=== PATIENT | male | born 1950 | race Asian ===

== ENCOUNTER 2020-11-04 10:29 | Emergency (ER) | payer MEDICARE, SELFPAY ==
[2020-11-04 10:50] VITALS: BP 120/70; BP 152/71; PULSE 68; PULSE 70; RESP 15; TEMP 35.7; O2SAT 97; BMI 32.0
--- NOTE | 2020-11-04 10:56 | PC.NURSE ---
pt's daughter sonty osmani [phone].
--- NOTE | 2020-11-04 12:11 | US_ITS ---
EXAMINATION: US VENOUS ULTRASOUND WITH DOPPLER LOWER EXTREMITY, RIGHT CLINICAL INFORMATION: Pain COMPARISON: None TECHNIQUE: Ultrasound of the deep veins is performed from the hip to the calf with compression sonography and color and pulse Doppler assessment. Spectral analysis with color-flow imaging is performed. FINDINGS: There is normal venous compression and respiratory variation and augmented flow. The visualized common femoral vein, superficial femoral vein, profunda femoral vein, popliteal vein, and the trifurcation region shows no evidence of deep venous thrombosis. There is no significant popliteal fossa cyst. . If the patient's symptoms persist, followup ultrasound in 5 days 7 days might be of value to exclude proximal propagation from a non-visualized calf vein. US/US venous duplex LE RT IMPRESSION: No DVT demonstrated in the right lower extremity.
--- NOTE | 2020-11-04 12:11 | XR_ITS ---
EXAMINATION: CR CHEST CLINICAL INFORMATION: Syncope. COMPARISON: None TECHNIQUE: AP upright portable view of the chest was obtained. FINDINGS: The cardiomediastinal silhouette is within normal limits in size. Lungs bilaterally are symmetrically expanded. Mild reticular prominence is seen in the lung bases bilaterally, right greater than left, likely due to crowding of bronchovascular lung markings and mild atelectasis. No focal consolidation, effusion or pneumothorax is seen. Minimal convex left thoracolumbar scoliosis is seen and mild degenerative changes are noted at the AC joints. XR/XR chest 1V IMPRESSION: Slight reticular prominence in the lung bases, likely due to crowding of bronchovascular markings and mild atelectasis.
--- NOTE | 2020-11-04 12:23 | ED_ITS ---
HPI - Syncope General Chief Complaint: Syncope Stated Complaint: syncope Time Seen by Provider: 11/04/20 12:04 Source: patient Mode of arrival: EMS Limitations: no limitations History of Present Illness HPI narrative: Patient is a 70-year-old male with a past medical history stating of hypertension, on meds, he had 1 syncopal episode and 1 near sycopal episode in the last 12 hours, home. Patient also states he was drinking a lot of beer last night, was unable to quantify and amount. Denied hard liquor or IV drug use or any illegal street drugs. Patient states he did not hit his head when he fell, is not on a blood thinner. Patient denies chest pain, neck pain, back pain, abdominal pain, left arm pain, shortness of breath or any other symptoms. States he feels he is sober right now. Patient states he has been eating and drinking non alcoholic beverages as well as drinking alcoholic beverages as norm al. Related Data Allergies Allergy/AdvReac Type Severity Reaction Status Date / Time No Known Allergies Allergy Unknown Unverified 07/27/20 15:11 Review of Systems Review of Systems: Yes all other systems are reviewed and are negative [facility] Social History Social History Smoking Status: Never smoker Use of substances other than those prescribed or required for medical reasons: No Advance Directives: No Advance Directives Information Provided: No Physical Exam Vital Signs: Vital Signs: Last Vital Signs Temp 98.1 F 11/04/20 14:40 Pulse 78 11/04/20 14:40 Resp 20 11/04/20 14:40 BP 149/83 H 11/04/20 14:40 Pulse Ox 98 11/04/20 14:40 Body Mass Index 32.0 Const: General: cooperative, healthy appearing, comfortable, no acute distress and well developed Nutritional Appearance: average body habitus Or ientation/consciousness: patient oriented x3 HENMT: Head: Yes normal to inspection and Yes No palpable skull fracture present Ears: external ears normal General nose exam: Normal external nose present Face and sinus: Yes normal facial exam Mouth: Normal oral and palatal mucosa present Eyes: General: appearance normal, both eyes and all related structures EOM: EOMs intact bilaterally Neck: Neck: Yes normal visual inspection, Yes full ROM and Yes supple Chest: Chest palpation & inspection: normal inspection of the chest Resp: Effort & Inspection: normal respiratory effort and able to speak in complete sentences Auscultation: clear to auscultation bilaterally Cardio: Rate: regular rate Rhythm: regular rhythm Heart sounds: normal S1 and S2 GI: Inspection: Yes normal to inspection Palpation (GI): Soft to palpation and nontender Auscultation: normal bowel sounds Skin: General skin exam: no rashes or lesions noted Neuro: General: patient oriented x3 Cranial nerves: Yes CN's II-XII intact bilaterally Cognition (Neuro): normal cognition Extrem: General: Yes normal to inspection Psych: Appearance: grossly normal Course Course Course Narrative: 70-year-old male with no significant past medical history states he had 1 near syncopal episode last night and then a syncopal episode. He admits to drinking several beers last night and states he was drunk. Cardiac workup is negative, electrolytes are grossly normal. Only injury is to his lower lip. Patient has negative tox screen, negative ethyl alcohol. Will discharge home with follow-up to PCP for possible Holter monitor if symptoms continue but this is likely due to his drinking. MDM - Syncope Differential Diagnosis Differential diagnosis: Likely syncope due to orthostatic hypotension, vasovagal syncope, complete atrioventricular block and dehydration Lab Data Attestation: I reviewed the patient's lab results. Result diagrams: 11/04/20 13:37 11/04/20 13:37 Labs: Lab Results 11/04/20 11/04/20 11/04/20 Range/Units 13:37 13:37 13:37 WBC 9.2 (4.8-10.8) X10*3/uL RBC 4.84 (4.60-5.80) X10*6/uL Hgb 15.2 (14.0-18.0) g/dl Hct 46.1 (42-52) % MCV 95.2 (80-98) fL MCH 31.4 (27.0-33.0) pg MCHC 33.0 (31.0-36.0) g/dl RDW 11.9 (11.0-16.0) % Plt Count 246 (160-400) X10*3/uL MPV 9.8 (9.4-12.4) fL Immature Gran % (Auto) 0.2 (0.0-0.4) % Neut % (Auto) 91.5 H (45-73) % Lymph % (Auto) 5.0 L (20-40) % Glades % (Auto) 3.0 (2-11) % Eos % (Auto) 0.1 (0-4) % Baso % (Auto) 0.2 (0-2) % Lymph # (Auto) 0.5 L (1.2-4.9) X10*3/uL Glades # (Auto) 0.3 (0.1-1.2) X10*3/uL Eos # (Auto) 0.0 (0.0-0.4) X10*3/uL Baso # (Auto) 0.0 (0.0-0.2) X10*3/uL Abs Immat Gran (auto) 0.02 (0.00-0.03) X10*3/uL Absolute Neuts (auto) 8.4 H (2.0-8.3) X10*3/uL Absolute Nucleated RBC 0.000 (0.0-0.012) X10*3/uL Nucleated RBC % (auto) 0.0 (0.0-0.2) /100WBC Smear Tech's Comments VERIFIED Hold Blue Top SEE NOTE Sodium 143 (135-145) mmol/L Potassium 4.6 (3.3-5.1) mmol/l Chloride 103 (96-108) mmol/L Carbon Dioxide 30 H (22-29) mmol/L Anion Gap 15 (12-20) BUN 19 H (9-16) mg/dL Creatinine 1.02 (0.5-1.4) mg/dL Estim Creat Clear Calc 61.4 Estimated GFR > 60 Random Glucose 107 (60-115) mg/dL Calcium 9.8 (8.4-10.2) mg/dL Phosphorus 4.5 (2.7-4.5) mg/dL Magnesium (1.6-2.6) mg/dL Troponin I High Sens (<3.5-35.0) ng/L B-Natriuretic Peptide (<100) pg/mL Ethyl Alcohol mg/dL 11/04/20 11/04/20 11/04/20 Range/Units 13:37 13:37 13:37 WBC (4.8-10.8) X10*3/uL RBC (4.60-5.80) X10*6/uL Hgb (14.0-18.0) g/dl Hct (42-52) % MCV (80-98) fL MCH (27.0-33.0) pg MCHC (31.0-36.0) g/dl RDW (11.0-16.0) % Plt Count (160-400) X10*3/uL MPV (9.4-12.4) fL Immature Gran % (Auto) (0.0-0.4) % Neut % (Auto) (45-73) % Lymph % (Auto) (20-40) % Glades % (Auto) (2-11) % Eos % (Auto) (0-4) % Baso % (Auto) (0-2) % Lymph # (Auto) (1.2-4.9) X10*3/uL Glades # (Auto) (0.1-1.2) X10*3/uL Eos # (Auto) (0.0-0.4) X10*3/uL Baso # (Auto) (0.0-0.2) X10*3/uL Abs Immat Gran (auto) (0.00-0.03) X10*3/uL Absolute Neuts (auto) (2.0-8.3) X10*3/uL Absolute Nucleated RBC (0.0-0.012) X10*3/uL Nucleated RBC % (auto) (0.0-0.2) /100WBC Smear Tech's Comments Hold Blue Top Sodium (135-145) mmol/L Potassium (3.3-5.1) mmol/l Chloride (96-108) mmol/L Carbon Dioxide (22-29) mmol/L Anion Gap (12-20) BUN (9-16) mg/dL Creatinine (0.5-1.4) mg/dL Estim Creat Clear Calc Estimated GFR Random Glucose (60-115) mg/dL Calcium (8.4-10.2) mg/dL Phosphorus (2.7-4.5) mg/dL Magnesium 2.1 (1.6-2.6) mg/dL Troponin I High Sens < 3.5 (<3.5-35.0) ng/L B-Natriuretic Peptide 34 (<100) pg/mL Ethyl Alcohol < 10 mg/dL Imaging Data US Right LE: Attestation: I personally reviewed and interpreted this imaging study as follows: Radiologist's impression: [id number] [place] [id number] Ultrasound Report Signed Patient: Zi Bingham#: [id number] : 1950Acct:[id number] Age/Sex: 70 / MADM Date: 11/04/20 Loc: HO.ED Attending Dr: Ordering Physician: SHANI ANDRE Date of Service: 11/04/20 Procedure(s): US venous duplex LE RT Accession Number(s): [id number] cc: SHANI ANDRE~ EXAMINATION: US VENOUS ULTRASOUND WITH DOPPLER LOWER EXTREMITY, RIGHT CLINICAL INFORMATION: Pain COMPARISON: None TECHNIQUE: Ultrasound of the deep veins is performed from the hip to the calf with compression sonography and color and pulse Doppler assessment. Spectral analysis with color-flow imaging is performed. FINDINGS: There is normal venous compression and respiratory variation and augmented flow. The visualized common femoral vein, superficial femoral vein, profunda femoral vein, popliteal vein, and the trifurcation region shows no evidence of deep venous thrombosis. There is no significant popliteal fossa cyst. . If the patient's symptoms persist, followup ultrasound in 5 days 7 days might be of value to exclude proximal propagation from a non-visualized calf vein. US/US venous duplex LE RT IMPRESSION: No DVT demonstrated in the right lower extremity. Dictated By:KEN DOCKERY MD Signed By:<Electronically signed by KEN DOCKERY MD in OV>11/04/20 1427 ECG Data Attestation: I personally reviewed and interpreted this ECG as follows: ECG interpretation date: 11/04/20 ECG interpretation time: 13:03 Prior ECG tracings: available for review Interpretation: Normal sinus rhythm nonspecific T-wave or abnormality which was present in V1 in January 2007. T-wave inversions in V2 and V3 which were not on his January 2007 EKG. Discharge Plan Discharge Clinical Impression: Alcohol intoxication, Vasovagal syncope, Acute pain of right lower extremity Patient Disposition: Home, Self-Care Additional Instructions: Your ultrasound of your right lower leg could not exclude proximal propagation from a nonvisualized calf vein. If your symptoms persist, we recommend a follow-up ultrasound in 5-7 days. You can do this through your primary care provider, please let them know you had an ultrasound at the [facility] Emergency Department on 11/04/2020 and this was the recommendation for persistent pain.
[2020-11-04 13:20] VITALS: BP 158/86; PULSE 73; RESP 18; O2SAT 97; O2SAT 99
[2020-11-04] MEDS: Aspirin 81 MG TAB.CHEW 324 MG PO (13:26)
[2020-11-04 13:44] LABS: Basophils Percent Auto 0.2 % (0-2); Eosinophils Percent Auto 0.1 % (0-4); Hematocrit 46.1 % (42-52); Hemoglobin 15.2 g/dl (14.0-18.0); Imm Gran Abs Auto 0.02 X10*3/uL (0.00-0.03); Imm Gran Pct Auto 0.2 % (0.0-0.4); Lymphocytes Absolute Auto 0.5 X10*3/uL (1.2-4.9); MANUAL DIFF FLAG SCAN; Mean Corpuscular Hemoglobin 31.4 pg (27.0-33.0); Mean Corpuscular Volume 95.2 fL (80-98); Mean Platelet Volume 9.8 fL (9.4-12.4); Monocytes Absolute Auto 0.3 X10*3/uL (0.1-1.2); Neutrophils Absolute Auto 8.4 X10*3/uL (2.0-8.3); Neutrophils Percent Auto 91.5 % (45-73); Platelet Count 246 X10*3/uL (160-400); Red Blood Count 4.84 X10*6/uL (4.60-5.80); Red Cell Distribution Width 11.9 % (11.0-16.0); SCAN SMEAR FLAG 1; White Blood Count 9.2 X10*3/uL (4.8-10.8)
[2020-11-04 14:04] LABS: SLIDE REVIEW VERIFIED
[2020-11-04 14:14] LABS: Ethanol < 10 mg/dL
[2020-11-04 14:15] LABS: Anion Gap 15 (12-20); Blood Urea Nitrogen 19 mg/dL (9-16); Calcium 9.8 mg/dL (8.4-10.2); Carbon Dioxide 30 mmol/L (22-29); Chloride 103 mmol/L (96-108); Creatinine Clr Calc Pharmacy 61.4; Estimated Glomerular Filt Rate > 60; Glucose Random 107 mg/dL (60-115); Phosphorus 4.5 mg/dL (2.7-4.5); Potassium 4.6 mmol/l (3.3-5.1); Sodium 143 mmol/L (135-145)
[2020-11-04 14:16] LABS: Magnesium 2.1 mg/dL (1.6-2.6)
[2020-11-04 14:24] LABS: B Type Natriuretic Peptide 34 pg/mL (<100); Troponin-I High Sensitivity < 3.5 ng/L (<3.5-35.0)
[2020-11-04 14:26] VITALS: PULSE 81; RESP 14; O2SAT 97
[2020-11-04 14:40] VITALS: BP 149/83; PULSE 78; RESP 20; TEMP 36.7; O2SAT 98
--- NOTE | 2020-11-07 | ECG_ITS ---
Test Reason : LEG PAIN Blood Pressure : / mmHG Vent. Rate : 067 BPM Atrial Rate : 067 BPM P-R Int : 166 ms QRS Dur : 082 ms QT Int : 424 ms P-R-T Axes : 061 041 071 degrees QTc Int : 448 ms Normal sinus rhythm Nonspecific T wave abnormality ; possibly ischemia Abnormal ECG When compared with ECG of 25-JAN-2007 16:31, Nonspecific T wave abnormality now evident in Anterolateral leads Referred By: Karlo Mobley Electronically Signed By:JONATHAN MASTERSON
== END 2020-11-04 15:15 | disposition home or self-care (01) ==
PROVIDERS: Physician Assistant; Emergency Provider Emergency Medicine Emergency Medical Services
DX: F10.920 Alcohol use, unspecified with intoxication, uncomplicated (principal); Y90.0 Blood alcohol level of less than 20 mg/100 ml; R55 Syncope and collapse; M79.661 Pain in right lower leg
CPT/HCPCS: 36415; 71045; 80048; 80320; 83735; 83880; 84100; 84484; 85025; 93005; 93971; 99285

== ENCOUNTER 2020-12-14 08:53 | Outpatient (REF) | payer MEDICARE, SELFPAY ==
[2020-12-14 10:13] LABS: Anion Gap 13 (12-20); Blood Urea Nitrogen 18 mg/dL (9-16); Calcium 9.3 mg/dL (8.4-10.2); Carbon Dioxide 27 mmol/L (22-29); Chloride 104 mmol/L (96-108); Creatinine Urine 14.85 mg/dL; Estimated Glomerular Filt Rate > 60; Sodium 140 mmol/L (135-145); Total Protein Urine Random < 7 mg/dL (<12)
== END 2020-12-14 08:54 | disposition home or self-care (01) ==
LOC: HO.LAB 08:53
PROVIDERS: Visit Provider Internal Medicine Hypertension Specialist
DX: I12.9 Hypertensive chronic kidney disease with stage 1 through stage 4 chronic kidney disease, or unspecified chronic kidney disease (principal); N18.2 Chronic kidney disease, stage 2 (mild)
CPT/HCPCS: 36415; 80051; 82310; 82565; 84156; 84520

== ENCOUNTER 2021-07-20 06:49 | Outpatient (REF) | payer MEDICARE, SELFPAY ==
[2021-07-20 07:36] LABS: MANUAL DIFF FLAG NO
[2021-07-20 07:38] LABS: Basophils Percent Auto 0.7 % (0-2); Eosinophils Absolute Auto 0.3 X10*3/uL (0.0-0.4); Eosinophils Percent Auto 5.1 % (0-4); Hematocrit 40.9 % (42-52); Hemoglobin 13.4 g/dl (14.0-18.0); Imm Gran Abs Auto 0.02 X10*3/uL (0.00-0.03); Imm Gran Pct Auto 0.3 % (0.0-0.4); Lymphocytes Absolute Auto 1.5 X10*3/uL (1.2-4.9); Lymphocytes Percent Auto 24.5 % (20-40); Mean Corpuscular HGB Conc 32.8 g/dl (31.0-36.0); Mean Corpuscular Hemoglobin 31.1 pg (27.0-33.0); Mean Corpuscular Volume 94.9 fL (80-98); Mean Platelet Volume 10.9 fL (9.4-12.4); Monocytes Absolute Auto 0.6 X10*3/uL (0.1-1.2); Monocytes Percent Auto 9.9 % (2-11); Neutrophils Absolute Auto 3.6 X10*3/uL (2.0-8.3); Neutrophils Percent Auto 59.5 % (45-73); Platelet Count 195 X10*3/uL (160-400); Red Blood Count 4.31 X10*6/uL (4.60-5.80); Red Cell Distribution Width 12.6 % (11.0-16.0); White Blood Count 6.1 X10*3/uL (4.8-10.8)
[2021-07-20 07:59] LABS: Alanine Aminotransferase 20 U/L (0-40); Albumin Level 3.9 g/dL (3.5-5.0); Alkaline Phosphatase 91 U/L (39-117); Anion Gap 8 (12-20); Aspartate Amino Transferase 21 U/L (5-37); Blood Urea Nitrogen 12 mg/dL (9-16); Calcium 9.8 mg/dL (8.4-10.2); Carbon Dioxide 30 mmol/L (22-29); Chloride 109 mmol/L (96-108); Cholesterol 174 mg/dL; Estimated Glomerular Filt Rate > 60; Glucose Random 83 mg/dL (60-115); HDL Cholesterol 62 mg/dL; LDL Cholesterol Calculated 93 mg/dl; Potassium 3.9 mmol/L (3.3-5.1); Sodium 143 mmol/L (135-145); Total Protein 7.2 g/dL (6.5-8.0); Triglycerides 96 mg/dL
[2021-07-20 09:34] LABS: Creatinine Urine 140.76 mg/dL; Protein/Creatinine Ratio, Ur 0.11 (<0.2); Total Protein Urine Random 15 mg/dL (<12)
== END 2021-07-20 06:50 | disposition home or self-care (01) ==
LOC: HO.LAB 06:49
PROVIDERS: PCP Internal Medicine; Visit Provider Internal Medicine Hypertension Specialist
DX: N18.2 Chronic kidney disease, stage 2 (mild) (principal)
CPT/HCPCS: 36415; 80053; 80061; 84156; 85025

== ENCOUNTER 2021-08-23 06:17 | Outpatient (REF) | payer MEDICARE, SELFPAY ==
[2021-08-23 11:29] LABS: MANUAL DIFF FLAG NO
[2021-08-23 11:35] LABS: Basophils Percent Auto 0.6 % (0-2); Eosinophils Absolute Auto 0.4 X10*3/uL (0.0-0.4); Eosinophils Percent Auto 7.1 % (0-4); Hematocrit 40.9 % (42-52); Hemoglobin 13.1 g/dl (14.0-18.0); Imm Gran Abs Auto 0.02 X10*3/uL (0.00-0.03); Imm Gran Pct Auto 0.4 % (0.0-0.4); Lymphocytes Absolute Auto 1.7 X10*3/uL (1.2-4.9); Mean Corpuscular Hemoglobin 30.8 pg (27.0-33.0); Mean Corpuscular Volume 96.2 fL (80-98); Mean Platelet Volume 11.5 fL (9.4-12.4); Monocytes Absolute Auto 0.5 X10*3/uL (0.1-1.2); Monocytes Percent Auto 9.4 % (2-11); Neutrophils Absolute Auto 2.3 X10*3/uL (2.0-8.3); Neutrophils Percent Auto 47.5 % (45-73); Platelet Count 261 X10*3/uL (160-400); Red Blood Count 4.25 X10*6/uL (4.60-5.80); Red Cell Distribution Width 12.4 % (11.0-16.0); White Blood Count 4.9 X10*3/uL (4.8-10.8)
[2021-08-23 11:54] LABS: Alanine Aminotransferase 19 U/L (0-40); Albumin Level 3.9 g/dL (3.5-5.0); Alkaline Phosphatase 113 U/L (39-117); Anion Gap 9 (12-20); Aspartate Amino Transferase 28 U/L (5-37); Bilirubin Total 0.2 mg/dL (0.0-1.0); Blood Urea Nitrogen 19 mg/dL (9-16); Calcium 9.1 mg/dL (8.4-10.2); Carbon Dioxide 29 mmol/L (22-29); Chloride 108 mmol/L (96-108); Cholesterol 167 mg/dL; Estimated Average Glucose 85 mg/dL; Estimated Glomerular Filt Rate > 60; Glucose Random 81 mg/dL (60-115); HDL Cholesterol 59 mg/dL; Hemoglobin A1c % 4.6 %; LDL Cholesterol Calculated 95 mg/dl; Potassium 4.4 mmol/L (3.3-5.1); Sodium 142 mmol/L (135-145); Total Protein 7.2 g/dL (6.5-8.0); Triglycerides 67 mg/dL
[2021-08-23 12:11] LABS: Free T4 (Free Thyroxine) 0.95 ng/dL (0.71-1.85); Prostate Specific Antigen Scr 0.56 ng/mL (<0.05-4.0)
[2021-08-23 12:26] LABS: Folate 6.5 ng/mL (> or = 4.0); Vitamin B12 947 pg/mL (200-900)
== END 2021-08-23 06:18 | disposition home or self-care (01) ==
LOC: HO.HMGCLDS 06:17
PROVIDERS: PCP Internal Medicine; Visit Provider Internal Medicine
DX: Z12.5 Encounter for screening for malignant neoplasm of prostate (principal); E78.00 Pure hypercholesterolemia, unspecified; I10 Essential (primary) hypertension
CPT/HCPCS: 36415; 80053; 80061; 82607; 82746; 83036; 84153; 84439; 84443; 85025

== ENCOUNTER 2022-01-23 06:26 | Day surgery (SDC) | payer MEDICARE, SELFPAY ==
[2022-01-17 11:59] VITALS: BMI 23.1
--- NOTE | 2022-01-21 14:30 | HO.ANESPROP2 ---
Documented by User: Kathy Lora NP 01/21/22 14:32 HPI - Anesthesia Eval Consult details Narrative: 71yo M for Colonoscopy PMFSH Active Problems Active Problems: All Active Problems (Updated 01/17/22 @ 11:59 by Kamala Funez RN) Colon cancer screening (Acute) Constipation (Acute) Peripheral neuropathy (Acute) Encounter for Medicare annual wellness exam (Acute ~08/31/21) Mild depression (Acute) Nephrotic syndrome (Acute) Hypercholesterolemia (Acute) Hypertension (Acute) Past Medical History Medical History Alcohol intoxication Chronic renal insufficiency COVID-19 vaccine series completed Hypercholesterolemia Hypertension Surgical History Surgical History Hx of hand surgery Social History Social History (Updated 08/31/21 @ 14:17 by ANDRESSA Marie) Housing: House Are you a primary personal care attendant to a significant other at home: No Do you presently have visiting nurse or other home services: No Alcohol intake: current Alcohol intake frequency: a few times a month Patient Tobacco Use Status: Never used Tobacco Use of substances other than those prescribed or required for medical reasons: No Have you been hit, kicked, punched, or otherwise hurt by someone within the past year? If so, by whom?: No Are you DNR?: No Advance Directives: Yes (HCP dated 01/26/07) Advance Directives Information Provided: Yes Advance Directives on File: Yes Advance Directives Date on File: 08/19/14 Recently lost weight without trying: No Eating poorly because of decreased appetite: No Nutrition Risks: No Nutritional Risk Poor oral hygiene: No service: No Current occupational status: retired [employer] Allergies Allergy/AdvReac Type Severity Reaction Status Date / Time No Known Allergies Allergy Unknown Verified 01/23/22 05:59 Home Medications Medication Instructions Recorded Confirmed Last Taken Type cholecalciferol (vitamin D3) 125 125 mcg PO DAILY 03/22/21 01/17/22 Unknown History mcg (5,000 unit) capsule losartan 100 mg tablet 100 mg PO DAILY 03/22/21 01/17/22 Unknown History simvastatin 20 mg tablet 20 mg PO DAILY 03/22/21 01/17/22 Unknown History Exam Exam Date and Time: January 21, 2022 1430 Height,Weight and Vital Signs: Height 5 ft 4 in Weight 61.235 kg Pertinent Lab Results Pertinent Lab Results: Laboratory Tests 08/23/21 08/23/21 06:25 06:25 WBC 4.9 Hgb 13.1 L Hct 40.9 L Plt Count 261 D Sodium 142 Potassium 4.4 Chloride 108 Carbon Dioxide 29 BUN 19 H D Creatinine 0.90 Assessment and Plan Assessment Anesthesia Assessment: Chart Reviewed Documented by User: Tato Little MD 01/23/22 14:48 HPI - Anesthesia Eval Consult details Narrative: 71yo M for Colonoscopy. [facility] Past Medical History Medical History Alcohol intoxication Chronic renal insufficiency COVID-19 vaccine series completed Hypercholesterolemia Hypertension Family History Family history of problems with anesthesia: No Surgical History Surgical History Hx of hand surgery History of Problems with Anesthesia: No Social History Social History (Updated 08/31/21 @ 14:17 by ANDRESSA Marie) Housing: House Are you a primary personal care attendant to a significant other at home: No Do you presently have visiting nurse or other home services: No Alcohol intake: current Alcohol intake frequency: a few times a month Patient Tobacco Use Status: Never used Tobacco Use of substances other than those prescribed or required for medical reasons: No Have you been hit, kicked, punched, or otherwise hurt by someone within the past year? If so, by whom?: No Are you DNR?: No Advance Directives: Yes (HCP dated 01/26/07) Advance Directives Information Provided: Yes Advance Directives on File: Yes Advance Directives Date on File: 08/19/14 Recently lost weight without trying: No Eating poorly because of decreased appetite: No Nutrition Risks: No Nutritional Risk Poor oral hygiene: No service: No Current occupational status: retired Meds Allergies Allergy/AdvReac Type Severity Reaction Status Date / Time No Known Allergies Allergy Unknown Verified 01/23/22 05:59 Home Medications Medication Instructions Recorded Confirmed Last Taken Type cholecalciferol (vitamin D3) 125 125 mcg PO DAILY 03/22/21 01/17/22 Unknown History mcg (5,000 unit) capsule losartan 100 mg tablet 100 mg PO DAILY 03/22/21 01/17/22 Unknown History simvastatin 20 mg tablet 20 mg PO DAILY 03/22/21 01/17/22 Unknown History Exam Airway Mallampati Class: II TM Dist: >3cm Neck ROM: Full Loose/Missing/Broken Teeth: Yes Heart: rrr Lungs: bl breath sounds Assessment and Plan Final Anesthetic Review Family History of Problems with Anesthesia: No History of Problems with Anesthesia: No NPO: Yes ASA Class: III Final Preanesthetic Review: Meds/Allgs Chart Reviewed, Consent Obtained/Reviewed and Anes Risks/Benef Reviewed Patient Risk: Intermediate Procedure Risk: Intermediate Anesthetic Plan Anesthetic Plan: MAC: Disposition: Standard PACU
[2022-01-23 06:56] VITALS: BP 188/90; PULSE 84; RESP 16; TEMP 36.6; O2SAT 99
[2022-01-23] MEDS: Lactated Ringers 1,000 ML 100 ML IVCONT (07:01)
[2022-01-23 08:27] VITALS: BP 116/63; PULSE 65; RESP 17; TEMP 36.8; O2SAT 97
--- NOTE | 2022-01-23 08:27 | P.BOP_ITS ---
Brief Operative Note Date of Service: 01/23/22 Pre-op diagnosis: Screening Post-op diagnosis: other (Polyps, Hemorrhoids) Procedure: Colonoscopy to the cecum and TI with bx/removal of polyps Surgeon: Paul Alba Anesthesia: MAC Was an [employer] Firearms used for this Procedure?: No Estimated blood loss (mL): 2.0 Pathology: other (A. Ascending colon polyps B. Polyp at 20cm) Condition: stable Disposition: PACU
[2022-01-23 08:42] VITALS: BP 152/78; PULSE 64; RESP 16; TEMP 36.5; O2SAT 96
--- NOTE | 2022-01-23 10:05 | OP_ITS ---
SURGEON: Paul Alba MD INDICATIONS: The patient presents for evaluation of colorectal cancer screening. Full consent was obtained from him for this, including risks of bleeding and perforation. PREOPERATIVE DIAGNOSIS: Colorectal cancer screening. POSTOPERATIVE DIAGNOSIS: PROCEDURE PERFORMED: Colonoscopy to the cecum and terminal ileum with biopsy and removal of polyps. ESTIMATED BLOOD LOSS: COMPLICATIONS: ANESTHESIA: Monitored anesthesia care. ASSISTANTS: SPECIMENS: POSTOPERATIVE DIAGNOSES: Colorectal cancer screening, small colon polyps, diverticulosis, internal and external hemorrhoids. DESCRIPTION OF PROCEDURE: The patient was placed in the left lateral decubitus position. The digital rectal exam revealed a large, nontender, soft external hemorrhoid. The Olympus video pediatric colonoscope was entered into the rectum and advanced easily to the cecum. Once in the cecum, I did identify normal-appearing cecal pouch with appendiceal orifice and a normal-appearing ileocecal valve. The terminal ileum was cannulated and appeared normal. The scope was withdrawn back in the colon. The entire cecum and ileocecal valve appeared normal. The scope was slowly withdrawn assessing all mucosal surfaces carefully. Preparation was excellent. In the ascending colon were 2 flat, approximately 4 mm polyps, which were each biopsied and completely removed with cold biopsy forceps. At 30 cm, was a flat 3 or 4 mm polyp, which was biopsied and completely removed with cold biopsy forceps. I did not visualize any other polyps, colitis, or angiodysplasia. There was a mild amount of sigmoid diverticulosis. In the rectum, scope was retroflexed visualizing internal hemorrhoids, but no other pathology. The rectal mucosa appeared normal. Scope was straightened and withdrawn from the patient. He tolerated the procedure well and was returned to recovery area in stable condition. IMPRESSION: 1. Colon polyps, status post biopsy and removal. 2. Diverticulosis. 3. Internal and external hemorrhoids. PLAN: The results of the biopsies will be checked. If these are tubular adenoma, I would recommend a followup colonoscopy in 5 years. If they are only hyperplastic then I do not think he would need a further screening colonoscopies. He was advised not to use any aspirin or NSAIDs for 1 week. In regard to the large external hemorrhoid, I did give him the name of Dr. Ochoa in the event it becomes bothersome from a symptomatic standpoint. MD JOANNE Perez/TAMERA / [id number] ABEL
== END 2022-01-23 09:13 | disposition home or self-care (01) ==
PROVIDERS: PCP Internal Medicine; Visit Provider Internal Medicine
PROC: 0DJD8ZZ Inspection of Lower Intestinal Tract, Via Natural or Artificial Opening Endoscopic (ICD-10-PCS; CPT 45378; principal; 2022-01-23 07:30)
DX: Z12.11 Encounter for screening for malignant neoplasm of colon (principal); D12.2 Benign neoplasm of ascending colon; D12.5 Benign neoplasm of sigmoid colon; K57.30 Diverticulosis of large intestine without perforation or abscess without bleeding; K64.8 Other hemorrhoids; K64.4 Residual hemorrhoidal skin tags; E78.00 Pure hypercholesterolemia, unspecified; I12.9 Hypertensive chronic kidney disease with stage 1 through stage 4 chronic kidney disease, or unspecified chronic kidney disease; N18.2 Chronic kidney disease, stage 2 (mild); Z79.899 Other long term (current) drug therapy
CPT/HCPCS: 45380; 88305

== ENCOUNTER 2022-01-25 07:47 | Outpatient (REF) | payer MEDICARE, SELFPAY ==
[2022-01-25 11:45] LABS: Creatinine Urine 91.43 mg/dL
[2022-01-25 11:48] LABS: Anion Gap 10 (12-20); Blood Urea Nitrogen 10 mg/dL (9-16); Calcium 9.1 mg/dL (8.4-10.2); Carbon Dioxide 27 mmol/L (22-29); Chloride 108 mmol/L (96-108); Estimated Glomerular Filt Rate > 60; Potassium 3.8 mmol/L (3.3-5.1); Sodium 141 mmol/L (135-145)
[2022-01-25 11:58] LABS: Protein/Creatinine Ratio, Ur 2.31 (<0.2); Total Protein Urine Random 211 mg/dL (<12)
== END 2022-01-25 07:48 | disposition home or self-care (01) ==
LOC: HO.HMGCLDS 07:47
PROVIDERS: PCP Internal Medicine; Visit Provider Internal Medicine Hypertension Specialist
DX: N04.1 Nephrotic syndrome with focal and segmental glomerular lesions (principal)
CPT/HCPCS: 36415; 80051; 82310; 82565; 84156; 84520

== ENCOUNTER 2022-02-26 08:08 | Outpatient (REF) | payer MEDICARE, SELFPAY ==
[2022-02-26 11:52] LABS: Hematocrit 44.3 % (42.0-52.0); Hemoglobin 14.1 g/dl (14.0-18.0); Mean Corpuscular HGB Conc 31.8 g/dl (31.0-36.0); Mean Corpuscular Hemoglobin 30.8 pg (27.0-33.0); Mean Corpuscular Volume 96.7 fL (80.0-98.0); Mean Platelet Volume 10.8 fL (9.4-12.4); Platelet Count 232 X10*3/uL (160-400); Red Blood Count 4.58 X10*6/uL (4.60-5.80); Red Cell Distribution Width 14.4 % (11.0-16.0); White Blood Count 5.8 X10*3/uL (4.8-10.8)
[2022-02-26 12:08] LABS: Anion Gap 13 (12-20); Blood Urea Nitrogen 18 mg/dL (9-16); Calcium 9.6 mg/dL (8.4-10.2); Carbon Dioxide 25 mmol/L (22-29); Chloride 105 mmol/L (96-108); Estimated Glomerular Filt Rate > 60; Sodium 139 mmol/L (135-145)
[2022-02-26 12:30] LABS: Creatinine Urine 107.97 mg/dL; Total Protein Urine Random < 7 mg/dL (<12)
== END 2022-02-26 08:09 | disposition home or self-care (01) ==
LOC: HO.HMGCLDS 08:08
PROVIDERS: PCP Internal Medicine; Visit Provider Internal Medicine Hypertension Specialist
DX: N04.1 Nephrotic syndrome with focal and segmental glomerular lesions (principal)
CPT/HCPCS: 36415; 80051; 82310; 82565; 84156; 84520; 85027

== ENCOUNTER 2022-04-16 06:43 | Outpatient (REF) | payer MEDICARE, SELFPAY ==
[2022-04-16 11:35] LABS: MANUAL DIFF FLAG NO
[2022-04-16 11:40] LABS: Basophils Percent Auto 0.3 % (0-2); Eosinophils Percent Auto 0.3 % (0-4); Hematocrit 45.3 % (42.0-52.0); Hemoglobin 14.2 g/dl (14.0-18.0); Imm Gran Abs Auto 0.02 X10*3/uL (0.00-0.03); Imm Gran Pct Auto 0.3 % (0.0-0.4); Lymphocytes Absolute Auto 1.3 X10*3/uL (1.2-4.9); Lymphocytes Percent Auto 21.4 % (20-40); Mean Corpuscular HGB Conc 31.3 g/dl (31.0-36.0); Mean Corpuscular Hemoglobin 31.1 pg (27.0-33.0); Mean Corpuscular Volume 99.1 fL (80.0-98.0); Mean Platelet Volume 10.7 fL (9.4-12.4); Monocytes Absolute Auto 0.3 X10*3/uL (0.1-1.2); Monocytes Percent Auto 5.6 % (2-11); Neutrophils Absolute Auto 4.3 x10*3/uL (2.0-8.3); Neutrophils Percent Auto 72.1 % (45-73); Platelet Count 230 X10*3/uL (160-400); Red Blood Count 4.57 X10*6/uL (4.60-5.80); Red Cell Distribution Width 13.2 % (11.0-16.0); White Blood Count 5.9 X10*3/uL (4.8-10.8)
[2022-04-16 11:53] LABS: Alanine Aminotransferase 25 U/L (0-40); Albumin Level 4.1 g/dL (3.5-5.0); Alkaline Phosphatase 71 U/L (39-117); Anion Gap 12 (12-20); Aspartate Amino Transferase 22 U/L (5-37); Bilirubin Total 0.6 mg/dL (0.0-1.0); Blood Urea Nitrogen 19 mg/dL (9-16); Calcium 9.4 mg/dL (8.4-10.2); Carbon Dioxide 26 mmol/L (22-29); Chloride 107 mmol/L (96-108); Estimated Glomerular Filt Rate > 60; Glucose Random 116 mg/dL (60-115); Magnesium 2.4 mg/dL (1.6-2.6); Phosphorus 3.4 mg/dL (2.7-4.5); Sodium 141 mmol/L (135-145); Total Protein 7.1 g/dL (6.5-8.0)
[2022-04-16 12:14] LABS: Creatinine Urine 95.61 mg/dL; Total Protein Urine Random < 7 mg/dL (<12)
== END 2022-04-16 06:44 | disposition home or self-care (01) ==
LOC: HO.HMGCLDS 06:43
PROVIDERS: Absent Provider Internal Medicine Hypertension Specialist; PCP Internal Medicine; Visit Provider Internal Medicine
DX: N04.1 Nephrotic syndrome with focal and segmental glomerular lesions (principal); R25.2 Cramp and spasm
CPT/HCPCS: 36415; 80053; 83735; 84100; 84156; 85025

== ENCOUNTER 2022-05-03 18:23 | Emergency (ER) | payer MEDICARE, SELFPAY ==
[2022-05-03 19:05] VITALS: BP 124/82; PULSE 81; RESP 24; TEMP 36.9; O2SAT 98; BMI 23.1
[2022-05-03 19:21] LABS: MANUAL DIFF FLAG NO
[2022-05-03 19:23] LABS: Basophils Percent Auto 0.1 % (0-2); Eosinophils Percent Auto 0.1 % (0-4); Hematocrit 41.7 % (42.0-52.0); Hemoglobin 13.8 g/dl (14.0-18.0); Imm Gran Abs Auto 0.02 X10*3/uL (0.00-0.03); Imm Gran Pct Auto 0.3 % (0.0-0.4); Lymphocytes Absolute Auto 0.9 X10*3/uL (1.2-4.9); Lymphocytes Percent Auto 13.7 % (20-40); Mean Corpuscular HGB Conc 33.1 g/dl (31.0-36.0); Mean Corpuscular Hemoglobin 31.8 pg (27.0-33.0); Mean Corpuscular Volume 96.1 fL (80.0-98.0); Mean Platelet Volume 9.9 fL (9.4-12.4); Monocytes Absolute Auto 0.7 X10*3/uL (0.1-1.2); Monocytes Percent Auto 10.6 % (2-11); Neutrophils Absolute Auto 5.1 x10*3/uL (2.0-8.3); Neutrophils Percent Auto 75.2 % (45-73); Platelet Count 176 X10*3/uL (160-400); Red Blood Count 4.34 X10*6/uL (4.60-5.80); White Blood Count 6.8 X10*3/uL (4.8-10.8)
[2022-05-03 19:35] LABS: COVID-19 Test Positive (Negative)
[2022-05-03 19:38] LABS: Alanine Aminotransferase 50 U/L (0-40); Albumin Level 3.8 g/dL (3.5-5.0); Alkaline Phosphatase 70 U/L (39-117); Anion Gap 14 (12-20); Aspartate Amino Transferase 43 U/L (5-37); Bilirubin Total 0.7 mg/dL (0.0-1.0); Blood Urea Nitrogen 23 mg/dL (9-16); Calcium 8.8 mg/dL (8.4-10.2); Carbon Dioxide 24 mmol/L (22-29); Chloride 99 mmol/L (96-108); Creatinine Clr Calc Pharmacy 47.5; Estimated Glomerular Filt Rate 57; Glucose Random 103 mg/dL (60-115); Potassium 3.7 mmol/L (3.3-5.1); Sodium 133 mmol/L (135-145); Total Protein 6.6 g/dL (6.5-8.0)
--- NOTE | 2022-05-03 22:48 | ED_ITS ---
HPI - General Adult General Chief complaint: General Medical Stated complaint: COVID+/hemorrhoids complications Time Seen by Provider: 05/03/22 18:26 History of Present Illness HPI narrative: Patient is 71 years old with a history of coughing congestion upper respiratory symptoms that been ongoing for about 5 days. Coughing nonproductive. Patient had a home COVID test was positive. The [facility] received 2 shots of vaccine +1 dose of booster. Positive history of colon adenoma removal. History of hemorrhoids. History of hypercholesterolemia hypertension. Patient also complaining of his hemorrhoids hurting for the last few months not getting any better wants help. Patient from home. Related Data Home Medications Medication Instructions Recorded Confirmed cholecalciferol (vitamin D3) 125 125 mcg PO DAILY 03/22/21 03/01/22 mcg (5,000 unit) capsule losartan 100 mg tablet 100 mg PO DAILY 03/22/21 03/01/22 simvastatin 20 mg tablet 20 mg PO DAILY 03/22/21 03/01/22 mycophenolate mofetil 500 mg tablet 500 mg PO BID 03/01/22 03/01/22 prednisone 10 mg tablet 15 mg PO DAILY 03/01/22 03/01/22 Previous Rx's Medication Instructions Recorded diclofenac sodium 1 % topical gel 4 g topical QID #100 grams 03/01/22 (Voltaren Arthritis Pain) hydrocortisone 2.5 % topical cream 1 appl TN BID-QID PRN itching #30 03/01/22 with perineal applicator grams (Proctosol HC) polyethylene glycol 3350 17 gram 17 g PO DAILY 30 days #30 ea 03/01/22 oral powder packet (Miralax) tizanidine 4 mg capsule 4 mg PO BEDTIME PRN muscle 03/01/22 spasticity 30 days #30 caps hydrocortisone 1 % topical cream 1 appl topical TID PRN hemorrhoids 05/03/22 (Preparation H Hydrocortisone) #28.4 grams Allergies Allergy/AdvReac Type Severity Reaction Status Date / Time No Known Allergies Allergy Unknown Verified 03/01/22 14:49 Review of Systems Review of Systems: Positive coughing upper respiratory symptoms Yes all other systems are reviewed and are negative PMFSH Past Medical History Attestation statement: The following information was validated with the patient. Medical History Alcohol intoxication Chronic renal insufficiency Colon cancer screening COVID-19 vaccine series completed Surgical History Hx of hand surgery Social History Social History Housing: House Are you a primary child care center administrator to a significant other at home: No Do you presently have visiting nurse or other home services: No Alcohol intake: current Alcohol intake frequency: a few times a month Patient Tobacco Use Status: Former Tobacco user Tobacco use type: Cigarette e-Cigarette/Vaping Use: Never Used Advance Directives: Yes Advance Directives on File: Yes Advance Directives Date on File: 01/24/22 service: No Current occupational status: retired Cognitive needs: No Hearing needs: No Vision needs: Yes Physical Exam ED Vital Signs: Vital Signs - 24 hr 05/03/22 19:05 Temperature 98.4 F Pulse Rate 81 Respiratory Rate 24 H Blood Pressure 124/82 Pulse Oximetry 98 Oxygen Delivery Method Room Air BMI result Body Mass Index 23.1 Appearance: Alert. Oriented X3. No acute distress. Eyes: Pupils equal, round and reactive to light. ENT: Pharynx normal. Neck: Normal inspection. Neck supple. No lymph nodes noted. No crepitus CVS: Normal heart rate and rhythm. Pulses normal. Normal S1 and S2 Respiratory: No respiratory distress. Breath sounds normal. No Wheezing. No rales Abdomen: Soft and nontender. No rigidity. No distention. good BS x4 Rectal exam done with nurse Skye present there is a large external hemorrhoid noted. No active bleeding. Skin: Skin warm and dry. Normal skin color. Normal skin turgor. Extremities: No lower extremity edema. Neurovascular intact to all extremities. No Lacerations. No Rash Neuro: Oriented X 3. No motor deficit. No sensory deficit. Moving all extermities. No slurred speech Medical Decision Making MDM Narrative Medical decision making narrative: Large external hemorrhoid. Will need follow-up with surgery on an outpatient basis. Positive COVID lungs are clear O2 sat 90% symptoms 5 days not a candidate for paxlovid. Will discharge patient home symptomatic control. Lab Data Result diagrams: 05/03/22 19:13 05/03/22 19:13 Labs: Lab Results 06/24/22 06/24/22 06/24/22 Range/Units 19:13 19:13 19:13 WBC 6.8 (4.8-10.8) X10*3/uL RBC 4.34 L (4.60-5.80) X10*6/uL Hgb 13.8 L (14.0-18.0) g/dl Hct 41.7 L (42.0-52.0) % MCV 96.1 (80.0-98.0) fL MCH 31.8 (27.0-33.0) pg MCHC 33.1 (31.0-36.0) g/dl RDW 13.0 (11.0-16.0) % Plt Count 176 (160-400) X10*3/uL MPV 9.9 (9.4-12.4) fL Immature Gran % (Auto) 0.3 (0.0-0.4) % Neut % (Auto) 75.2 H (45-73) % Lymph % (Auto) 13.7 L (20-40) % [place] % (Auto) 10.6 (2-11) % Eos % (Auto) 0.1 (0-4) % Baso % (Auto) 0.1 (0-2) % Lymph # (Auto) 0.9 L (1.2-4.9) X10*3/uL [place] # (Auto) 0.7 (0.1-1.2) X10*3/uL Eos # (Auto) 0.0 (0.0-0.4) X10*3/uL Baso # (Auto) 0.0 (0.0-0.2) X10*3/uL Abs Immat Gran (auto) 0.02 (0.00-0.03) X10*3/uL Absolute Neuts (auto) 5.1 (2.0-8.3) x10*3/uL Absolute Nucleated RBC 0.000 (0.0-0.012) X10*3/uL Nucleated RBC % (auto) 0.0 (0.0-0.2) /100WBC Sodium 133 L (135-145) mmol/L Potassium 3.7 (3.3-5.1) mmol/L Chloride 99 (96-108) mmol/L Carbon Dioxide 24 (22-29) mmol/L Anion Gap 14 (12-20) BUN 23 H (9-16) mg/dL Creatinine 1.24 (0.5-1.4) mg/dL Estim Creat Clear Calc 47.5 Estimated GFR 57 Random Glucose 103 (60-115) mg/dL Calcium 8.8 D (8.4-10.2) mg/dL Total Bilirubin 0.7 (0.0-1.0) mg/dL AST 43 H D (5-37) U/L ALT 50 H (0-40) U/L Alkaline Phosphatase 70 (39-117) U/L Total Protein 6.6 (6.5-8.0) g/dL Albumin 3.8 (3.5-5.0) g/dL COVID-19 (DOMINGO) Positive A (Negative) COVID-19 Clin Com See Note Discharge Plan Discharge Clinical Impression: COVID-19, External hemorrhoid Patient Disposition: Home, Self-Care Prescriptions: New hydrocortisone [Preparation H Hydrocortisone] 1 % cream 1 appl topical TID PRN (Reason: hemorrhoids) Qty: 28.4 0RF No Action simvastatin 20 mg tablet 20 mg PO DAILY losartan 100 mg tablet 100 mg PO DAILY cholecalciferol (vitamin D3) 125 mcg (5,000 unit) capsule 125 mcg PO DAILY prednisone 10 mg tablet 15 mg PO DAILY mycophenolate mofetil 500 mg tablet 500 mg PO BID tizanidine 4 mg capsule 4 mg PO BEDTIME PRN (Reason: muscle spasticity) 30 Days Qty: 30 3RF polyethylene glycol 3350 [Miralax] 17 gram powder in packet 17 g PO DAILY 30 Days Qty: 30 5RF hydrocortisone [Proctosol HC] 2.5 % cream with perineal applicator 1 appl TN BID-QID PRN (Reason: itching) Qty: 30 5RF diclofenac sodium [Voltaren Arthritis Pain] 1 % gel 4 g topical QID Qty: 100 1RF Rx Instructions: apply to single knee, ankle, foot; for foot includes sole/toes/top of foot Referrals: Po,Edilberto Perea MD [Primary Care Provider] - Jose Manuel Ochoa MD [Physician] -
== END 2022-05-03 23:06 | disposition home or self-care (01) ==
PROVIDERS: Emergency Medicine; Emergency Provider Emergency Medicine Emergency Medical Services; PCP Internal Medicine
DX: U07.1 COVID-19 (principal); K64.4 Residual hemorrhoidal skin tags; Z79.899 Other long term (current) drug therapy; Z87.891 Personal history of nicotine dependence
CPT/HCPCS: 80053; 85025; 87635; 99282; 99283

== ENCOUNTER → 2022-05-16 08:47 | Outpatient (BNVA) | payer MEDICARE, SELFPAY | PROVIDERS: PCP Internal Medicine; Visit Provider Surgery | DX: K64.8 Other hemorrhoids (principal); K64.4 Residual hemorrhoidal skin tags | CPT/HCPCS: 46600; 99202 ==

== ENCOUNTER 2022-05-31 08:09 | Day surgery (SDC) | payer MEDICARE, SELFPAY ==
[2022-05-27 12:10] VITALS: BMI 23.0
--- NOTE | 2022-05-30 09:46 | P.CONAN_ITS ---
Documented by User: Kathy Lora NP 05/30/22 09:48 HPI - Anesthesia Eval Consult details Narrative: 71yo M for Exam Under Anesthesia, Hemorrhoidectomy s/p colo 01/2022 with [facility] Active Problems Active Problems: All Active Problems (Updated 05/27/22 @ 12:02 by Kamala Funez RN) Constipation (Acute) Peripheral neuropathy (Acute) Encounter for Medicare annual wellness exam (Acute ~08/31/21) Mild depression (Acute) Nephrotic syndrome (Acute) Hemorrhoid (Acute) Tubular adenoma of colon (Acute) Leg cramps (Acute) Constipation (Acute) Knee pain, left (Acute) COVID-19 (Acute) Prolapsed hemorrhoids (Acute) Hypercholesterolemia (Acute) Hypertension (Acute) Past Medical History Medical History Alcohol intoxication Chronic renal insufficiency Colon cancer screening COVID-19 vaccine series completed History of COVID-19 Hypercholesterolemia Hypertension Prolapsed hemorrhoids Family History Family history of problems with anesthesia: No Surgical History Surgical History H/O colonoscopy Hx of hand surgery History of Problems with Anesthesia: No Social History Social History Housing: House Are you a primary child care centre director to a significant other at home: No Do you presently have visiting nurse or other home services: No Alcohol intake: current Alcohol intake frequency: a few times a month Patient Tobacco Use Status: Former Tobacco user Tobacco use type: Cigarette e-Cigarette/Vaping Use: Never Used Use of substances other than those prescribed or required for medical reasons: No Are you DNR?: No Advance Directives: No Advance Directives Information Provided: Yes Advance Directives Date on File: 01/24/22 service: No Current occupational status: retired Cognitive needs: No Hearing needs: No Vision needs: Yes Meds Allergies Allergy/AdvReac Type Severity Reaction Status Date / Time No Known Allergies Allergy Unknown Verified 05/31/22 08:30 Home Medications Medication Instructions Recorded Confirmed Last Taken Type cholecalciferol (vitamin D3) 125 125 mcg PO DAILY 03/22/21 05/27/22 Unknown History mcg (5,000 unit) capsule losartan 100 mg tablet 100 mg PO DAILY 03/22/21 05/27/22 Unknown History simvastatin 20 mg tablet 20 mg PO DAILY 03/22/21 05/27/22 Unknown History mycophenolate mofetil 500 mg tablet 500 mg PO BID 03/01/22 05/27/22 Unknown History prednisone 10 mg tablet 15 mg PO DAILY 03/01/22 05/27/22 Unknown History Exam Exam Date and Time: May 30, 2022 0946 Height,Weight and Vital Signs: Height 5 ft 4 in Weight 60.781 kg Pertinent Lab Results Pertinent Lab Results: Laboratory Tests 05/03/22 05/03/22 19:13 19:13 WBC 6.8 Hgb 13.8 L Hct 41.7 L Plt Count 176 Sodium 133 L Potassium 3.7 Chloride 99 Carbon Dioxide 24 BUN 23 H Creatinine 1.24 Assessment and Plan Assessment Anesthesia Assessment: Chart Reviewed Final Anesthetic Review Family History of Problems with Anesthesia: No History of Problems with Anesthesia: No Documented by User: Annemarie Magaña MD 05/31/22 09:25 [facility] Past Medical History Medical History Alcohol intoxication Chronic renal insufficiency Colon cancer screening COVID-19 vaccine series completed History of COVID-19 Hypercholesterolemia Hypertension Prolapsed hemorrhoids Functional capacity: independent ambulation Surgical History Surgical History H/O colonoscopy Hx of hand surgery Social History Social History Housing: House Are you a primary child care centre director to a significant other at home: No Do you presently have visiting nurse or other home services: No Alcohol intake: current Alcohol intake frequency: a few times a month Patient Tobacco Use Status: Former Tobacco user Tobacco use type: Cigarette e-Cigarette/Vaping Use: Never Used Use of substances other than those prescribed or required for medical reasons: No Are you DNR?: No Advance Directives: No Advance Directives Information Provided: Yes Advance Directives Date on File: 01/24/22 service: No Current occupational status: retired Cognitive needs: No Hearing needs: No Vision needs: Yes Meds Allergies Allergy/AdvReac Type Severity Reaction Status Date / Time No Known Allergies Allergy Unknown Verified 05/31/22 08:30 Home Medications Medication Instructions Recorded Confirmed Last Taken Type cholecalciferol (vitamin D3) 125 125 mcg PO DAILY 03/22/21 05/27/22 Unknown History mcg (5,000 unit) capsule losartan 100 mg tablet 100 mg PO DAILY 03/22/21 05/27/22 Unknown History simvastatin 20 mg tablet 20 mg PO DAILY 03/22/21 05/27/22 Unknown History mycophenolate mofetil 500 mg tablet 500 mg PO BID 03/01/22 05/27/22 Unknown History prednisone 10 mg tablet 15 mg PO DAILY 03/01/22 05/27/22 Unknown History Exam Airway Mallampati Class: II TM Dist: >3cm Neck ROM: Full Heart: RRR Lungs: CTA Assessment and Plan Final Anesthetic Review NPO: Yes ASA Class: II Final Preanesthetic Review: No Changes in Pt Med Stat, Meds/Allgs Chart Reviewed, Consent Obtained/Reviewed and Anes Risks/Benef Reviewed Patient Risk: Intermediate Procedure Risk: Low Anesthetic Plan Anesthetic Plan: GA Disposition: Standard PACU
[2022-05-31] VITALS (10 sets, daily range): BP systolic 134–148; BP diastolic 65–77; PULSE 70–79; RESP 15–16; TEMP 36.2–36.4; O2SAT 96–100
[2022-05-31] MEDS: Lactated Ringers 1,000 ML 100 ML IVCONT (08:58)
--- NOTE | 2022-05-31 09:20 | MHC.SHP ---
Pre-Procedural Eval Section A Date of Service: 05/31/22 The patient is an INPATIENT: No Changes since office visit: No Cold of Flu in the past 2 weeks, No New Medical Problems, No Changes in Medication and No Patient answered all questions The History & Physical has been completed within 30 days and I have reviewed it.: Yes Section B Chief Complaint: hemorrhoids Allergies: Allergies Allergy/AdvReac Type Severity Reaction Status Date / Time No Known Allergies Allergy Unknown Verified 05/31/22 08:30 Plan I have reviewed the history and physical and performed a pertinent physical examination on my patient. No changes have occurred unless specified.
--- NOTE | 2022-05-31 10:47 | W.PM.OPN ---
Operative Note Operative Note Date of Service: 05/31/22 Narrative: Preop diagnosis: Internal and external hemorrhoids with prolapse Postop diagnosis: The same Procedure: Exam under anesthesia, hemorrhoidectomy x2 columns Surgeon: Jose Manuel Ochoa MD The patient is a 71-year-old male with a long history of hemorrhoids with prolapse requiring manual reduction. He wanted to proceed with hemorrhoidectomy in view of discomfort. He was aware of the risks, benefits, and alternatives Was brought to the operating room. He was placed in prone linda-knife position. The perianal area was prepped and draped in the usual sterile fashion. I infiltrated the perianal area with lidocaine 1%. Examination of the orifice revealed external hemorrhoids on both the left and right side. I inserted a Adolfo Barillas retractor. I examined the anal canal circumferentially. These hemorrhoidal columns were mix of both internal external on both sides. I applied a Sampson grasper at the hemorrhoidal column on the right anterior. I made a figure of 8 stitch at the pedicle chromic 3-0. I made incision around this hemorrhoidal column to the perianal skin using blade 15. I excised this hemorrhoidal column above the plane of sphincters along this incision using scissors. I closed the incision with a running chromic 3-0 stitch. Additional hemostatic [id number] sutures were placed I repeated the same procedure on the hemorrhoidal column on the left. I retracted this with a Sampson grasper. I made a [id number] stitch at its pedicle. I made an incision around this hemorrhoidal column to the perianal skin with a blade 15 and excised this column above the plane of sphincters along this incision. I closed the incision with a running chromic 3-0 stitch as well. Additional hemostatic sutures were placed Once hemostasis was ensured, I infiltrated the perianal area with Marcaine 0.5% for postop analgesia. The procedure was then completed. The patient tolerated procedure well. There were no complications noted. Initial and final counts sponges instruments were correct. Estimated blood loss about 25 cc The patient was extubated without difficulty and transferred to the recovery room with stable vital signs.
[2022-05-31] MEDS: oxyCODONE HCl Immed Release 5 MG TABLET PO (11:46)
== END 2022-05-31 13:12 | disposition home or self-care (01) ==
PROVIDERS: PCP Internal Medicine; Visit Provider Surgery
PROC: (CPT 46260; principal; 2022-05-31 10:20)
PROC: (CPT 46260; 2022-05-31 10:20)
DX: K64.8 Other hemorrhoids (principal); K64.4 Residual hemorrhoidal skin tags; N18.2 Chronic kidney disease, stage 2 (mild); I12.9 Hypertensive chronic kidney disease with stage 1 through stage 4 chronic kidney disease, or unspecified chronic kidney disease; E78.00 Pure hypercholesterolemia, unspecified; Z79.52 Long term (current) use of systemic steroids; Z79.899 Other long term (current) drug therapy; Z87.891 Personal history of nicotine dependence; Z86.16 Personal history of COVID-19
CPT/HCPCS: 46260; 88305; J0131; J1100; J2250; J2405; J2795; J3010

== ENCOUNTER 2022-08-13 08:08 | Outpatient (REF) | payer MEDICARE, SELFPAY ==
[2022-08-13 11:55] LABS: Creatinine Urine 78.22 mg/dL; Total Protein Urine Random < 7 mg/dL (<12)
[2022-08-13 12:02] LABS: Anion Gap 15 (12-20); Blood Urea Nitrogen 18 mg/dL (9-16); Calcium 9.3 mg/dL (8.4-10.2); Carbon Dioxide 23 mmol/L (22-29); Chloride 109 mmol/L (96-108); Estimated Glomerular Filt Rate > 60; Potassium 3.8 mmol/L (3.3-5.1); Sodium 143 mmol/L (135-145)
== END 2022-08-13 08:09 | disposition home or self-care (01) ==
LOC: HO.HMGCLDS 08:08
PROVIDERS: PCP Internal Medicine; Visit Provider Internal Medicine Hypertension Specialist
DX: N04.1 Nephrotic syndrome with focal and segmental glomerular lesions (principal)
CPT/HCPCS: 36415; 80051; 82310; 82565; 84156; 84520

== ENCOUNTER 2022-11-20 06:28 | Outpatient (REF) | payer MEDICARE, SELFPAY ==
--- NOTE | ~2022-11-20 | XR_ITS ---
EXAMINATION: XR CHEST CLINICAL INFORMATION: Chest pain COMPARISON: 11/04/2020 TECHNIQUE: 2 views of the chest were obtained. FINDINGS: The lungs are hyperinflated suggesting underlying COPD. The heart and pulmonary vessels appear normal. No infiltrates, effusions or lung masses are seen. XR/XR chest 2V IMPRESSION: Question of COPD. No acute intrathoracic disease.
[2022-11-20 11:29] LABS: MANUAL DIFF FLAG NO
[2022-11-20 11:55] LABS: Basophils Percent Auto 0.7 % (0-2); Eosinophils Absolute Auto 0.3 X10*3/uL (0.0-0.4); Eosinophils Percent Auto 5.1 % (0-4); Hematocrit 45.6 % (42.0-52.0); Hemoglobin 14.4 g/dl (14.0-18.0); Imm Gran Abs Auto 0.01 X10*3/uL (0.00-0.03); Imm Gran Pct Auto 0.2 % (0.0-0.4); Immature Retic Fraction 12.6 % (2.3-13.4); Lymphocytes Absolute Auto 1.7 X10*3/uL (1.2-4.9); Mean Corpuscular HGB Conc 31.6 g/dl (31.0-36.0); Mean Corpuscular Volume 98.3 fL (80.0-98.0); Monocytes Absolute Auto 0.6 X10*3/uL (0.1-1.2); Monocytes Percent Auto 9.7 % (2-11); Neutrophils Absolute Auto 3.1 x10*3/uL (2.0-8.3); Neutrophils Percent Auto 54.3 % (45-73); Platelet Count 224 X10*3/uL (160-400); Red Blood Count 4.64 X10*6/uL (4.60-5.80); Red Cell Distribution Width 12.8 % (11.0-16.0); Retic HGB Equivalent 35.6 pg (30.0-35.0); Reticulocyte Percent 1.7 % (0.5-1.8); White Blood Count 5.7 X10*3/uL (4.8-10.8)
[2022-11-20 12:23] LABS: Alanine Aminotransferase 13 U/L (0-40); Albumin Level 4.1 g/dL (3.5-5.0); Alkaline Phosphatase 87 U/L (39-117); Anion Gap 12 (12-20); Aspartate Amino Transferase 21 U/L (5-37); Blood Urea Nitrogen 19 mg/dL (9-16); Calcium 9.4 mg/dL (8.4-10.2); Carbon Dioxide 27 mmol/L (22-29); Chloride 108 mmol/L (96-108); Cholesterol 203 mg/dL; Estimated Glomerular Filt Rate > 60; Glucose Random 86 mg/dL (60-115); HDL Cholesterol 69 mg/dL; Iron 135 mcg/dL (45-160); LDL Cholesterol Calculated 116 mg/dl; Percent Iron Saturation 54 % (15-50); Potassium 4.1 mmol/L (3.3-5.1); Sodium 143 mmol/L (135-145); Total Iron Binding Capacity 251 mcg/dL (228-428); Total Protein 7.1 g/dL (6.5-8.0); Triglycerides 92 mg/dL; Unsaturated Iron Binding 116 ug/dL
[2022-11-20 12:35] LABS: Ferritin 159 ng/mL (20-250); Free T4 (Free Thyroxine) 1.07 ng/dL (0.71-1.85); Thyroid Stimulating Hormone 1.57 uIU/mL (0.32-4.0)
[2022-11-20 12:53] LABS: Folate 10.3 ng/mL (> or = 4.0); Vitamin B12 682 pg/mL (200-900)
== END 2022-11-20 06:29 | disposition home or self-care (01) ==
LOC: HO.HMGCLDS 06:28
PROVIDERS: PCP Internal Medicine; Visit Provider Internal Medicine
DX: E78.00 Pure hypercholesterolemia, unspecified (principal); R07.9 Chest pain, unspecified; D64.9 Anemia, unspecified
CPT/HCPCS: 36415; 71046; 80053; 80061; 82607; 82728; 82746; 83540; 84439; 84443; 85025; 85045

== ENCOUNTER 2022-12-18 07:44 | Outpatient (REF) | payer MEDICARE, SELFPAY ==
[2022-12-18 11:52] LABS: Anion Gap 14 (12-20); Blood Urea Nitrogen 20 mg/dL (9-16); Calcium 9.7 mg/dL (8.4-10.2); Carbon Dioxide 24 mmol/L (22-29); Chloride 108 mmol/L (96-108); Estimated Glomerular Filt Rate > 60; Potassium 3.9 mmol/L (3.3-5.1); Sodium 142 mmol/L (135-145)
[2022-12-18 13:30] LABS: Creatinine Urine 41.88 mg/dL; Total Protein Urine Random < 7 mg/dL (<12)
== END 2022-12-18 07:45 | disposition home or self-care (01) ==
LOC: HO.HMGCLDS 07:44
PROVIDERS: PCP Internal Medicine; Visit Provider Internal Medicine Hypertension Specialist
DX: N04.1 Nephrotic syndrome with focal and segmental glomerular lesions (principal)
CPT/HCPCS: 36415; 80051; 82310; 82565; 84156; 84520

== ENCOUNTER 2023-05-01 16:09 | Outpatient (REF) | payer MEDICARE, SELFPAY ==
[2023-05-01 16:51] LABS: Hematocrit 40.8 % (42.0-52.0); Hemoglobin 13.6 g/dl (14.0-18.0); Mean Corpuscular HGB Conc 33.3 g/dl (31.0-36.0); Mean Corpuscular Hemoglobin 31.3 pg (27.0-33.0); Mean Platelet Volume 10.4 fL (9.4-12.4); Platelet Count 193 X10*3/uL (160-400); Red Blood Count 4.34 X10*6/uL (4.60-5.80); Red Cell Distribution Width 12.1 % (11.0-16.0)
[2023-05-01 16:59] LABS: Appearance Urine Clear; Color Urine Yellow; Glucose Urine UA Negative (Negative); Leukocyte Esterase Urine Negative (Negative); Nitrite Urine Negative (Negative); PH 7.5 (5.0-9.0); Specific Gravity - Urine 1.015 (1.005-1.025); Urine Blood Negative (Negative); Urine Ketones Negative (Negative); Urine Protein Negative (Neg-Trace)
[2023-05-01 17:02] LABS: Bacteria Urine None Seen (None Seen); Hyaline Casts Urine 0-2 /LPF (0-2); RBC Urine 0-2 /HPF (0-2); Squamous Epithelial Cell Urine 0-2 /HPF (0-2); WBC Urine 0-5 /HPF (0-5)
[2023-05-01 17:29] LABS: Anion Gap 9 (12-20); Blood Urea Nitrogen 18 mg/dL (9-16); Carbon Dioxide 26 mmol/L (22-29); Chloride 110 mmol/L (96-108); Estimated Glomerular Filt Rate > 60; Glucose Random 87 mg/dL (60-115); Potassium 4.1 mmol/L (3.3-5.1); Sodium 141 mmol/L (135-145)
[2023-05-01 17:42] LABS: Creatinine Urine 87.71 mg/dL; Total Protein Urine Random < 7 mg/dL (<12)
== END 2023-05-01 16:10 | disposition home or self-care (01) ==
LOC: HO.LAB 16:09
PROVIDERS: PCP Internal Medicine; Visit Provider Internal Medicine Hypertension Specialist
DX: N04.1 Nephrotic syndrome with focal and segmental glomerular lesions (principal); N18.2 Chronic kidney disease, stage 2 (mild)
CPT/HCPCS: 36415; 80048; 81001; 84156; 85027

== ENCOUNTER 2023-08-07 15:12 | Outpatient (REF) | payer MEDICARE, SELFPAY ==
[2023-08-07 18:40] LABS: Creatinine Urine 26.55 mg/dL; Total Protein Urine Random < 7 mg/dL (<12)
== END 2023-08-07 15:13 | disposition home or self-care (01) ==
LOC: HO.LAB 15:12
PROVIDERS: Visit Provider Internal Medicine Hypertension Specialist
DX: N04.1 Nephrotic syndrome with focal and segmental glomerular lesions (principal)
CPT/HCPCS: 82570; 84156

== ENCOUNTER 2023-08-27 08:48 | Outpatient (REF) | payer MEDICARE, SELFPAY | END 2023-08-27 08:49 | disposition home or self-care (01) | LOC: HO.SH 08:48 | PROVIDERS: Visit Provider Internal Medicine | DX: Z01.118 Encounter for examination of ears and hearing with other abnormal findings (principal); H91.90 Unspecified hearing loss, unspecified ear | CPT/HCPCS: 92557; 92567 ==

== ENCOUNTER 2023-08-28 12:52 | Outpatient (AMB) | payer MEDICARE, SELFPAY ==
[2023-08-28 12:54] VITALS: BP 154/82; PULSE 61; O2SAT 98; BMI 22.5
--- NOTE | 2023-08-28 12:54 | A.OFFPC_ITS ---
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 Required: No Accompanied by: Self / Same As Patient Allergies No Known Allergies Allergy (Unknown, Verified 08/28/23 12:58) Tobacco use date assessed: 11/26/22 Fall risk assessment: No Falls in past year Last assessed Fall Risk: 08/28/23 Dental Screening Dental Screen Date: 08/28/23 Did you have a dental visit in the last 12 months?: No Did you have a dental problem in the last 6 months where you did not have access to dental care?: No Was dental information given to patient?: Patient has dentist HPI 6 month f/u HPI Details 73-year-old male with a history of nephr otic syndrome hypertension hypercholesterolemia coming in for follow-up. Last seen in February 2023 for physical exam. Patient is up-to-date with colonoscopy January 2022. Review of the notes 2022 seen by Nephrology renal function is stable on mycophenolate for 6 months and prednisone continuing with losartan, no n no v no fevrs , no cp, no b/b sx PFSH Medical History (Updated 08/28/23 @ 13:22 by Edilberto Scherer MD) Chest pain History of COVID-19 Prolapsed hemorrhoids Hemorrhoid COVID-19 vaccine series completed Chronic renal insufficiency Encounter for Medicare annual wellness exam (~08/31/21) Colon cancer screening Hypercholesterolemia Alcohol intoxication Hypertension Surgical History History of hemorrhoidectomy H/O colonoscopy Hx of hand surgery Social History Housing: House Are you a primary care transport nurse to a significant other at home: No Do you presently have visiting nurse or other home services: No Alcohol intake: current Alcohol intake frequency: a few times a month Patient Tobacco Use Status: Former Tobacco user Tobacco use type: Cigarette Years Smoked: quit 1986 e-Cigarette/Vaping Use: Never Used Advance Directives Date on File: 01/24/22 service: No Current occupational status: retired Cognitive needs: No Hearing needs: No Vision needs: Yes Questionnaire Thrive Questionnaire Date Thrive assessed: 11/26/22 KHADRA-7 AMB Questionnaire KHADRA-7 Date KHADRA - 7 assessed: 11/26/22 Source: Developed by Drs. Paul Moreno, Leonor Vo, Lawrence Degroot and colleagues, with an educational cyn from [employer]. Physical exam (Primary Care) Vital Signs: Last Vital Signs Pulse 61 08/28/23 12:54 BP 154/82 H 08/28/23 12:54 Pulse Ox 98 08/28/23 12:54 Oxygen Delivery Method Room Air 08/28/23 12:54 BMI result Body Mass Index 22.5 Tobacco/Smoking Status: Tobacco use Status Tobacco use date assessed 11/26/22 08/28/23 13:02 Patient Tobacco Use Status Former Tobacco user 08/28/23 13:02 Tobacco use type Cigarette 08/28/23 13:02 e-Cigarette/Vaping Use Never Used 08/28/23 13:02 Thrive Assessment: Date of Thrive Assessment Date Thrive assessed 11/26/22 08/28/23 13:02 Const General: alert; No acute distress Eyes Conjunctivae: conjunctivae normal Resp Auscultation: clear to auscultation bilaterally Cardio Rate: regular rate Rhythm: regular rhythm GI Inspection: Yes normal to inspection Extrem General: Yes normal to inspection and No edema Office Procedures Flu Questionnaire Does the patient have a severe egg allergy?: No Does the patient have severe life threatening allergies?: No Does the patient have a fever or illness today?: No Has the patient ever had Guillain-Clayton Syndrome?: No Has the patient ever had any past reaction to a flu shot?: No Immunizations flu vacc [id number] 6mos up(PF) 60 mcg(15 mcgx4)/0.5 mL IM syringe Performing Provider: Edilberto Scherer MD [facility] [place] [facility] Administered by: ANDRESSA Matos on 08/28/23 13:28 Dose Route Admin Location Dispensed Lot Number Expiration Date NDC Food Taster 0.5 mL IM Left Deltoid 0.5 mL [id number] 05/09/24 [id number] [employer] VIS Given Date VIS Provided VIS Publication Date 08/28/23 Single Vaccine 21 Eligibility Eligibility Date Funding Source Not [facility] [place] Eligible 08/28/23 Private Assessment and Plan Assessment & Plan (1) 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 not on any steroid (2) Hypertension: Code(s): I10 - Essential (primary) hypertension Qualifiers: Hypertension type: primary hypertension Qualified Code(s): I10 - Essential (primary) hypertension Plan: Continue with blood pressure medication. Decrease salt intake and exercise patient is presently on losartan 100 mg once a day. noted elevated BP - advsied to monitor at home and record (3) Hypercholesterolemia: Code(s): E78.00 - Pure hypercholesterolemia, unspecified Plan: Avoid fried foods, chicken skin, eggs, butter margarine, pastries and meat. Be it pork or beef they have a lot of cholesterol LDL goal of less than 130 and triglyceride of less than 150. Patient on simvastatin 20 mg once a day last bl ood work was done in November 2022. (4) Asymmetrical hearing loss: Code(s): H91.8X3 - Other specified hearing loss, bilateral (5) Peripheral vascular disease: Code(s): I73.9 - Peripheral vascular disease, unspecified Orders: Orders Comprehensive Met. Panel 3 Months E78.00 - Pure hypercholesterolemia, unspecified Free T4 (Free Thyroxine) 3 Months E78.00 - Pure hypercholesterolemia, unspecified Ferritin 3 Months E78.00 - Pure hypercholesterolemia, unspecified IRON PROFILE 3 Months E78.00 - Pure hypercholesterolemia, unspecified Thyroid Stimulating Hormone 3 Months E78.00 - Pure hypercholesterolemia, unspecified UA w Microscopic 3 Months E78.00 - Pure hypercholesterolemia, unspecified Complete Blood Count Auto Diff 3 Months E78.00 - Pure hypercholesterolemia, unspecified Vitamin B12 and Folate 3 Months E78.00 - Pure hypercholesterolemia, unspecified Reticulocyte Count 3 Months E78.00 - Pure hypercholesterolemia, unspecified Lipid Panel 3 Months E78.00 - Pure hypercholesterolemia, unspecified Influenza [id number] Immunization Today Z23 - Encounter for immunization Referrals Ear/Nose/Throat Referral H91.8X3 - Other specified hearing loss, bilateral Coding Level of Care Code Est Pt Level 4 (04606) Diagnoses Nephrotic syndrome N04.9 Primary hypertension I10 Hypertension type: primary hypertension Hypercholesterolemia E78.00 Asymmetrical hearing loss H91.8X3 Peripheral vascular disease I73.9
== END 2023-08-28 13:27 | disposition home or self-care (01) ==
PROVIDERS: Visit Provider Internal Medicine
DX: N04.9 Nephrotic syndrome with unspecified morphologic changes (principal); I73.9 Peripheral vascular disease, unspecified; I10 Essential (primary) hypertension; E78.00 Pure hypercholesterolemia, unspecified; H91.8X3 Other specified hearing loss, bilateral; Z23 Encounter for immunization
CPT/HCPCS: 90471; 90686; 99214

== ENCOUNTER 2023-12-01 07:16 | Outpatient (REF) | payer MEDICARE, SELFPAY ==
[2023-12-01 11:27] LABS: Appearance Urine Clear; Color Urine Yellow; Glucose Urine UA Negative (Negative); Leukocyte Esterase Urine Trace (Negative); Nitrite Urine Negative (Negative); PH 5.5 (5.0-9.0); Specific Gravity - Urine 1.015 (1.005-1.025); UMIC TRIGGER UA YES; Urine Blood Negative (Negative); Urine Ketones Negative (Negative); Urine Protein Negative (Neg-Trace)
[2023-12-01 11:30] LABS: Bacteria Urine None Seen (None Seen); Hyaline Casts Urine 0-2 /LPF (0-2); RBC Urine 0-2 /HPF (0-2); Squamous Epithelial Cell Urine 0-2 /HPF (0-2); WBC Urine 0-5 /HPF (0-5)
[2023-12-01 11:41] LABS: MANUAL DIFF FLAG NO
[2023-12-01 12:00] LABS: Basophils Percent Auto 0.9 % (0-2); Eosinophils Absolute Auto 0.3 X10*3/uL (0.0-0.4); Eosinophils Percent Auto 5.6 % (0-4); Hematocrit 45.9 % (42.0-52.0); Hemoglobin 15.1 g/dl (14.0-18.0); Imm Gran Abs Auto 0.01 X10*3/uL (0.00-0.03); Imm Gran Pct Auto 0.2 % (0.0-0.4); Immature Retic Fraction 12.3 % (2.3-13.4); Lymphocytes Absolute Auto 1.4 X10*3/uL (1.2-4.9); Lymphocytes Percent Auto 30.6 % (20-40); Mean Corpuscular HGB Conc 32.9 g/dl (31.0-36.0); Mean Corpuscular Hemoglobin 32.3 pg (27.0-33.0); Mean Corpuscular Volume 98.1 fL (80.0-98.0); Mean Platelet Volume 11.2 fL (9.4-12.4); Monocytes Absolute Auto 0.3 X10*3/uL (0.1-1.2); Monocytes Percent Auto 7.3 % (2-11); Neutrophils Absolute Auto 2.6 x10*3/uL (2.0-8.3); Neutrophils Percent Auto 55.4 % (45-73); Platelet Count 192 X10*3/uL (160-400); Red Blood Count 4.68 X10*6/uL (4.60-5.80); Red Cell Distribution Width 12.4 % (11.0-16.0); Retic HGB Equivalent 36.8 pg (30.0-35.0); Reticulocyte Percent 1.6 % (0.5-1.8); Reticulocytes Absolute 0.074 X10*6/uL (0.026-0.095); White Blood Count 4.6 X10*3/uL (4.8-10.8)
[2023-12-01 12:30] LABS: Alanine Aminotransferase 16 U/L (0-40); Albumin Level 4.1 g/dL (3.5-5.0); Alkaline Phosphatase 79 U/L (39-117); Anion Gap 12 (12-20); Aspartate Amino Transferase 23 U/L (5-37); Bilirubin Total 0.7 mg/dL (0.0-1.0); Blood Urea Nitrogen 18 mg/dL (9-16); Carbon Dioxide 28 mmol/L (22-29); Chloride 107 mmol/L (96-108); Cholesterol 194 mg/dL (<200); Estimated Glomerular Filt Rate > 60; Ferritin 265 ng/mL (20-250); Free T4 (Free Thyroxine) 0.96 ng/dL (0.71-1.85); Glucose Random 82 mg/dL (60-115); HDL Cholesterol 70 mg/dL (>40); Iron 136 mcg/dL (45-160); LDL Cholesterol Calculated 112 mg/dL (<100); Percent Iron Saturation 53 % (15-50); Potassium 3.9 mmol/L (3.3-5.1); Sodium 143 mmol/L (135-145); Thyroid Stimulating Hormone 2.31 uIU/mL (0.32-4.0); Total Iron Binding Capacity 255 mcg/dL (228-428); Total Protein 8.1 g/dL (6.5-8.0); Triglycerides 62 mg/dL (<150); Unsaturated Iron Binding 119 ug/dL
[2023-12-01 12:49] LABS: Folate 9.7 ng/mL (> or = 4.0); Vitamin B12 954 pg/mL (200-900)
== END 2023-12-01 07:17 | disposition home or self-care (01) ==
LOC: HO.HMGCLDS 07:16
PROVIDERS: PCP Internal Medicine; Visit Provider Internal Medicine
DX: E78.00 Pure hypercholesterolemia, unspecified (principal)
CPT/HCPCS: 36415; 80053; 80061; 81001; 82607; 82728; 82746; 83540; 84439; 84443; 85025; 85045

== ENCOUNTER 2023-12-11 13:52 | Outpatient (AMB) | payer MEDICARE, SELFPAY ==
[2023-12-11 14:03] VITALS: BP 148/82; PULSE 76; O2SAT 97; BMI 22.3
--- NOTE | 2023-12-11 14:03 | A.OFFPC_ITS ---
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 Last seen in August 2023. Patient is up-to-date with colonoscopy January 2022 on with tubular adenoma [facility] Medical History (Updated 08/28/23 @ 13:22 by Edilberto Scherer MD) Chest pain History of COVID-19 Prolapsed hemorrhoids Hemorrhoid COVID-19 vaccine series completed Chronic renal insufficiency Encounter for Medicare annual wellness exam (~08/31/21) Colon cancer screening Hypercholesterolemia Alcohol intoxication Hypertension Surgical History History of hemorrhoidectomy H/O colonoscopy Hx of hand surgery Social History Housing: House Are you a primary healthcare analyst to a significant other at home: No Do you presently have visiting nurse or other home services: No Alcohol intake: current Alcohol intake frequency: a few times a month Patient Tobacco Use Status: Former Tobacco user Tobacco use type: Cigarette Years Smoked: quit 1986 e-Cigarette/Vaping Use: Never Used Advance Directives Date on File: 01/24/22 service: No Current occupational status: retired Cognitive needs: No Hearing needs: No Vision needs: Yes Questionnaire Thrive Questionnaire Date Thrive assessed: 11/26/22 AUDIT C Alcohol Use Questionnaire (AUDIT-C) 1. How often do you have a drink containing alcohol?: 2-4 times a month 2. How many drinks containing alcohol do you have on a typical day when you are drinking?: 3 or 4 Total Score: 3 Score Reviewed/Action Taken: Yes KHADRA-7 AMB Questionnaire KHADRA-7 Date KHADRA - 7 assessed: 12/11/23 Source: Developed by Drs. Paul Moreno, Leonor Vo, Lawrence Degroot and colleagues, with an educational cyn from [employer]. Physical exam (Primary Care) Vital Signs: Last Vital Signs Pulse 76 12/11/23 14:03 BP 148/82 H 12/11/23 14:03 Pulse Ox 97 12/11/23 14:03 Oxygen Delivery Method Room Air 12/11/23 14:03 BMI result Body Mass Index 22.3 Tobacco/Smoking Status: Tobacco use Status Tobacco use date assessed 12/11/23 12/11/23 14:03 Patient Tobacco Use Status Former Tobacco user 12/11/23 14:03 Tobacco use type Cigarette 12/11/23 14:03 e-Cigarette/Vaping Use Never Used 12/11/23 14:03 Thrive Assessment: Date of Thrive Assessment Date Thrive assessed 11/26/22 12/11/23 14:03 Const General: alert; No acute distress Eyes Conjunctivae: conjunctivae normal Resp Auscultation: clear to auscultation bilaterally Cardio Rate: regular rate Rhythm: regular rhythm GI Inspection: Yes normal to inspection Extrem General: Yes normal to inspection and No edema Immunizations tetanus-diphtheria toxoids-Td 2 Lf unit-2 Lf unit/0.5 mL IM suspension Performing Provider: Edilberto Scherer MD Performing Location: [facility] Administered by: ANDRESSA Lozada on 12/11/23 15:11 Dose Route Admin Location Dispensed Lot Number Expiration Date NDC Administrative Library Assistant 0.5 mL IM Left Deltoid 0.5 mL [id number] 03/15/24 [address]-7 [employer] VIS Given Date VIS Provided VIS Publication Date 12/11/23 Single Vaccine 21 Eligibility Eligibility Date Funding Source Not VFC Eligible 12/11/23 State funds Assessment and Plan Assessment & Plan (1) Hypertension: Code(s): I10 - Essential (primary) hypertension Qualifiers: Hypertension type: primary hypertension Qualified Code(s): I10 - E ssential (primary) hypertension Plan: Continue with blood pressure medication. Decrease salt intake and exercise presently on losartan 100 mg once a day (2) Hypercholesterolemia: Code(s): E78.00 - Pure hypercholesterolemia, unspecified Plan: Avoid fried foods, chicken skin, eggs, butter margarine, pastries and meat. Be it pork or beef they have a lot of cholesterol LDL goal of less than 130 and triglyceride of less than 150. 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 Blood work normal (4) Peripheral vascular disease: Code(s): I73.9 - Peripheral vascular disease, unspecified Plan: When sitting down elevate the legs, exercise, and support stockings Medications: New amlodipine 2.5 mg PO DAILY 30 days 30 tabs 2RF I10 - Essential (primary) hypertension Coding Level of Care Code Est Pt Level 4 (69422) Diagnoses Primary hypertension I10 Hypertension type: primary hypertension Hypercholesterolemia E78.00 Nephrotic syndrome N04.9 Peripheral vascular disease I73.9
== END 2023-12-11 14:55 | disposition home or self-care (01) ==
PROVIDERS: PCP Internal Medicine; Visit Provider Internal Medicine
DX: I10 Essential (primary) hypertension (principal); E78.00 Pure hypercholesterolemia, unspecified; N04.9 Nephrotic syndrome with unspecified morphologic changes; I73.9 Peripheral vascular disease, unspecified; Z23 Encounter for immunization
CPT/HCPCS: 90471; 90714; 99214

== ENCOUNTER 2024-01-15 11:27 | Outpatient (AMB) | payer MEDICARE, SELFPAY ==
[2024-01-15 11:34] VITALS: BP 136/64; PULSE 61; O2SAT 96; BMI 22.5
--- NOTE | 2024-01-15 11:34 | HO.NEPHOV ---
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/o 3 episodes of relapse h/o HTN and dyslipidemia No new issues today [facility] Medical History (Updated 01/15/24 @ 11:46 by Jaylan Quintero MD) Chest pain History of COVID-19 Prolapsed hemorrhoids Hemorrhoid COVID-19 vaccine series completed Chronic renal insufficiency Encounter for Medicare annual wellness exam (~08/31/21) Colon cancer screening Hypercholesterolemia Alcohol intoxication Hypertension Surgical History History of hemorrhoidectomy H/O colonoscopy Hx of hand surgery Social History Housing: House Are you a primary early breastfeeding care specialist to a significant other at home: No Do you presently have visiting nurse or other home services: No Alcohol intake: current Alcohol intake frequency: a few times a month Patient Tobacco Use Status: Former Tobacco user Tobacco use type: Cigarette Years Smoked: quit 1986 e-Cigarette/Vaping Use: Never Used Advance Directives Date on File: 01/24/22 service: No Current occupational status: retired Cognitive needs: No Hearing needs: No Vision needs: Yes Vital Signs 01/15/24 11:34 Height 5 ft 4 in Weight 131 lb BMI 22.5 BP 136/64 Blood Pressure Location Lt brachial Position Sitting Pulse 61 Pulse Source Pulse Oximeter Pulse Oximetry (%) 96 Oxygen Delivery Method Room Air Physical Exam Vital Signs: Last Vital Signs Pulse 61 01/15/24 11:34 BP 136/64 01/15/24 11:34 Pulse Ox 96 01/15/24 11:34 Oxygen Delivery Method Room Air 01/15/24 11:34 BMI result Body Mass Index 22.5 Const General: comfortable Nutritional Appearance: well nourished Orientation/consciousness: patient oriented x3 HEENT Head: No normal to inspection Mouth: moist mucous membranes Neck Neck: Yes supple and Yes no JVD Resp Auscultation: clear to auscultation bilaterally, no rales and rub present Cardio Jugular venous distension: no JVD Palpation: no palpable S3 and no palpable S4 Heart sounds: no rubs GI Palpation (GI): Soft to palpation and nontender Percussion: No Fluid wave present General: Yes no CVA tenderness Back/Spine/Pelvis Back: no CVA tenderness Skin General skin exam: no rashes or lesions noted Neuro General: patient oriented x3 Extrem General: Yes no pedal edema and No clubbing Assessment & Plan Assessment & Plan (1) CKD (chronic kidney disease): Code(s): N18.9 - Chronic kidney disease, unspecified (2) FSGS (focal segmental glomerulosclerosis): Code(s): N05.1 - Unspecified nephritic syndrome with focal and segmental glomerular lesions (3) Hypertension: Code(s): I10 - Essential (primary) hypertension Qualifiers: Hypertension type: primary hypertension Qualified Code(s): I10 - Essential (primary) hypertension Plan 73 yr old man with FSGS in remission NO significant proteinuria Creatinine is stable Continue Mycophenalate Volume status is normal BP well controlled Continue with ARB for protection Avoid nephrotoxins including NSAIDS Orders: Orders Creatinine Urine 6 Months N05.9 - Unspecified nephritic syndrome with unspecified morphologic changes, N18.9 - Chronic kidney disease, unspecified Total Protein Urine Random 6 Months N18.9 - Chronic kidney disease, unspecified UA and rflx microscopic 6 Months N18.9 - Chronic kidney disease, unspecified Comprehensive Met. Panel 6 Months N18.9 - Chronic kidney disease, unspecified Coding Level of Care Code Est Pt Level 4 (26610) Diagnoses CKD (chronic kidney disease) N18.9 FSGS (focal segmental glomerulosclerosis) N05.1 Primary hypertension I10 Hypertension type: primary hypertension Results Reviewed Nephrology Results: Hgb 15.1 g/dl (14.0-18.0) 12/01/23 WBC 4.6 X10*3/uL (4.8-10.8) L 12/01/23 Plt Count 192 X10*3/uL (160-400) 12/01/23 Sodium 143 mmol/L (135-145) 12/01/23 Potassium 3.9 mmol/L (3.3-5.1) 12/01/23 Chloride 107 mmol/L (96-108) 12/01/23 Carbon Dioxide 28 mmol/L (22-29) 12/01/23 BUN 18 mg/dL (9-16) H 12/01/23 Creatinine 0.85 mg/dL (0.5-1.4) 12/01/23 Calcium 10.0 mg/dL (8.4-10.2) 12/01/23 Urine Protein Negative mg/dL (Neg-Trace) 12/01/23 Urine Creatinine 26.55 mg/dL 08/07/23 Protein/Creatinin Ratio TNP 08/07/23
== END 2024-01-15 11:51 | disposition home or self-care (01) ==
PROVIDERS: PCP Internal Medicine; Visit Provider Internal Medicine Hypertension Specialist
DX: I10 Essential (primary) hypertension (principal); N04.1 Nephrotic syndrome with focal and segmental glomerular lesions; Z79.60 Long term (current) use of unspecified immunomodulators and immunosuppressants
CPT/HCPCS: 99214

== ENCOUNTER → 2024-01-15 11:27 | Outpatient (BNVA) | payer MEDICARE, SELFPAY | PROVIDERS: PCP Internal Medicine; Visit Provider Internal Medicine Hypertension Specialist | DX: I12.9 Hypertensive chronic kidney disease with stage 1 through stage 4 chronic kidney disease, or unspecified chronic kidney disease (principal); N18.9 Chronic kidney disease, unspecified; N05.1 Unspecified nephritic syndrome with focal and segmental glomerular lesions; Z79.60 Long term (current) use of unspecified immunomodulators and immunosuppressants | CPT/HCPCS: 99212 ==

== ENCOUNTER 2024-03-01 16:54 | Outpatient (AMB) | payer MEDICARE, SELFPAY ==
[2024-03-01 16:58] VITALS: BP 130/62; PULSE 68; O2SAT 98; BMI 23.9
--- NOTE | 2024-03-01 16:58 | A.OFFPC_ITS ---
Vital Signs 03/01/24 16:58 Height 5 ft 2.5 in Weight 133 lb BMI 23.9 BP 130/62 Blood Pressure Location Lt brachial Position Sitting Pulse 68 Pulse Source Pulse Oximeter Pulse Oximetry (%) 98 Oxygen Delivery Method Room Air Intake Visit Reasons: Hypertension Dietary Manager: Not Required per policy Accompanied by: Self / Same As Patient Allergies No Known Allergies Allergy (Unknown, Verified 03/01/24 16:58) Tobacco use date assessed: 03/01/24 Fall risk assessment: No Falls in past year Last assessed Fall Risk: 03/01/24 Dental Screening Dental Screen Date: 03/01/24 Did you have a dental visit in the last 12 months?: Yes Did you have a dental problem in the last 6 months where you did not have access to dental care?: No Was dental information given to patient?: Patient has dentist HPI Hypertension HPI Details 73-year-old male with a history of hyper tension hypercholesterolemia nephrotic syndrome and peripheral vascular disease last seen in December 2023. Patient is up-to-date with colonoscopy. Review of the notes does see Nephrology FSGS chronic kidney disease in remission continue mycophenolate. increase oral fluids, exercise and keep moving [facility] Medical History (Updated 01/15/24 @ 11:46 by Jaylan Quintero MD) Chest pain History of COVID-19 Prolapsed hemorrhoids Hemorrhoid COVID-19 vaccine series completed Chronic renal insufficiency Encounter for Medicare annual wellness exam (~08/31/21) Colon cancer screening Hypercholesterolemia Alcohol intoxication Hypertension Surgical History History of hemorrhoidectomy H/O colonoscopy Hx of hand surgery Social History Housing: House Are you a primary childcare provider to a significant other at home: No Do you presently have visiting nurse or other home services: No Alcohol intake: current Alcohol intake frequency: a few times a month Patient Tobacco Use Status: Former Tobacco user Tobacco use type: Cigarette Years Smoked: quit 1986 e-Cigarette/Vaping Use: Never Used Advance Directives Date on File: 01/24/22 service: No Current occupational status: retired Cognitive needs: No Hearing needs: No Vision needs: Yes Questionnaire PHQ-9 Over the last 2 weeks, how often have you been bothered by any of the following problems? 1. Little interest or pleasure in doing things: not at all 2. Feeling down, depressed, or hopeless: not at all 3. Trouble falling or staying asleep, or sleeping too much: not at all 4. Feeling tired or having little energy: not at all 5. Poor appetite or overeating: not at all 6. Feeling bad about yourself - or that you are a failure or have let yourself or your family down: not at all 7. Trouble concentrating on things, such as reading the newspaper or watching television: not at all 8. Moving or speaking so slowly that other people could have noticed. Or the opposite - being so fidgety or restless that you have been moving around a lot more than usual: not at all 9. Thoughts that you would be better off or of hurting yourself in some way : not at all Total score: 0 Depression Screening Interpretation: Negative Depression Screening Done: Yes Source: Developed by Drs. Paul Moreno, Leonor Vo, Lawrence Degroot and colleagues, with an educational cyn from [employer]. Thrive Questionnaire Date Thrive assessed: 03/01/24 I am a: Patient What is your living situation today?: I have a steady place to live Within the past 12 months, did the food you bought not last and you didn't have the money to get more?: Never true Within the past 12 months, did you worry whether your food would run out before you got money to buy more?: Never true Do you have trouble paying for medicines?: No Do you have trouble getting transportation to medical appointments?: No Do you have trouble paying your heating and electricity bill?: No Do you have trouble taking care of your child, family member or friend?: No Do you have trouble with day-to-day activities such as bathing, preparing meals, shopping, managing finances, etc.?: No Are you currently unemployed and looking for a job?: No Are you interested in more education?: No Please select the resources that you would like help with: None THRIVE Score: 0 AUDIT C Alcohol Use Questionnaire (AUDIT-C) 1. How often do you have a drink containing alcohol?: 2-4 times a month 2. How many drinks containing alcohol do you have on a typical day when you are drinking?: 3 or 4 Total Score: 3 Score Reviewed/Action Taken: Yes KHADRA-7 AMB Questionnaire KHADRA-7 Date KHADRA - 7 assessed: 03/01/24 Feeling nervous, anxious, or on edge: 0 = Not at all Not being able to stop or control worryin = Not at all Worrying too much about different things: 0 = Not at all Trouble relaxin = Not at all Being so restless that it is hard to sit still: 0 = Not at all Becoming easily annoyed or irritable: 0 = Not at all Feeling afraid as if something awful might happen: 0 = Not at all Total KHADRA-7 score (0-4 normal; 5-9 mild; 10-14 moderate; 15-21 severe): 0 Source: Developed by Drs. Paul Moreno, Leonor Vo, Lawrence Degroot and colleagues, with an educational cyn from [employer]. Physical exam (Primary Care) Vital Signs: Last Vital Signs Pulse 68 03/01/24 16:58 BP 130/62 03/01/24 16:58 Pulse Ox 98 03/01/24 16:58 Oxygen Delivery Method Room Air 03/01/24 16:58 BMI result Body Mass Index 23.9 Tobacco/Smoking Status: Tobacco use Status Tobacco use date assessed 03/01/24 03/01/24 17:07 Patient Tobacco Use Status Former Tobacco user 03/01/24 16:59 Tobacco use type Cigarette 03/01/24 16:59 e-Cigarette/Vaping Use Never Used 03/01/24 16:59 PHQ-9: PHQ-9 Score PHQ-9: Total score 0 03/01/24 17:25 Depression Screening Interpretation: Negative Thrive Assessment: Date of Thrive Assessment Date Thrive assessed 03/01/24 03/01/24 16:59 Const General: alert; No acute distress Eyes Conjunctivae: conjunctivae normal Resp Auscultation: clear to auscultation bilaterally Cardio Rate: regular rate Rhythm: regular rhythm GI Inspection: Yes normal to inspection Extrem General: Yes normal to inspection and No edema Assessment and Plan Assessment & Plan (1) CKD (chronic kidney disease): Code(s): N18.9 - Chronic kidney disease, unspecified Plan: Patient being followed up by Nephrology on mycophenolate for FSGS which is in remission. (2) Hypertension: Code(s): I10 - Essential (primary) hypertension Qualifiers: Hypertension type: primary hypertension Qualified Code(s): I10 - Essential (primary) hypertension Plan: Continue with blood pressure medication. Decrease salt intake and exercise presently on amlodipine 2.5 mg once a day and losartan 100 mg once a day (3) Hypercholesterolemia: Code(s): E78.00 - Pure hypercholesterolemia, unspecified Plan: Avoid fried foods, chicken skin, eggs, butter margarine, pastries and meat. Be it pork or beef they have a lot of cholesterol on simvastatin 20 mg once a day Coding Level of Care Code Est Pt Level 4 (54222) Diagnoses CKD (chronic kidney disease) N18.9 Primary hypertension I10 Hypertension type: primary hypertension Hypercholesterolemia E78.00 Additional Codes PHQ-9 - 23664 - PHQ-9 Billing: ([id number])
== END 2024-03-01 17:38 | disposition home or self-care (01) ==
PROVIDERS: PCP Internal Medicine; Visit Provider Internal Medicine
DX: I12.9 Hypertensive chronic kidney disease with stage 1 through stage 4 chronic kidney disease, or unspecified chronic kidney disease (principal); N18.9 Chronic kidney disease, unspecified; E78.00 Pure hypercholesterolemia, unspecified
CPT/HCPCS: 99214

== ENCOUNTER 2024-07-19 06:46 | Outpatient (REF) | payer MEDICARE, SELFPAY ==
[2024-07-19 10:06] LABS: Appearance Urine Clear; Color Urine Yellow; Glucose Urine UA Negative (Negative); Leukocyte Esterase Urine Negative (Negative); Nitrite Urine Negative (Negative); Specific Gravity - Urine 1.015 (1.005-1.025); Urine Blood Negative (Negative); Urine Ketones Negative (Negative); Urine Protein Negative (Neg-Trace)
[2024-07-19 10:42] LABS: Alanine Aminotransferase 18 U/L (0-40); Albumin Level 4.1 g/dL (3.5-5.0); Alkaline Phosphatase 88 U/L (39-117); Anion Gap 11 (12-20); Aspartate Amino Transferase 22 U/L (5-37); Bilirubin Total 0.5 mg/dL (0.0-1.0); Blood Urea Nitrogen 20 mg/dL (9-16); Calcium 9.8 mg/dL (8.4-10.2); Carbon Dioxide 27 mmol/L (22-29); Chloride 108 mmol/L (96-108); Estimated Glomerular Filt Rate > 60; Glucose Random 87 mg/dL (60-115); Potassium 4.4 mmol/L (3.3-5.1); Sodium 142 mmol/L (135-145); Total Protein 7.6 g/dL (6.5-8.0)
[2024-07-19 11:02] LABS: Creatinine Urine 50.94 mg/dL; Total Protein Urine Random < 7 mg/dL (<12)
== END 2024-07-19 06:47 | disposition home or self-care (01) ==
LOC: HO.HMGCLDS 06:46
PROVIDERS: PCP Internal Medicine; Visit Provider Internal Medicine Hypertension Specialist
DX: N05.9 Unspecified nephritic syndrome with unspecified morphologic changes (principal); N18.9 Chronic kidney disease, unspecified
CPT/HCPCS: 36415; 80053; 81003; 82570; 84156

== ENCOUNTER → 2024-07-26 13:45 | Outpatient (BNVA) | payer MEDICARE, SELFPAY | PROVIDERS: PCP Internal Medicine; Visit Provider Internal Medicine Hypertension Specialist | DX: I12.9 Hypertensive chronic kidney disease with stage 1 through stage 4 chronic kidney disease, or unspecified chronic kidney disease (principal); N18.9 Chronic kidney disease, unspecified | CPT/HCPCS: 99212 ==

== ENCOUNTER 2024-07-29 15:04 | Outpatient (AMB) | payer MEDICARE, SELFPAY ==
[2024-07-29 15:07] VITALS: BP 138/76; PULSE 67; O2SAT 97; BMI 23.2
--- NOTE | 2024-07-29 15:07 | MHC.PC.OV ---
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: No Accompanied by: Self / Same As Patient Allergies No Known Allergies Allergy (Unknown, Verified 07/29/24 15:08) Medication List - Last Reconciled 07/29/24 by Edilberto Scherer MD amlodipine 2.5 mg PO DAILY 30 days ascorbate calcium (vitamin C) 500 mg PO DAILY losartan 100 mg PO DAILY mycophenolate mofetil 500 mg PO BID simvastatin 20 mg PO DAILY Tobacco use date assessed: 07/29/24 Fall risk assessment: 1 Fall in past year Last assessed Fall Risk: 07/29/24 Dental Screening Dental Screen Date: 07/29/24 Did you have a dental visit in the last 12 months?: No Did you have a dental problem in the last 6 months where you did not have access to dental care?: No Was dental information given to patient?: No HPI PE HPI Details 73-year-old male with hypertension hypercholesterolemia nephrotic syndrome coming in for physical exam last seen in 02/28/2024. Patient is up-to-date with colonoscopy January 2022. Patient follows up with Nephrology diagnosis of chronic kidney disease with focal segmental glomerular sclerosis and hypertension no significant proteinuria on mycophenolate chest pain on deep inspirations, had cough and chills 3 days ago but has resolved. no on exertion PFSH Medical History (Updated 07/29/24 @ 15:52 by Edilberto Scherer MD) Chest pain History of COVID-19 Prolapsed hemorrhoids Hemorrhoid COVID-19 vaccine series completed Chronic renal insufficiency Encounter for Medicare annual wellness exam (~08/31/21) Colon cancer screening Hypercholesterolemia Alcohol intoxication Hypertension Surgical History History of hemorrhoidectomy H/O colonoscopy Hx of hand surgery Social History (Updated 07/29/24 @ 15:39 by Edilberto Scherer MD) Housing: House Are you a primary medicare sales representative to a significant other at home: No Do you presently have visiting nurse or other home services: No Alcohol intake: current Alcohol intake frequency: a few times a month Comment: once a month 1 drinks Patient Tobacco Use Status: Former Tobacco user Tobacco use type: Cigarette Years Smoked: quit 1986 e-Cigarette/Vaping Use: Never Used Advance Directives Date on File: 01/24/22 service: No Current occupational status: retired Cognitive needs: No Hearing needs: No Vision needs: Yes Questionnaire PHQ-9 Over the last 2 weeks, how often have you been bothered by any of the following problems? 1. Little interest or pleasure in doing things: nearly every day 2. Feeling down, depressed, or hopeless: nearly every day 3. Trouble falling or staying asleep, or sleeping too much: not at all 4. Feeling tired or having little energy: not at all 5. Poor appetite or overeating: not at all 6. Feeling bad about yourself - or that you are a failure or have let yourself or your family down: not at all 7. Trouble concentrating on things, such as reading the newspaper or watching television: not at all Source: Developed by Drs. Paul Moreno, Leonor Vo, Lawrence Degroot and colleagues, with an educational cyn from [employer]. Thrive Questionnaire Date Thrive assessed: 03/01/24 I am a: Patient What is your living situation today?: I have a steady place to live Within the past 12 months, did the food you bought not last and you didn't have the money to get more?: Often true Within the past 12 months, did you worry whether your food would run out before you got money to buy more?: I choose not to answer this question Do you have trouble paying for medicines?: No Do you have trouble getting transportation to medical appointments?: No Do you have trouble paying your heating and electricity bill?: No Do you have trouble taking care of your child, family member or friend?: No Do you have trouble with day-to-day activities such as bathing, preparing meals, shopping, managing finances, etc.?: No Are you currently unemployed and looking for a job?: No Are you interested in more education?: No Please select the resources that you would like help with: None Currently or been in a relationship where the following occur: I choose not to answer THRIVE Score: 1 AUDIT C Alcohol Use Questionnaire (AUDIT-C) 1. How often do you have a drink containing alcohol?: Monthly or less 2. How many drinks containing alcohol do you have on a typical day when you are drinking?: 1 or 2 3. How often do you have six or more drinks on one occasion?: Never Total Score: 1 KHADRA-7 AMB Questionnaire KHADRA-7 Date KHADRA - 7 assessed: 07/29/24 Feeling nervous, anxious, or on edge: 0 = Not at all Not being able to stop or control worryin = Not at all Worrying too much about different things: 0 = Not at all Trouble relaxin = Not at all Being so restless that it is hard to sit still: 0 = Not at all Becoming easily annoyed or irritable: 0 = Not at all Feeling afraid as if something awful might happen: 0 = Not at all Total KHADRA-7 score (0-4 normal; 5-9 mild; 10-14 moderate; 15-21 severe): 0 Source: Developed by Drs. Paul Moreno, Leonor Vo, Lawrence Degroot and colleagues, with an educational cyn from [employer]. Review of Systems Const Denies poor appetite and Denies weakness Eyes Denies no additional complaints ENT Reports Normal hearing present, Denies dizziness, Denies nasal congestion, Denies tinnitus and Denies sore throat Card Denies chest pain, Denies syncope, Denies rapid heart rate and Denies dyspnea Resp Denies cough and Denies dyspnea GI Denies change in stool character, Reports constipation, Denies diarrhea, Denies nausea and Denies vomiting Denies dysuria and Denies urinary frequency Neuro Reports Normal hearing present, Denies confusion, Denies dizziness, Denies syncope and Denies weakness Psych Denies confusion Physical exam (Primary Care) Vital Signs: Last Vital Signs Pulse 67 07/29/24 15:07 BP 138/76 07/29/24 15:07 Pulse Ox 97 07/29/24 15:07 Oxygen Delivery Method Room Air 07/29/24 15:07 BMI result Body Mass Index 23.2 Tobacco/Smoking Status: Tobacco use Status Tobacco use date assessed 07/29/24 07/29/24 15:14 Patient Tobacco Use Status Former Tobacco user 07/29/24 15:14 Tobacco use type Cigarette 07/29/24 15:14 e-Cigarette/Vaping Use Never Used 07/29/24 15:14 Thrive Assessment: Date of Thrive Assessment Date Thrive assessed 03/01/24 07/29/24 15:14 Currently or been in a relationship where the following occur: I choose not to answer Const General: No confusion Orientation/consciousness: No confusion HENMT Head: Yes normocephalic Ears: external ears normal and TM's normal bilaterally Face and sinus: Yes normal facial exam Mouth: moist mucous membranes Throat: Yes tonsils normal Eyes Conjunctivae: conjunctivae normal Pupils: Equal, round and reactive pupils present and Pupil accommodation reflex normal Direct Ophthalmoscopy: normal light reflex Neck Neck: No lymphadenopathy Thyroid: Thyroid normal Chest Chest palpation & inspection: normal inspection of the chest Resp Effort & Inspection: normal respiratory effort and no audible wheezes Auscultation: clear to auscultation bilaterally, no crackles, no wheezes and lung sounds not diminished Cardio Rate: regular rate Rhythm: regular rhythm Peripheral pulses: radial pulses present and dorsalis pedis present GI Other: guaiac neg Palpation (GI): no masses Auscultation: normal bowel sounds and normoactive bowel sounds Other: R inguinal hernia notedn Skin General skin exam: no rashes or lesions noted Rashes: no rashes Neuro General: No confusion Cranial nerves: Yes Equal, round and reactive pupils present and Yes Normal hearing present Cognition (Neuro): normal cognition Gait exam (Neuro): Normal gait present Motor exam (neuro): 5/5 motor strength present throughout Deep tendon reflexes (DTR's): Right brachioradialis reflex intensity grade: 2+, Left brachioradialis reflex intensity grade: 2+, Right patellar reflex intensity grade: 2+ and Left patellar reflex intensity grade: 2+ Extrem General: No edema Assessment and Plan Assessment & Plan (1) Annual physical exam: Code(s): Z00.00 - Encounter for general adult medical examination without abnormal findings Plan: Patient is advised to eat healthy, keep well hydrated, keep active and have adequate sleep. (2) CKD (chronic kidney disease): Code(s): N18.9 - Chronic kidney disease, unspecified Qualifiers: Chronic kidney disease stage: unspecified stage Qualified Code(s): N18.9 - Chronic kidney disease, unspecified Plan: Patient follows up with Nephrology continuing with mycophenolate. Keep well hydrated avoid NSAIDs (3) Hypertension: Code(s): I10 - Essential (primary) hypertension Qualifiers: Hypertension type: primary hypertension Qualified Code(s): I10 - Essential (primary) hypertension Plan: Continue with blood pressure medication. Decrease salt intake and exercise on losartan 100 mg once a day (4) Hypercholesterolemia: Code(s): E78.00 - Pure hypercholesterolemia, unspecified Plan: Avoid fried foods, chicken skin, eggs, butter margarine, pastries and meat. Be it pork or beef they have a lot of cholesterol LDL goal of less than 130 and triglyceride of less than 150. (5) Chest pain: Code(s): R07.9 - Chest pain, unspecified (6) Right inguinal hernia: Code(s): K40.90 - Unilateral inguinal hernia, without obstruction or gangrene, not specified as recurrent Plan: will refer to surgeon,avoid heavy lifting Orders: Orders Comprehensive Met. Panel 3 Months E78.00 - Pure hypercholesterolemia, unspecified Thyroid Stimulating Hormone 3 Months E78.00 - Pure hypercholesterolemia, unspecified Vitamin D 25-OH Total 3 Months E78.00 - Pure hypercholesterolemia, unspecified Complete Blood Count Auto Diff 3 Months E78.00 - Pure hypercholesterolemia, unspecified Free T4 (Free Thyroxine) 3 Months E78.00 - Pure hypercholesterolemia, unspecified Lipid Panel 3 Months E78.00 - Pure hypercholesterolemia, unspecified Vitamin B12 and Folate 3 Months E78.00 - Pure hypercholesterolemia, unspecified XR chest 2V Today R07.9 - Chest pain, unspecified Referrals General Surgery Referral K40.90 - Unilateral inguinal hernia, without obstruction or gangrene, not specified as recurrent Coding Level of Care Code Est Pt Prev Care >65y(10982) Diagnoses Annual physical exam Z00.00 Chronic kidney disease, unspecified CKD stage N18.9 Chronic kidney disease stage: unspecified stage Primary hypertension I10 Hypertension type: primary hypertension Hypercholesterolemia E78.00 Chest pain R07.9 Right inguinal hernia K40.90
== END 2024-07-29 15:58 | disposition home or self-care (01) ==
PROVIDERS: PCP Internal Medicine; Visit Provider Internal Medicine
DX: Z00.00 Encounter for general adult medical examination without abnormal findings (principal); I12.9 Hypertensive chronic kidney disease with stage 1 through stage 4 chronic kidney disease, or unspecified chronic kidney disease; N18.9 Chronic kidney disease, unspecified; E78.00 Pure hypercholesterolemia, unspecified; R07.9 Chest pain, unspecified; K40.90 Unilateral inguinal hernia, without obstruction or gangrene, not specified as recurrent

== ENCOUNTER → 2024-07-29 15:04 | Outpatient (BNVA) | payer MEDICARE, SELFPAY | PROVIDERS: PCP Internal Medicine; Visit Provider Internal Medicine ==

== ENCOUNTER 2024-07-30 08:59 | Outpatient (REF) | payer MEDICARE, SELFPAY ==
--- NOTE | ~2024-07-30 | XR_ITS ---
EXAMINATION: XR CHEST CLINICAL INFORMATION: Chest pain COMPARISON: Chest x-ray on 11/20/2022 TECHNIQUE: 2 views of the chest were obtained. FINDINGS: No significant abnormality is noted involving the heart, lungs, mediastinum, bony thorax or soft tissues. XR/XR chest 2V IMPRESSION: Unremarkable examination. Electronically signed by: Carey Britt MD 08/17/2024 03:28 PM EDT
== END 2024-07-30 09:00 | disposition home or self-care (01) ==
LOC: HO.HMGCX 08:59
PROVIDERS: PCP Internal Medicine; Visit Provider Internal Medicine
DX: R07.9 Chest pain, unspecified (principal)
CPT/HCPCS: 71046

== ENCOUNTER 2024-08-09 13:34 | Outpatient (AMB) | payer MEDICARE, SELFPAY ==
--- NOTE | 2024-08-09 13:53 | A.OFFVIS_ITS ---
Vital Signs 08/09/24 13:58 Height 5 ft 2.5 in Weight 130 lb BMI 23.4 BP 163/77 H Blood Pressure Location Rt brachial Position Sitting Pulse 70 Intake Visit Reasons: Unilateral inguinal hernia Intake Note: Patient referred by pcp Dr. Scherer for unilateral inguinal hernia. Present for yrs. Patient c/o: once in a while pain when walking. Director Inpatient Headache Program Required: No Accompanied by: Self / Same As Patient Allergies No Known Allergies Allergy (Unknown, Verified 08/09/24 13:57) Medication List - Last Reconciled 08/09/24 by Rolly Nino MD amlodipine 2.5 mg PO DAILY 30 days ascorbate calcium (vitamin C) 500 mg PO DAILY losartan 100 mg PO DAILY mycophenolate mofetil 500 mg PO BID simvastatin 20 mg PO DAILY HPI Comments Details: Patient was Suh's with a symptomatic right inguinal hernia. He has had this many years time. It is increasing in size, become symptomatic. He would like to have it repaired. 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 Patient otherwise tolerating a diet, having regular bowel habits. He has no other GI issues or complaints. Chart was reviewed and patient evaluated [facility] Medical History Chest pain History of COVID-19 Prolapsed hemorrhoids Hemorrhoid COVID-19 vaccine series completed Chronic renal insufficiency Encounter for Medicare annual wellness exam (~08/31/21) Colon cancer screening Hypercholesterolemia Alcohol intoxication Hypertension Surgical History History of hemorrhoidectomy H/O colonoscopy Hx of hand surgery Social History Housing: House Are you a primary acute care nurse practitioner to a significant other at home: No Do you presently have visiting nurse or other home services: No Alcohol intake: current Alcohol intake frequency: a few times a month Comment: once a month 1 drinks Patient Tobacco Use Status: Former Tobacco user Tobacco use type: Cigarette Years Smoked: quit 1986 e-Cigarette/Vaping Use: Never Used Advance Directives Date on File: 01/24/22 service: No Current occupational status: retired Cognitive needs: No Hearing needs: No Vision needs: Yes Physical Exam Vital Signs: Last Vital Signs Pulse 70 08/09/24 13:58 BP 163/77 H 08/09/24 13:58 BMI result Body Mass Index 23.4 Const Other: Thin male in no acute distress Chest Other: Chest breath sounds bilaterally, HS 1 in 2 GI Other: Patient was examined both supine and standing with Valsalva. Abdomen is soft and benign. Left groin negative. Genitalia within normal limits. Moderately sized reducible right inguinal hernia Assessment & Plan Assessment & Plan (1) Right inguinal hernia: Code(s): K40.90 - Unilateral inguinal hernia, without obstruction or gangrene, not specified as recurrent Category: Surgical Plan Risks, benefits, alternatives of open right inguinal hernia repair with mesh were reviewed with the patient included but not limited to bleeding, infection, recurrence, numbness, pain, scarring and the patient wished to proceed. All questions answered. Arrangements were made for this. Coding Level of Care Code New Pt Level 5 (37492) Diagnoses Right inguinal hernia K40.90
[2024-08-09 13:58] VITALS: BP 163/77; PULSE 70; BMI 23.4
== END 2024-08-09 14:36 | disposition home or self-care (01) ==
PROVIDERS: PCP Internal Medicine; Referring Provider Internal Medicine; Visit Provider Surgery
DX: K40.90 Unilateral inguinal hernia, without obstruction or gangrene, not specified as recurrent (principal)
CPT/HCPCS: 99204

== ENCOUNTER → 2024-08-09 13:34 | Outpatient (BNVA) | payer MEDICARE, SELFPAY | PROVIDERS: PCP Internal Medicine; Referring Provider Internal Medicine; Visit Provider Surgery | DX: K40.90 Unilateral inguinal hernia, without obstruction or gangrene, not specified as recurrent (principal) | CPT/HCPCS: 99202 ==

== ENCOUNTER 2024-09-10 07:43 | Day surgery (SDC) | payer MEDICARE, SELFPAY ==
[2024-09-07 13:51] VITALS: BMI 23.4
--- NOTE | 2024-09-09 11:06 | MHC.SHP ---
Pre-Procedural Eval Section A - 24 Hr Update-Section A only Date of Service: 09/10/24 The patient is an INPATIENT: No Changes since office visit: No Cold of Flu in the past 2 weeks, No New Medical Problems, No Changes in Medication and No Patient answered all questions Section B - Complete if H&P > 30 days Chief Complaint: Unilateral inguinal hernia, without obstruction Allergies: Allergies Allergy/AdvReac Type Severity Reaction Status Date / Time No Known Allergies Allergy Unknown Verified 08/09/24 13:57 Review of Systems Sugical H&P ROS: Negative: Constitution, Cardiovascular, Respiratory, Neurological, Psychiatric, Hem-Onc, Allergic/Immunologic, Gastrointestinal, Genitourinary, Musculoskeletal, Integumentary, Endocrine and Eyes/Ears/Nose/Throat Exam Surgical H&P Exam: Normal: HEENT, Normal: Heart, Normal: Lungs, Normal: Extremities, Normal: Abdomen, Normal: Skin and Normal: Neurological Plan I have reviewed the history and physical and performed a pertinent physical examination on my patient. No changes have occurred unless specified. Time Spent With Patient Time: Total time managing care of this patient today ____ minutes.
[2024-09-10 08:19] VITALS: BP 133/61; PULSE 64; RESP 12; TEMP 36.2; O2SAT 96; BMI 23.8
[2024-09-10] MEDS: Lactated Ringers 1,000 ML 50 ML IVCONT (08:46)
--- NOTE | 2024-09-10 08:59 | HO.ANESPROP2 ---
[facility] Active Problems Active Problems: All Active Problems Right inguinal hernia (Acute) FSGS (focal segmental glomerulosclerosis) (Acute) CKD (chronic kidney disease) (Acute) Peripheral vascular disease (Acute) Asymmetrical hearing loss (Acute) Hearing deficit (Acute) Annual physical exam (Acute) Chest pain (Acute) Prolapsed hemorrhoids (Acute) COVID-19 (Acute) Knee pain, left (Acute) Constipation (Acute) Leg cramps (Acute) Tubular adenoma of colon (Acute) Nephrotic syndrome (Acute) Mild depression (Acute) Peripheral neuropathy (Acute Constipation (Acute) Hypercholesterolemia (Acute) Hypertension (Acute) Past Medical History Medical History Peripheral neuropathy Mild depression Hearing deficit FSGS (focal segmental glomerulosclerosis) Chronic renal insufficiency Hypercholesterolemia Alcohol intoxication Hypertension Family History Family history of problems with anesthesia: No Surgical History Surgical History History of hemorrhoidectomy H/O colonoscopy Hx of hand surgery History of Problems with Anesthesia: No Social History Social History Housing: House Are you a primary home care assistant to a significant other at home: No Do you presently have visiting nurse or other home services: No Alcohol intake: current Alcohol intake frequency: holidays/special occasions only Comment: once a month 1 drinks Patient Tobacco Use Status: Former Tobacco user Tobacco use type: Cigarette Years Smoked: quit 1986 e-Cigarette/Vaping Use: Never Used Use of substances other than those prescribed or required for medical reasons: No Have you been hit, kicked, punched, or otherwise hurt by someone within the past year? If so, by whom?: No Are you DNR?: No Advance Directives: No Advance Directives Information Provided: Yes Advance Directives Date on File: 01/24/22 Recently lost weight without trying: No Nutrition Risks: No Nutritional Risk Poor oral hygiene: No service: No Current occupational status: retired Cognitive needs: No Hearing needs: No Vision needs: Yes Meds Allergies Allergy/AdvReac Type Severity Reaction Status Date / Time No Known Allergies Allergy Unknown Verified 09/10/24 08:01 Active Medications: Current Medications Lactated Ringer's (Lr) 1,000 mls @ 50 mls/hr IVCONT .Q20H JACK Last Admin: 09/10/24 08:46 Dose: 50 mls/hr Home Medications ?Medication ?Instructions ?Recorded ?Confirmed ?Last Taken ?Type ascorbate calcium (vitamin C) 500 500 mg PO DAILY 07/29/24 09/10/24 Unknown History mg tablet Exam Height,Weight and Vital Signs: Height 5 ft 2.5 in Weight 59.874 kg Last Vital Signs Temp 97.1 F 09/10/24 08:19 Pulse 64 09/10/24 08:19 Resp 12 09/10/24 08:19 BP 133/61 09/10/24 08:19 Pulse Ox 96 09/10/24 08:19 O2 Del Method Room Air 09/10/24 08:19 Airway Mallampati Class: II TM Dist: >3cm Neck ROM: Full Loose/Missing/Broken Teeth: No Heart: RRR Lungs: CTA Assessment and Plan Assessment Anesthesia Assessment: Anesthesia Plan Discussed and Chart Reviewed Final Anesthetic Review Family History of Problems with Anesthesia: No History of Problems with Anesthesia: No NPO: Yes ASA Class: II Final Preanesthetic Review: Meds/Allgs Chart Reviewed, Consent Obtained/Reviewed and Anes Risks/Benef Reviewed Patient Risk: Low Procedure Risk: Low Anesthetic Plan Anesthetic Plan: GA Disposition: Standard PACU
--- NOTE | 2024-09-10 10:19 | W.PM.OPN ---
Operative Note Operative Note Date of Service: 09/10/24 Narrative: Preoperative diagnosis: [] Symptomatic right inguinal hernia Postop diagnosis: [] The same Procedure [] open right inguinal herniorrhaphy Surgeon: [] Trung Metal Stamping Machine Operator: [] Shelbi Type of Anesthesia: [] General Indication for surgery: [] Very large indirect left inguinal hernia sac. Findings: [] Patient brought to the operating room, placed on operative table supine position, after an adequate level of general anesthesia was induced, the patient's right groin was prepped and draped in usual sterile fashion using a small right para inguinal incision, this carried down through skin, subcutaneous tissue, Harsha's fascia. External oblique fibers were opened their direction with care to isolate and preserve the ilioinguinal nerve throughout the procedure. Spermatic cord was identified and retracted from the field. No direct hernia was demonstrated. A very large indirect hernia sac which extended into the scrotum was from the spermatic cord and reduced. A Bard plug was placed in the indirect defect and sutured inferiorly to the inguinal ligament, and superiorly to the transversalis fascia using interrupted 0 Ethibond suture. At completion of the procedure, mesh was in good position also covered the inguinal floor with no gaps or tension. Wound was irrigated, secured hemostasis, and closed in the following manner; external oblique fascia was closed using running 2-0 Vicryl suture. Harsha's fascia was reapproximated using interrupted 3-0 Vicryl suture. Interrupted inverted deep dermal 3-0 Vicryl sutures followed by running subcuticular 4-0 Vicryl sutures were placed. Steri-Strips and sterile dressings were applied. Wound was infiltrated 0.5% Marcaine/1% lidocaine with ilioinguinal block at the beginning of the case and incision was similarly infiltrated at completion. Sponge, needle, and instrument counts were reported correct. Patient tolerated the procedure well and emerged from anesthesia stable condition. EBL minimal. Ipsilateral testicle was intrascrotal at completion.
[2024-09-10 10:25] VITALS: BP 121/62; PULSE 55; RESP 12; TEMP 36.1; O2SAT 95
[2024-09-10 10:30] VITALS: BP 100/47; PULSE 55; RESP 12; O2SAT 95
[2024-09-10 10:35] VITALS: BP 109/54; PULSE 54; RESP 12; O2SAT 95
[2024-09-10 10:40] VITALS: BP 114/54; PULSE 54; RESP 12; O2SAT 95
[2024-09-10 10:55] VITALS: BP 125/59; PULSE 60; RESP 12; O2SAT 95
== END 2024-09-10 12:20 | disposition home or self-care (01) ==
PROVIDERS: PCP Internal Medicine; Visit Provider Surgery
PROC: (CPT 49505; principal; 2024-09-10 10:10)
DX: K40.90 Unilateral inguinal hernia, without obstruction or gangrene, not specified as recurrent (principal); I12.9 Hypertensive chronic kidney disease with stage 1 through stage 4 chronic kidney disease, or unspecified chronic kidney disease; N18.2 Chronic kidney disease, stage 2 (mild); E78.00 Pure hypercholesterolemia, unspecified; K64.8 Other hemorrhoids; F10.129 Alcohol abuse with intoxication, unspecified; Z79.899 Other long term (current) drug therapy; Z87.891 Personal history of nicotine dependence
CPT/HCPCS: 49505; C1781; J0690; J1100; J2003; J2405; J2704; J3010

== ENCOUNTER → 2024-09-10 07:43 | Outpatient (BNV) | payer MEDICARE, SELFPAY | PROVIDERS: PCP Internal Medicine; Visit Provider Surgery | DX: K40.90 Unilateral inguinal hernia, without obstruction or gangrene, not specified as recurrent (principal) | CPT/HCPCS: 49505 ==

== ENCOUNTER 2024-09-20 10:46 | Outpatient (AMB) | payer MEDICARE, SELFPAY ==
--- NOTE | 2024-09-20 11:23 | MHC.OFFVIS ---
Intake Visit Reasons: s/p RIH repair w/mesh Intake Note: Patient here s/p RIH repair. Reports incisions healing well. Patient c/o: sore. Only taking Advil as needed. 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 Doing quite well. Starting a diet. Having regular bowel habits. He is increasing his activity level. He has minimal incisional discomfort [facility] Medical History Peripheral neuropathy Mild depression Hearing deficit FSGS (focal segmental glomerulosclerosis) Chronic renal insufficiency Hypercholesterolemia Alcohol intoxication Hypertension Surgical History History of hemorrhoidectomy H/O colonoscopy Hx of hand surgery Social History Housing: House Are you a primary family day care worker to a significant other at home: No Do you presently have visiting nurse or other home services: No Alcohol intake: current Alcohol intake frequency: holidays/special occasions only Comment: once a month 1 drinks Patient Tobacco Use Status: Former Tobacco user Tobacco use type: Cigarette Years Smoked: quit 1986 e-Cigarette/Vaping Use: Never Used Advance Directives Date on File: 01/24/22 service: No Current occupational status: retired Cognitive needs: No Hearing needs: No Vision needs: Yes Physical Exam GI Other: Abdomen is soft. Incision clean dry and intact healing well Assessment & Plan Assessment & Plan (1) Status post right inguinal hernia repair: Code(s): Z98.890 - Other specified postprocedural states; Z87.19 - Personal history of other diseases of the digestive system Category: Surgical Plan Patient was been given local instructions including avoiding strenuous activities next few weeks time and will otherwise follow-up p.r.n.. All questions answered. Coding Level of Care Code Global (38579) Diagnoses Status post right inguinal hernia repair Z98.890; Z87.19
== END 2024-09-20 11:45 | disposition home or self-care (01) ==
PROVIDERS: PCP Internal Medicine; Visit Provider Surgery
DX: Z98.890 Other specified postprocedural states (principal); Z87.19 Personal history of other diseases of the digestive system
CPT/HCPCS: 99024

== ENCOUNTER → 2024-09-20 10:46 | Outpatient (BNVA) | payer MEDICARE, SELFPAY | PROVIDERS: PCP Internal Medicine; Visit Provider Surgery | DX: Z09 Encounter for follow-up examination after completed treatment for conditions other than malignant neoplasm (principal); Z87.19 Personal history of other diseases of the digestive system; Z98.890 Other specified postprocedural states | CPT/HCPCS: 99212 ==

== ENCOUNTER 2024-11-19 09:28 | Outpatient (AMB) | payer MEDICARE, SELFPAY ==
[2024-11-19 09:34] VITALS: BP 132/80; PULSE 71; O2SAT 95; BMI 23.3
--- NOTE | 2024-11-19 09:34 | A.OFFPC_ITS ---
Vital Signs 11/19/24 09:34 Height 5 ft 2.5 in Weight 129 lb 6 oz BMI 23.3 BP 132/80 Blood Pressure Location Lt brachial Position Sitting Pulse 71 Pulse Source Pulse Oximeter Pulse Oximetry (%) 95 Oxygen Delivery Method Room Air Intake Visit Reasons: R inguinal hernia Lighting Fixture Installer Required: No Accompanied by: Self / Same As Patient Allergies No Known Allergies Allergy (Unknown, Verified 11/19/24 09:35) Tobacco use date assessed: 11/19/24 Fall risk assessment: No Falls in past year Last assessed Fall Risk: 11/19/24 Dental Screening Dental Screen Date: 11/19/24 Did you have a dental visit in the last 12 months?: No Did you have a dental problem in the last 6 months where you did not have access to dental care?: No Was dental information given to patient?: No HPI R inguinal hernia HPI Details The patient is a 74-year-old male presenting for follow-up care related to his hypertension, hypercholesterolemia, kidney dysfunction, and recent surgery. Last blood work conducted in July showed good renal function and blood sugar levels, and earlier results from November of the previous year revealed no anemia. He has been under treatment for hypertension with good control of blood pressure through medication. The patient also takes cholesterol medication, with levels last assessed in July; a repeat assessment is planned. He underwent an unspecified surgery and has been advised to avoid lif ting heavy objects for several months. He confirmed good bowel movements and urine output, indicating no acute issues. A prior episode of whole-body flu-like symptoms took a week to resolve, and despite being vaccinated for flu, COVID-19, and shingles, the patient reported being careful during the flu season. He noted experiencing swelling, attributed to amlodipine medication, and presented with e czema on his hand, which he scratches and needs hydrocortisone cream. The patient remains proactive with vaccinations and is careful with fluid intake. Eczema has been bothering him, with dryness suggesting the need for consistent moisturizing to maintain skin integrity. [facility] Medical History Peripheral neuropathy Mild depression Hearing deficit FSGS (focal segmental glomerulosclerosis) Chronic renal insufficiency Hypercholesterolemia Alcohol intoxication Hypertension Surgical History History of hemorrhoidectomy H/O colonoscopy Hx of hand surgery Social History Housing: House Are you a primary specialist wound care to a significant other at home: No Do you presently have visiting nurse or other home services: No Alcohol intake: current Alcohol intake frequency: holidays/special occasions only Comment: once a month 1 drinks Patient Tobacco Use Status: Former Tobacco user Tobacco use type: Cigarette Years Smoked: quit 1986 e-Cigarette/Vaping Use: Never Used Advance Directives Date on File: 01/24/22 service: No Current occupational status: retired Cognitive needs: No Hearing needs: No Vision needs: Yes Questionnaire PHQ-9 Over the last 2 weeks, how often have you been bothered by any of the following problems? 1. Little interest or pleasure in doing things: nearly every day 2. Feeling down, depressed, or hopeless: nearly every day 3. Trouble falling or staying asleep, or sleeping too much: not at all 4. Feeling tired or having little energy: not at all 5. Poor appetite or overeating: not at all 6. Feeling bad about yourself - or that you are a failure or have let yourself or your family down: not at all 7. Trouble concentrating on things, such as reading the newspaper or watching television: not at all 8. Moving or speaking so slowly that other people could have noticed. Or the opposite - being so fidgety or restless that you have been moving around a lot m ore than usual: not at all 9. Thoughts that you would be better off or of hurting yourself in some way: not at all Total score: 6 Source: Developed by Drs. Paul Moreno, Leonor Vo, Lawrence Degroot and colleagues, with an educational cyn from [employer]. Thrive Questionnaire Date Thrive assessed: 11/19/24 I am a: Patient What is your living situation today?: I have a steady place to live Within the past 12 months, did the food you bought not last and you didn't have the money to get more?: Often true Within the past 12 months, did you worry whether your food would run out before you got money to buy more?: I choose not to answer this question Do you have trouble paying for medicines?: No Do you have trouble getting transportation to medical appointments?: No Do you have trouble paying your heating and electricity bill?: No Do you have trouble taking care of your child, family member or friend?: No Do you have trouble with day-to-day activities such as bathing, preparing meals, shopping, managing finances, etc.?: No Are you currently unemployed and looking for a job?: No Are you interested in more education?: No Please select the resources that you would like help with: None Currently or been in a relationship where the following occur: I choose not to answer THRIVE Score: 1 AUDIT C Alcohol Use Questionnaire (AUDIT-C) 1. How often do you have a drink containing alcohol?: Monthly or less 2. How many drinks containing alcohol do you have on a typical day when you are drinking?: 1 or 2 3. How often do you have six or more drinks on one occasion?: Never Total Score: 1 KHADRA-7 AMB Questionnaire KHADRA-7 Date KHADRA - 7 assessed: 11/19/24 Feeling nervous, anxious, or on edge: 0 = Not at all Not being able to stop or control worryin = Not at all Worrying too much about different things: 0 = Not at all Trouble relaxin = Not at all Being so restless that it is hard to sit still: 0 = Not at all Becoming easily annoyed or irritable: 0 = Not at all Feeling afraid as if something awful might happen: 0 = Not at all Total KHADRA-7 score (0-4 normal; 5-9 mild; 10-14 moderate; 15-21 severe): 0 Source: Developed by Drs. Paul Moreno, Leonor Vo, Lawrence Degroot and colleagues, with an educational cyn from [employer]. Physical exam (Primary Care) Vital Signs: Last Vital Signs Pulse 71 11/19/24 09:34 BP 132/80 11/19/24 09:34 Pulse Ox 95 11/19/24 09:34 Oxygen Delivery Method Room Air 11/19/24 09:34 BMI result Body Mass Index 23.3 Tobacco/Smoking Status: Tobacco use Status Tobacco use date assessed 11/19/24 11/19/24 09:37 Patient Tobacco Use Status Former Tobacco user 11/19/24 09:37 Tobacco use type Cigarette 11/19/24 09:37 e-Cigarette/Vaping Use Never Used 11/19/24 09:37 PHQ-9: PHQ-9 Score PHQ-9: Total score 6 11/19/24 09:45 Thrive Assessment: Date of Thrive Assessment Date Thrive assessed 11/19/24 11/19/24 09:37 Currently or been in a relationship where the following occur: I choose not to answer Const General: alert; No acute distress Eyes Conjunctivae: conjunctivae normal Resp Auscultation: clear to auscultation bilaterally Cardio Rate: regular rate Rhythm: regular rhythm GI Inspection: Yes normal to inspection Extrem General: Yes normal to inspection and No edema Coding Level of Care Code Est Pt Level 4 (85285) Complex EM visit Add On G2211 Diagnoses Chronic kidney disease, unspecified CKD stage N18.9 Chronic kidney disease stage: unspecified stage Status post right inguinal hernia repair Z98.890; Z87.19 Primary hypertension I10 Hypertension type: primary hypertension Hypercholesterolemia E78.00 Assessment & Plan Assessment & Plan (1) CKD (chronic kidney disease): Code(s): N18.9 - Chronic kidney disease, unspecified Category: Medical Qualifiers: Chronic kidney disease stage: unspecified stage Qualified Code(s): N18.9 - Chronic kidney disease, unspecified (2) Status post right inguinal hernia repair: Code(s): Z98.890 - Other specified postprocedural states; Z87.19 - Personal history of other diseases of the digestive system Category: Surgical (3) Hypertension: Code(s): I10 - Essential (primary) hypertension Category: Medical Qualifiers: Hypertension type: primary hypertension Qualified Code(s): I10 - Essential (primary) hypertension (4) Hypercholesterolemia: Code(s): E78.00 - Pure hypercholesterolemia, unspecified Category: Medical Plan - Order blood work to assess kidney function and cholesterol levels; ensure both the routine panel and tests requested by the motor tune up specialist are included. - Continue antihypertensive medication regimen as blood pressure remains well- controlled. - Monitor for swelling due to amlodipine; if significant discomfort arises, re- evaluation will be necessary. - Advise the application of hydrocortisone cream to treat eczema and recommend regular use of a moisturizing lotion once inflammation subsides. - Reinforce the importance of adequate fluid intake to support kidney health. - Encourage exercise and a healthy diet to manage overall health and prevent further complications. - Remind patient about health precautions during flu season and the importance of ongoing vaccination.
== END 2024-11-19 09:59 | disposition home or self-care (01) ==
PROVIDERS: PCP Internal Medicine; Visit Provider Internal Medicine
DX: I12.9 Hypertensive chronic kidney disease with stage 1 through stage 4 chronic kidney disease, or unspecified chronic kidney disease (principal); N18.9 Chronic kidney disease, unspecified; Z98.890 Other specified postprocedural states; Z87.19 Personal history of other diseases of the digestive system; E78.00 Pure hypercholesterolemia, unspecified

== ENCOUNTER → 2024-11-19 09:28 | Outpatient (BNVA) | payer MEDICARE, SELFPAY | PROVIDERS: PCP Internal Medicine; Visit Provider Internal Medicine | DX: I12.9 Hypertensive chronic kidney disease with stage 1 through stage 4 chronic kidney disease, or unspecified chronic kidney disease (principal); N18.9 Chronic kidney disease, unspecified; E78.00 Pure hypercholesterolemia, unspecified; Z98.890 Other specified postprocedural states; Z87.19 Personal history of other diseases of the digestive system | CPT/HCPCS: 99212 ==

== ENCOUNTER 2025-03-09 06:23 | Outpatient (REF) | payer MEDICARE, SELFPAY ==
--- OUTSIDE RECORDS SUMMARY | 2025-03-09 06:25 | XMS_ITS | Encounter Summary ---
Author Organization [facility] Address [address] [place] [address] Phone Care Team Providers Care Sawmill Or Timber Yard Worker Name Role Phone Edilberto Scherer MD Primary Care Provider Encounter Details Date Type Department Care Team (Late st Contact Info) Description 02/27/2023 Telephone [facility] [address] [place] [address] Iesha Spann Social History Tobacco Use Types Packs/Day Years Used Date Smoking Tobacco: Former Smokeless Tobacco: Former Alcohol Use Standard Drinks/Week Comments Yes 0 (1 standard drink = 0.6 oz pure alcohol) Alcoholic Drinks/day: Occasional social drink Sex and Gender Information Value Date Recorded Sex Assigned at Not on file Legal Sex Male 5:13 PM EST Gender Identity Not on file Sexual Orientation Not on file documented as of this encounter Miscellaneous Notes * Telephone Encounter - Iesha Spann - 02/27/2023 10:40 AM EDT PT says he needs an authorization for his script simvastatin (ZOCOR) 20 MG tablet. I told the PT his script was filled for 02/20/23 but he says he is all out, then he says that he needs an authorization so not sure if he understood me. He keeps insisting he needs a refill. documented in this encounter Plan of Treatment Not on file documented as of this encounter Visit Diagnoses Not on filedocumented in this encounter Care Teams Sawmill Or Timber Yard Worker Relationship Specialty Start Date End Date Edilberto Scherer MD [facility] [address] [place] PCP - General Internal Medicine 07/30/21 documented as of this encounter
[2025-03-09 10:01] LABS: MANUAL DIFF FLAG NO
[2025-03-09 10:11] LABS: Appearance Urine Clear; Basophils Percent Auto 0.9 % (0-2); Color Urine Yellow; Eosinophils Absolute Auto 0.3 X10*3/uL (0.0-0.4); Eosinophils Percent Auto 5.4 % (0-4); Glucose Urine UA Negative (Negative); Hematocrit 40.2 % (42.0-52.0); Hemoglobin 12.8 g/dl (14.0-18.0); Imm Gran Abs Auto 0.01 X10*3/uL (0.00-0.03); Imm Gran Pct Auto 0.2 % (0.0-0.4); Leukocyte Esterase Urine Negative (Negative); Lymphocytes Absolute Auto 1.4 X10*3/uL (1.2-4.9); Lymphocytes Percent Auto 30.9 % (20-40); Mean Corpuscular HGB Conc 31.8 g/dl (31.0-36.0); Mean Corpuscular Hemoglobin 30.4 pg (27.0-33.0); Mean Corpuscular Volume 95.5 fL (80.0-98.0); Mean Platelet Volume 10.7 fL (9.4-12.4); Monocytes Absolute Auto 0.4 X10*3/uL (0.1-1.2); Monocytes Percent Auto 9.3 % (2-11); Neutrophils Absolute Auto 2.5 x10*3/uL (2.0-8.3); Neutrophils Percent Auto 53.3 % (45-73); Nitrite Urine Negative (Negative); PH 5.5 (5.0-9.0); Platelet Count 196 X10*3/uL (160-400); Red Blood Count 4.21 X10*6/uL (4.60-5.80); Red Cell Distribution Width 12.8 % (11.0-16.0); Urine Blood Negative (Negative); Urine Ketones Negative (Negative); Urine Protein Negative (Neg-Trace); White Blood Count 4.6 X10*3/uL (4.8-10.8)
[2025-03-09 10:56] LABS: Alanine Aminotransferase 25 U/L (0-40); Albumin Level 3.8 g/dL (3.5-5.0); Alkaline Phosphatase 96 U/L (39-117); Anion Gap 11 (12-20); Aspartate Amino Transferase 36 U/L (5-37); Bilirubin Total 0.8 mg/dL (0.0-1.0); Blood Urea Nitrogen 22 mg/dL (9-16); Calcium 9.5 mg/dL (8.4-10.2); Carbon Dioxide 25 mmol/L (22-29); Chloride 110 mmol/L (96-108); Cholesterol 161 mg/dL (<200); Estimated Glomerular Filt Rate > 60; Glucose Random 83 mg/dL (60-115); HDL Cholesterol 57 mg/dL (>40); LDL Cholesterol Calculated 91 mg/dL (<100); Sodium 142 mmol/L (135-145); Total Protein 7.1 g/dL (6.5-8.0); Triglycerides 68 mg/dL (<150)
[2025-03-09 10:57] LABS: Vitamin D 25-OH Total 44.1 ng/mL (>30)
[2025-03-09 11:04] LABS: Creatinine Urine 125.04 mg/dL; Total Protein Urine Random < 7 mg/dL (<12)
[2025-03-09 11:18] LABS: Folate 8.6 ng/mL (> or = 4.0); Vitamin B12 758 pg/mL (200-900)
== END 2025-03-09 06:24 | disposition home or self-care (01) ==
LOC: HO.HMGCLDS 06:23
PROVIDERS: PCP Internal Medicine; Referring Provider Internal Medicine Hypertension Specialist; Visit Provider Internal Medicine
DX: N05.1 Unspecified nephritic syndrome with focal and segmental glomerular lesions (principal); N18.9 Chronic kidney disease, unspecified; E78.00 Pure hypercholesterolemia, unspecified
CPT/HCPCS: 36415; 80053; 80061; 81003; 82306; 82570; 82607; 82746; 84156; 84439; 84443; 85025

== ENCOUNTER 2025-03-17 14:52 | Outpatient (AMB) | payer BC, SELFPAY ==
[2025-03-17 14:51] VITALS: BP 128/60; PULSE 75; O2SAT 97; BMI 23.8
--- NOTE | 2025-03-17 14:51 | HO.NEPHOV_ITS ---
Vital Signs 03/17/25 14:51 Height 5 ft 2.5 in Weight 132 lb BMI 23.8 BP 128/60 Blood Pressure Location Rt brachial Position Sitting Pulse 75 Pulse Source Pulse Oximeter Pulse Oximetry (%) 97 Oxygen Delivery Method Room Air Intake Visit Reasons: 6 mon follow up-[facility] Child Care Sitter Required: No Accompanied by: Self / Same As Patient Allergies No Known Allergies Allergy (Unknown, Verified 03/17/25 14:51) Medication List - Last Reconciled 03/17/25 by Jaylan Quintero MD amlodipine 2.5 mg PO DAILY ascorbate calcium (vitamin C) 500 mg PO DAILY losartan 100 mg PO DAILY mycophenolate mofetil 500 mg PO BID simvastatin 20 mg PO DAILY HPI Comments Details: 73 yr old man with FSGS Treated with immunosuppresants and currently in remission h/o 3 episodes of relapse h/o HTN and dyslipidemia No new issues today 03/17/2025 Overall doing well no specific complaints. He has a skin lesion on the right lower extremity which is hyperpigmented [facility] Medical History Peripheral neuropathy Mild depression Hearing deficit FSGS (focal segmental glomerulosclerosis) Chronic renal insufficiency Hypercholesterolemia Alcohol intoxication Hypertension Surgical History History of hemorrhoidectomy H/O colonoscopy Hx of hand surgery Social History Housing: House Are you a primary women's health care nurse practitioner to a significant other at home: No Do you presently have visiting nurse or other home services: No Alcohol intake: current Alcohol intake frequency: holidays/special occasions only Comment: once a month 1 drinks Patient Tobacco Use Status: Former Tobacco user Tobacco use type: Cigarette Years Smoked: quit 1986 e-Cigarette/Vaping Use: Never Used Advance Directives Date on File: 01/24/22 service: No Current occupational status: retired Cognitive needs: No Hearing needs: No Vision needs: Yes Physical Exam Vital Signs: Last Vital Signs Pulse 75 03/17/25 14:51 BP 128/60 03/17/25 14:51 Pulse Ox 97 03/17/25 14:51 Oxygen Delivery Method Room Air 03/17/25 14:51 BMI result Body Mass Index 23.8 Const General: comfortable Nutritional Appearance: well nourished Orientation/consciousness: patient oriented x3 HEENT Head: No normal to inspection Mouth: moist mucous membranes Neck Neck: Yes supple and Yes no JVD Resp Auscultation: clear to auscultation bilaterally and no rales Cardio Jugular venous distension: no JVD Palpation: no palpable S3 and no palpable S4 Heart sounds: no rubs GI Palpation (GI): Soft to palpation and nontender Percussion: No Fluid wave present General: Yes no CVA tenderness Back/Spine/Pelvis Back: no CVA tenderness Skin General skin exam: no rashes or lesions noted Neuro General: patient oriented x3 Extrem General: Yes no pedal edema and No clubbing Results Reviewed Nephrology Results: Hgb 12.8 g/dl (14.0-18.0) L 03/09/25 WBC 4.6 X10*3/uL (4.8-10.8) L 03/09/25 Plt Count 196 X10*3/uL (160-400) 03/09/25 Sodium 142 mmol/L (135-145) 03/09/25 Potassium 4.0 mmol/L (3.3-5.1) 03/09/25 Chloride 110 mmol/L (96-108) H 03/09/25 Carbon Dioxide 25 mmol/L (22-29) 03/09/25 BUN 22 mg/dL (9-16) H 03/09/25 Creatinine 0.88 mg/dL (0.5-1.4) 03/09/25 Calcium 9.5 mg/dL (8.4-10.2) 03/09/25 Urine Protein Negative mg/dL (Neg-Trace) 03/09/25 Urine Creatinine 125.04 mg/dL 03/09/25 Assessment & Plan Assessment & Plan (1) CKD (chronic kidney disease): Code(s): N18.9 - Chronic kidney disease, unspecified Category: Medical Qualifiers: Chronic kidney disease stage: unspecified stage Qualified Code(s): N18.9 - Chronic kidney disease, unspecified (2) FSGS (focal segmental glomerulosclerosis): Code(s): N05.1 - Unspecified nephritic syndrome with focal and segmental glomerular lesions Category: Medical (3) Hypertension: Code(s): I10 - Essential (primary) hypertension Category: Medical Qualifiers: Hypertension type: primary hypertension Qualified Code(s): I10 - Essential (primary) hypertension Plan 74 yr old man with FSGS in remission No significant proteinuria Creatinine is stable in the normal range Continue Mycophenalate Volume status is normal BP well controlled Continue with ARB for protection Avoid nephrotoxins including NSAIDS Refer to dermatology to rule out possible Kaposi sarcoma Orders: Orders Basic Metabolic Panel 6 Months N18.9 - Chronic kidney disease, unspecified UA and rflx microscopic 6 Months N18.9 - Chronic kidney disease, unspecified Referrals Dermatology Referral L81.9 - Disorder of pigmentation, unspecified Coding Level of Care Code Est Pt Level 4 (65729) Diagnoses Chronic kidney disease, unspecified CKD stage N18.9 Chronic kidney disease stage: unspecified stage FSGS (focal segmental glomerulosclerosis) N05.1 Primary hypertension I10 Hypertension type: primary hypertension
--- OUTSIDE RECORDS SUMMARY | 2025-03-17 15:31 | XMS_ITS | Clinical Summary ---
Author Organization [facility] Address [address] [place] [address] Phone Care Team Providers Care Explosive Ordnance Disposal Manager Name Role Phone Edilberto Scherer MD Primary Care Provider [phone] Allergies No known active allergies Medications cholecalciferol (VITAMIN D-3) 25 MCG (1000 UT) capsule Take 1,000 Units by mouth 1 (one) time each day 12/24/2016 Active tiZANidine (ZANAFLEX) 4 MG tablet Take 4 mg by mouth every 6 (six) hours if needed for muscle spasms Active losartan (COZAAR) 100 MG tablet TAKE 1 TABLET BY MOUTH DAILY. 90 tablet 3 10/29/2022 Active simvastatin (ZOCOR) 20 MG tablet Take 1 tablet (20 mg total) by mouth 1 (one) time each day 30 tablet 5 02/27/2023 Active Active Problems Problem Noted Date Diagnosed Date Screening for malignant neoplasm of colon 202208/07/2023 Encounter for other preprocedural examination 08/07/2023 Diverticulosis of colon 08/07/2023 08/07/20 23 Preprocedural examination done 08/07/2023 0 08/07/2023 Chronic kidney disease stage 2 12/20/2020 Essential hypertension 12/20/2020 Nephrotic syndrome, focal and segmental glomerul ar lesions 12/20/2020 Proteinuria 12/20/2020 Immunizations Immunization Administration Dates Next Due Influenza, Recombinant, Quadrivalent, Pf 020 Influenza, Unspecified 07/11/2021 Family History Relation Status Comments Father Unknown Mother Unknown Social History Tobacco Use Types Packs/Day Years Used Date Smoking Tobacco: Former Smokeless Tobacco: Former Tobacco Cessation:Counseling Given: Not Answered Alcohol Use Standard Drinks/Week Comments Yes 0 (1 standard drink = 0.6 oz pure alcohol) Alcoholic Drinks/day: Occasional social drink Sex and Gender Information Value Date Recorded Sex Assigned at Not on file Legal Sex Male 5:13 PM EST Gender Identity Not on file Sexual Orientation Not on file Last Filed Vital Signs Vital Sign Reading Time Taken Comments Blood Pressure 129/85 08/07/2023 2:55 PM EDT Pulse 64 08/07/2023 2:55 PM EDT Temperature - - Respiratory Rate - - Oxygen Saturation 97% 08/07/2023 2:55 PM EDT Inhaled Oxygen Concentration - - Weight 60.3 kg (133 lb) 08/07/2023 2:55 PM EDT Height 162.6 cm (5' 4 ) 05/01/2023 3:44 PM EDT Body Mass Index 22.83 05/01/2023 3:44 PM EDT Plan of Treatment Health Maintenance Due Date Last Done Comments Pneumococcal Vaccine: 50+ Years (1 of 2 - PCV) 1969 Colorectal Cancer Screening: Annual FOBT 1999 Colorectal Cancer Screening: Colonoscopy 1999 Colorectal Cancer Screening: Sigmoidoscopy 1999 Influenza Vaccine (Season Ended) 2025 07/11/2021, 08/25/2020 Hepatitis B Vaccine Aged Out No longe r eligible based on patient's age to complete this topic Insurance [facility] Care Teams Explosive Ordnance Disposal Manager Relationship Specialty Start Date End Date Edilberto Scherer MD [facility] [address] [place], [place] PCP - General Internal Medicine 07/30/21
--- OUTSIDE RECORDS SUMMARY | 2025-03-17 15:32 | XMS_ITS | Patient Health Record ---
Author Organization [facility] Address [address] [place] [address] Care Team Providers Care Seasoning Sprayer Name Role Phone Edilberto Scherer MD Primary Care Provider Paul Soto [phone] Reason For Referral No Information Medications Medication SIG (Take, Route, Frequency, Duration) Notes Start Date End Date Status Vitamin C Active Simvastatin 20 MG Oral for 30 Active Losartan Potassium 100 MG Oral for 90 Active Immunizations Vaccine Route Administration Date Status Comme nts Influenza Unknown 07/11/2021 Administered Social History Tobacco Use: Social History Observation Description Date Details (start date - stop date) Never Smoker NA - NA Tobacco Use/Smoking Question Answer Notes Patient is a nonsmoker Alcohol Screen Question Answer Notes Did you have a drink contain ing alcohol in the past year? Yes How often did you have a dri nk containing alcohol in the past year? 2 to 4 times a month (2 points) How many drinks did you have on a typical day when you were drinking in the past year? 1 or 2 drinks (0 point) How often did you have 6 or more drinks on one occasion in the past year? Never (0 point) Points 2 Interpretation Negative Section Notes: Nonsmoker; no sig alcohol Problems Problem Type SNOMED Code ICD Code Onset Dates Problem Status W/U Status Risk Notes Problem [id number] Encounter for screening for malignant neoplasm of colon (Z12.11) Active confirmed Problem [id number] Preprocedural examination (Z01.818) Active confirmed Problem Diverticulosis of colon (789897155) Diverticulosis of colon (K57.30) Active confirmed Plan Of Treatment Pending Test Test Name Order Date Pathology 01/23/2022 Future Test Test Name Order Date COLONOSCOPY 12/11/2021 Insurance Providers Payer Name Payer Address Payer Phone Subscriber Number Group Number Insured Name Patient Relationship to Insured Coverage Start Date Coverage End Date [facility] [address] [place] [address] [id number] EMELI LOVE Self - patient is the insured Medical (General) History Medical History History ICD Code Hypertension Kidney disease stage 2- Dr. Quintero-nephrotic syndrome-approx 2004--treated with prednisone---stable as of the 12/11/2021 OV Denies [place],DM,CVA,Lung disease Hyperlipidemia Surgical History Surgery Date(Month/Year)
--- OUTSIDE RECORDS SUMMARY | 2025-03-17 15:32 | XMS_ITS | Encounter Summary ---
Author Organization [facility] Address [address] [place] [address] Phone Care Team Providers Care Rn Home Health Name Role Phone Edilberto Scherer MD Primary Care Provider [phone] Encounter Details Date Type Department Care Team (Late st Contact Info) Description 02/27/2023 Telephone [facility] [address] [place] [address] Iesha Spann Social History Tobacco [...] on filedocumented in this encounter Care Teams Rn Home Health Relationship Specialty Start Date End Date Edilberto Scherer MD [facility] [address] [place] PCP - General Internal Medicine 07/30/21 documented as of this encounter
== END 2025-03-17 15:16 | disposition home or self-care (01) ==
LOC: HO.HKA 14:53
PROVIDERS: PCP Internal Medicine; Visit Provider Internal Medicine Hypertension Specialist
DX: I12.9 Hypertensive chronic kidney disease with stage 1 through stage 4 chronic kidney disease, or unspecified chronic kidney disease (principal); N18.9 Chronic kidney disease, unspecified
CPT/HCPCS: 99214

== ENCOUNTER 2025-07-01 13:37 | Outpatient (AMB) | payer MEDICARE, SELFPAY ==
--- NOTE | 2025-07-01 13:39 | A.OFFPC_ITS ---
Vital Signs 07/01/25 13:40 Height 5 ft 2.5 in Weight 129 lb 2 oz BMI 23.2 BP 130/72 Blood Pressure Location Lt brachial Position Sitting Pulse 72 Pulse Source Pulse Oximeter Temp 97.5 F Temp Source Temporal Artery Scan Pulse Oximetry (%) 97 Oxygen Delivery Method Room Air Intake Visit Reasons: Annual Exam Accompanied by: Daughter Allergies No Known Allergies Allergy (Unknown, Verified 07/01/25 13:44) Medication List - Last Reconciled 07/01/25 by Edilberto Scherer MD amlodipine 2.5 mg PO DAILY cholecalciferol (vitamin D3) 125 mcg PO DAILY losartan 100 mg PO DAILY mycophenolate mofetil 500 mg PO BID simvastatin 20 mg PO DAILY Tobacco use date assessed: 07/01/25 Fall risk assessment: 1 Fall in past year Last assessed Fall Risk: 07/01/25 Dental Screening Dental Screen Date: 07/01/25 Did you have a dental visit in the last 12 months?: No Did you have a dental problem in the last 6 months where you did not have access to dental care?: No Was dental information given to patient?: No HPI Annual Exam HPI Details cough , scratchy throat, PFSH Medical History Peripheral neuropathy Mild depression Hearing deficit FSGS (focal segmental glomerulosclerosis) Chronic renal insufficiency Hypercholesterolemia Alcohol intoxication Hypertension Surgical History History of hemorrhoidectomy H/O colonoscopy Hx of hand surgery Social History Housing: House Are you a primary reproductive healthcare assistant to a significant other at home: No Do you presently have visiting nurse or other home services: No Alcohol intake: current Alcohol intake frequency: holidays/special occasions only Comment: once a month 1 drinks Patient Tobacco Use Status: Former Tobacco user Tobacco use type: Cigarette Years Smoked: quit 1986 e-Cigarette/Vaping Use: Never Used Advance Directives Date on File: 01/24/22 service: No Current occupational status: retired Cognitive needs: No Hearing needs: No Vision needs: Yes Questionnaire PHQ-9 Over the last 2 weeks, how often have you been bothered by any of the following problems? 1. Little interest or pleasure in doing things: several days 2. Feeling down, depressed, or hopeless: several days 3. Trouble falling or staying asleep, or sleeping too much: not at all 4. Feeling tired or having little energy: more than half the days 5. Poor appetite or overeating: more than half the days 6. Feeling bad about yourself - or that you are a failure or have let yourself or your family down: not at all 7. Trouble concentrating on things, such as reading the newspaper or watching television: more than half the days 8. Moving or speaking so slowly that other people could have noticed. Or the opposite - being so fidgety or restless that you have been moving around a lot more than usual: not at all 9. Thoughts that you would be better off or of hurting yourself in some way: not at all Total score: 8 Source: Developed by Drs. Paul Moreno, Leonor Vo, Lawrence Degroot and colleagues, with an educational cyn from [employer]. Thrive Questionnaire Date Thrive assessed: 11/19/24 I am a: Patient What is your living situation today?: I have a steady place to live Within the past 12 months, did the food you bought not last and you didn't have the money to get more?: Never true Within the past 12 months, did you worry whether your food would run out before you got money to buy more?: Never true Do you have trouble paying for medicines?: No Do you have trouble getting transportation to medical appointments?: No Do you have trouble paying your heating and electricity bill?: No Do you have trouble taking care of your child, family member or friend?: I choose not to answer this question Do you have trouble with day-to-day activities such as bathing, preparing meals, shopping, managing finances, etc.?: No Are you currently unemployed and looking for a job?: No Are you interested in more education?: I choose not to answer this question Please select the resources that you would like help with: None Currently or been in a relationship where the following occur: No concerns reported THRIVE Score: 0 AUDIT C Alcohol Use Questionnaire (AUDIT-C) 1. How often do you have a drink containing alcohol?: Monthly or less 2. How many drinks containing alcohol do you have on a typical day when you are drinking?: 1 or 2 3. How often do you have six or more drinks on one occasion?: Never Total Score: 1 KHADAR-7 AMB Questionnaire KHADRA-7 Date KHADRA - 7 assessed: 11/19/24 Feeling nervous, anxious, or on edge: 0 = Not at all Not being able to stop or control worryin = Not at all Worrying too much about different things: 0 = Not at all Trouble relaxin = Not at all Being so restless that it is hard to sit still: 0 = Not at all Becoming easily annoyed or irritable: 0 = Not at all Feeling afraid as if something awful might happen: 0 = Not at all Total KHADRA-7 score (0-4 normal; 5-9 mild; 10-14 moderate; 15-21 severe): 0 Source: Developed by Drs. Paul Moreno, Leonor Vo, Lawrence Degroot and colleagues, with an educational cyn from [employer]. Review of Systems Const Denies poor appetite and Denies weakness Eyes Denies no additional complaints ENT Reports Normal hearing present, Denies dizziness, Denies nasal congestion, Denies tinnitus and Denies sore throat Card Denies chest pain, Denies syncope, Denies rapid heart rate and Denies dyspnea Resp Denies cough and Denies dyspnea GI Denies change in stool character, Reports constipation, Denies diarrhea, Denies nausea and Denies vomiting Denies dysuria and Denies urinary frequency Neuro Reports Normal hearing present, Denies confusion, Denies dizziness, Denies syncope and Denies weakness Psych Denies confusion Physical exam (Primary Care) Vital Signs: Last Vital Signs Temp 97.5 F 07/01/25 13:40 Pulse 72 07/01/25 13:40 BP 130/72 07/01/25 13:40 Pulse Ox 97 07/01/25 13:40 Oxygen Delivery Method Room Air 07/01/25 13:40 BMI result Body Mass Index 23.2 Tobacco/Smoking Status: Tobacco use Status Tobacco use date assessed 07/01/25 07/01/25 13:47 Patient Tobacco Use Status Former Tobacco user 07/01/25 13:47 Tobacco use type Cigarette 07/01/25 13:47 e-Cigarette/Vaping Use Never Used 07/01/25 13:47 PHQ-9: PHQ-9 Score PHQ-9: Total score 8 07/01/25 14:12 Thrive Assessment: Date of Thrive Assessment Date Thrive assessed 11/19/24 07/01/25 13:47 Currently or been in a relationship where the following occur: No concerns reported Const General: No confusion Orientation/consciousness: No confusion HENMT Head: Yes normocephalic Ears: external ears normal and TM's normal bilaterally Face and sinus: Yes normal facial exam Mouth: moist mucous membranes Throat: Yes tonsils normal Eyes Conjunctivae: conjunctivae normal Pupils: Equal, round and reactive pupils present and Pupil accommodation reflex normal Direct Ophthalmoscopy: normal light reflex Neck Neck: No lymphadenopathy Thyroid: Thyroid normal Chest Chest palpation & inspection: normal inspection of the chest Resp Effort & Inspection: normal respiratory effort and no audible wheezes Auscultation: clear to auscultation bilaterally, no crackles, no wheezes and lung sounds not diminished Cardio Rate: regular rate Rhythm: regular rhythm Peripheral pulses: radial pulses present and dorsalis pedis present GI Palpation (GI): no masses Auscultation: normal bowel sounds and normoactive bowel sounds Rectal Exam - Male: Yes deferred Skin General skin exam: no rashes or lesions noted Rashes: no rashes Neuro General: No confusion Cranial nerves: Yes Equal, round and reactive pupils present and Yes Normal hearing present Cognition (Neuro): normal cognition Gait exam (Neuro): Normal gait present Motor exam (neuro): 5/5 motor strength present throughout Deep tendon reflexes (DTR's): Right brachioradialis reflex intensity grade: 2+, Left brachioradialis reflex intensity grade: 2+, Right patellar reflex intensity grade: 2+ and Left patellar reflex intensity grade: 2+ Extrem General: No edema Coding Level of Care Code Est Pt Prev Care >65y(03959) Diagnoses Annual physical exam Z00.00 Hyperpigmented skin lesion L81.9 Chronic kidney disease, unspecified CKD stage N18.9 Chronic kidney disease stage: unspecified stage Constipation K59.00 Hypercholesterolemia E78.00 Primary hypertension I10 Hypertension type: primary hypertension Cough R05.9 Knee pain, bilateral M25.561; M25.562 Assessment & Plan Assessment & Plan (1) Annual physical exam: Code(s): Z00.00 - Encounter for general adult medical examination without abnormal findings Category: Medical Plan: Patient is advised to eat healthy, keep well hydrated, keep active and have adequate sleep. (2) Hyperpigmented skin lesion: Code(s): L81.9 - Disorder of pigmentation, unspecified Category: Medical Plan: Patient has been referred to dermatology (3) CKD (chronic kidney disease): Code(s): N18.9 - Chronic kidney disease, unspecified Category: Medical Qualifiers: Chronic kidney disease stage: unspecified stage Qualified Code(s): N18.9 - Chronic kidney disease, unspecified Plan: Continue to follow-up with Nephrology patient is on mycophenolate (4) Constipation: Code(s): K59.00 - Constipation, unspecified Category: Medical Plan: Three rules for constipation 1. Diet need to have a high fiber diet less of meat 2. Increase oral fluids 3. Exercise (5) Hypercholesterolemia: Code(s): E78.00 - Pure hypercholesterolemia, unspecified Category: Medical Plan: Avoid fried foods, chicken skin, eggs, butter margarine, pastries and meat. Be it pork or beef they have a lot of cholesterol on simvastatin 20 mg once a day (6) Hypertension: Code(s): I10 - Essential (primary) hypertension Category: Medical Qualifiers: Hypertension type: primary hypertension Qualified Code(s): I10 - Essential (primary) hypertension Plan: Continue with blood pressure medication. Decrease salt intake and exercise continue with losartan 100 mg once a day and amlodipine 2.5 mg once a day (7) Cough: Code(s): R05.9 - Cough, unspecified Category: Medical (8) Knee pain, bilateral: Code(s): M25.561 - Pain in right knee; M25.562 - Pain in left knee Category: Medical Plan History of Present Illness The patient is a 74-year-old male presenting for a physical examination and management of multiple chronic conditions. The patient has a history of hypertension, which is currently well-controlled with medication, including losartan and amlodipine. He also has hypercholesterolemia, managed with simvastatin 20 mg daily. The patient has nephrotic syndrome and chronic kidney disease, for which he follows up with nephrology. His kidney function is stable, and he is on mycophenolate, avoiding NSAIDs to prevent further kidney damage. He has a history of tubular adenoma of the colon, with the last colonoscopy performed in 2021, showing no significant findings. The patient reports occasional constipation, which is managed with dietary adjustments. The patient has peripheral vascular disease and is status post right inguinal hernia repair. He has been advised to avoid heavy lifting to prevent recurrence of the hernia. The patient reports a skin lesion, for which a dermatology referral has been made. He also has mild anemia and leukopenia, with recent blood work showing stable renal function and normal electrolytes. Health Maintenance - Colonoscopy last performed in 2021, no significant findings - Referral to dermatology for skin lesion - Advised to avoid NSAIDs to protect kidney function - Advised to avoid heavy lifting post-hernia repair - Blood pressure and cholesterol management with losartan, amlodipine, and simvastatin Social History - Alcohol: Consumes alcohol once a month, typically one bottle per occasion - Tobacco: Quit smoking in his 20s, no current use - Exercise: Engages in physical activity, advised to avoid heavy lifting Review of Systems - General: Denies fever, weight loss, or fatigue - Cardiovascular: Denies chest pain, palpitations, or syncope - Respiratory: Reports chronic cough, denies dyspnea or wheezing - Gastrointestinal: Reports occasional constipation, denies diarrhea or blood in stool - Neurological: Denies dizziness, headaches, or balance issues - Musculoskeletal: Reports knee pain, denies joint swelling or stiffness Physical Exam General: Cooperative, healthy appearing, comfortable, no acute distress and well developed Orientation: Patient oriented x3 Limitations: No limitations Head: Normal to inspection Ears: Hearing grossly normal bilaterally Nose: Normal external nose present Face and sinus: Normal facial exam Eyes: Appearance normal, both eyes and all related structures Neck: Normal visual inspection and Yes full ROM Respiratory: Normal respiratory effort and able to speak in complete sentences. Clear to auscultation bilaterally Cardiovascular: Regular rate and rhythm. Normal S1 and S2 GI: Normal to inspection. Soft to palpation and nontender Skin: No rashes or lesions noted Neuro: Patient oriented x3 Extremities: Normal to inspection Results - Labs: Anemia with hemoglobin 12.8 g/dL, mild leukopenia - Labs: Normal electrolytes, stable renal function - Labs: Normal liver function, cholesterol, B12, vitamin D, folic acid, and thyroid levels - Urinalysis: Normal findings Plan The patient will continue management of hypertension with losartan and amlodipine, and hypercholesterolemia with simvastatin. For nephrotic syndrome and chronic kidney disease, the patient will maintain follow-up with nephrology and continue mycophenolate therapy, avoiding NSAIDs to protect renal function. A dermatology referral has been made for evaluation of a skin lesion. The patient is advised to avoid heavy lifting to prevent recurrence of the inguinal hernia. For anemia and leukopenia, monitoring will continue with regular blood work to assess stability. The patient is advised to manage constipation with dietary adjustments and to monitor bowel habits. Patient was informed and verbally consented to the use of an ambient scribe for clinic note documentation during this visit. Discussion Notes During the visit, I discussed the importance of continuing current medications for hypertension and hypercholesterolemia, emphasizing the need to avoid NSAIDs to protect kidney function. I explained the referral to dermatology for the skin lesion and advised the patient to avoid heavy lifting to prevent hernia recurrence. We also reviewed the plan for managing anemia and leukopenia with regular monitoring and discussed dietary adjustments for constipation management. Patient Instructions - Continue taking losartan, amlodipine, and simvastatin as prescribed. - Avoid NSAIDs to protect kidney function. - Follow up with dermatology for skin lesion evaluation. - Avoid heavy lifting to prevent hernia recurrence. - Monitor bowel habits and manage constipation with dietary adjustments. Orders: Orders XR chest 2V Today R05.9 - Cough, unspecified XR Knee Fred 1or 2V Today M25.561 - Pain in right knee, M25.562 - Pain in left knee Referrals Dermatology Referral L81.9 - Disorder of pigmentation, unspecified
[2025-07-01 13:40] VITALS: BP 130/72; PULSE 72; TEMP 36.4; O2SAT 97; BMI 23.2
--- OUTSIDE RECORDS SUMMARY | 2025-07-01 13:41 | XMS_ITS | Clinical Summary ---
Author Organization [facility] Address [address] [place] [address] Phone Care Team Providers Care Tool And Die Maker/Designer Name Role Phone Edilberto Scherer MD Primary Care Provider [phone] Allergies No known active allergies Medications cholecalciferol [...] Colorectal Cancer Screening: Sigmoidoscopy 1999 Influenza Vaccine (#1) 2025 , 08/25/2020 Hepatitis B Vaccine Aged Out No longe r eligible based on patient's age to complete this topic Insurance [facility] Care Teams Tool And Die Maker/Designer Relationship Specialty Start Date End Date Edilberto Scherer MD [facility] [address] [place], [place] PCP - General Internal Medicine 07/30/21
--- OUTSIDE RECORDS SUMMARY | 2025-07-01 13:41 | XMS_ITS | Patient Health Record ---
Author Organization [facility] Address [address] [place] [address] Care Team Providers Care Marketing Automation Manager Name Role Phone Edilberto Scherer MD Primary Care Provider Paul Soto [phone] Reason For Referral No Information Medications Medication [...] Problem Status W/U Status Risk Notes Problem [id number] Encounter for screening for malignant neoplasm of colon (Z12.11) Active confirmed Problem [id number] Preprocedural examination (Z01.818) Active confirmed Problem Diverticulosis of colon (354156564) Diverticulosis of colon (K57.30) Active confirmed Plan Of Treatment Pending Test Test Name Order Date Pathology 01/23/2022 Future Test Test Name Order Date COLONOSCOPY 12/11/2021 Insurance Providers Payer Name Payer Address Payer Phone Subscriber Number Group Number Insured Name Patient Relationship to Insured Coverage Start Date Coverage End Date [facility] [address] [place] [address] [phone] [id number] EMELI LOVE Self - patient is the insured Medical (General) History Medical History History ICD Code Hypertension Kidney disease stage 2- Dr. Quintero-nephrotic syndrome-approx 2004--treated with prednisone---stable as of the 12/11/2021 OV Denies DE,DM,CVA,Lung disease Hyperlipidemia Surgical History Surgery Date(Month/Year)
== END 2025-07-01 14:51 | disposition home or self-care (01) ==
LOC: HO.HMCH 13:38
PROVIDERS: PCP Internal Medicine; Visit Provider Internal Medicine
DX: Z00.00 Encounter for general adult medical examination without abnormal findings (principal); I12.9 Hypertensive chronic kidney disease with stage 1 through stage 4 chronic kidney disease, or unspecified chronic kidney disease; N18.9 Chronic kidney disease, unspecified; K59.00 Constipation, unspecified; L81.9 Disorder of pigmentation, unspecified; E78.00 Pure hypercholesterolemia, unspecified; R05.9 Cough, unspecified; M25.561 Pain in right knee; M25.562 Pain in left knee

== ENCOUNTER → 2025-07-01 13:37 | Outpatient (BNVA) | payer MEDICARE, SELFPAY | PROVIDERS: PCP Internal Medicine; Visit Provider Internal Medicine | DX: Z00.00 Encounter for general adult medical examination without abnormal findings (principal); L81.9 Disorder of pigmentation, unspecified; I12.9 Hypertensive chronic kidney disease with stage 1 through stage 4 chronic kidney disease, or unspecified chronic kidney disease; N18.9 Chronic kidney disease, unspecified; K59.00 Constipation, unspecified; E78.00 Pure hypercholesterolemia, unspecified; R05.9 Cough, unspecified; I73.9 Peripheral vascular disease, unspecified; M25.561 Pain in right knee; M25.562 Pain in left knee | CPT/HCPCS: 96127; 99397 ==

== ENCOUNTER 2025-07-05 16:21 | Outpatient (REF) | payer MEDICARE, SELFPAY ==
--- NOTE | ~2025-07-05 | XR_ITS ---
EXAMINATION: XR KNEE AP STANDING CLINICAL INFORMATION: M25.561 - Pain in right knee COMPARISON: None available. TECHNIQUE: AP bilateral standing view of the knees was obtained. FINDINGS: There is joint space narrowing involving mostly the medial compartment of the left knee with sclerosis along the articular surface of the medial tibial plateau and subchondral cyst formation. No acute cortical disruption. No gross malalignment on the AP projection. No chondrocalcinosis in the menisci. No lytic or blastic lesions.. XR/XR Knee Fred 1or 2V IMPRESSION: Medial compartment osteoarthrosis/osteoarthritis, moderate, left knee. Electronically signed by: Jaxson Mcintyre MD 07/06/2025 07:04 AM EDT
--- NOTE | ~2025-07-05 | XR_ITS ---
EXAMINATION: XR CHEST CLINICAL INFORMATION: R05.9 - Cough, unspecified COMPARISON: July 30, 2024. TECHNIQUE: 2 views of the chest were obtained. FINDINGS: Pulmonary reticular nodular pattern. No consolidation pleural effusion or pneumothorax. Cardiomediastinal silhouette size is normal. Calcified plaque thoracic aortic arch. Multilevel thoracic and upper lumbar spondylosis. Degenerative changes both acromioclavicular joints. XR/XR chest 2V IMPRESSION: Chronic interstitial lung disease. Atherosclerosis, thoracic aorta. Multilevel thoracolumbar spondylosis. Electronically signed by: Jaxson Mcintyre MD 07/06/2025 07:02 AM EDT
--- OUTSIDE RECORDS SUMMARY | 2025-07-05 16:51 | XMS_ITS | Clinical Summary ---
Author Organization [facility] Address [address] [place] [address] Phone Care Team Providers Care Broiler Chef Or Cook Name Role Phone Edilberto Scherer MD Primary Care Provider [phone] Allergies No known active allergies Medications cholecalciferol [...] patient's age to complete this topic Insurance [facility] Care Teams Broiler Chef Or Cook Relationship Specialty Start Date End Date Edilberto Scherer MD [facility] [address] [place], [place] PCP - General Internal Medicine 07/30/21
--- OUTSIDE RECORDS SUMMARY | 2025-07-05 16:51 | XMS_ITS | Patient Health Record ---
Author Organization [facility] Address [address] [place] [address] Care Team Providers Care Test Operator Name Role Phone Edilberto Scherer MD Primary Care Provider Paul Soto [phone] Reason For Referral No Information Medications Medication [...] Problem Status W/U Status Risk Notes Problem [id number] Encounter for screening for malignant neoplasm of colon (Z12.11) Active confirmed Problem [id number] Preprocedural examination (Z01.818) Active confirmed Problem Diverticulosis of colon (787689849) Diverticulosis of colon (K57.30) Active confirmed Plan Of Treatment Pending Test Test Name Order Date Pathology 01/23/2022 Future Test Test Name Order Date COLONOSCOPY 12/11/2021 Insurance Providers Payer Name Payer Address Payer Phone Subscriber Number Group Number Insured Name Patient Relationship to Insured Coverage Start Date Coverage End Date [facility] [address] [place] [address] [id number] EMELI LOVE Self - patient is the insured Medical (General) History Medical History History ICD Code Hypertension Kidney disease stage 2- Dr. Quintero-nephrotic syndrome-approx 2004--treated with prednisone---stable as of the 12/11/2021 OV Denies CA,DM,CVA,Lung disease Hyperlipidemia Surgical History Surgery Date(Month/Year)
--- OUTSIDE RECORDS SUMMARY | 2025-07-05 16:51 | XMS_ITS | Encounter Summary ---
Author Organization [facility] Address [address] [place] [address] Phone Care Team Providers Care Sand Molder Name Role Phone Edilberto Scherer MD Primary Care Provider [phone] Encounter Details Date Type Department Care Team (Late st Contact Info) Description 02/27/2023 Telephone [facility] [address] [place] [address] Iehsa Spann Social History Tobacco Use Types Packs/Day [...] on filedocumented in this encounter Care Teams Sand Molder Relationship Specialty Start Date End Date Edilberto Scherer MD [facility] [address] [place] PCP - General Internal Medicine 07/30/21 documented as of this encounter
== END 2025-07-05 16:22 | disposition home or self-care (01) ==
LOC: HO.XRAY 16:21
PROVIDERS: PCP Internal Medicine; Visit Provider Internal Medicine
DX: M25.561 Pain in right knee (principal); M25.562 Pain in left knee; R05.9 Cough, unspecified
CPT/HCPCS: 71046; 73560

== ENCOUNTER → 2025-07-05 16:27 | Outpatient (BNV) | payer MEDICARE, SELFPAY | PROVIDERS: PCP Internal Medicine; Visit Provider Radiology Diagnostic Radiology | DX: J84.9 Interstitial pulmonary disease, unspecified (principal); I70.0 Atherosclerosis of aorta; M17.12 Unilateral primary osteoarthritis, left knee | CPT/HCPCS: 71046; 73560 ==

== ENCOUNTER 2025-09-07 15:28 | Outpatient (AMB) | payer MEDICARE, SELFPAY ==
--- NOTE | 2025-09-07 15:33 | MHC.OFFVIS ---
Vital Signs 09/07/25 15:34 Height 5 ft 2.5 in Weight 130 lb 1.164 oz BMI 23.4 BP 150/72 H Blood Pressure Location Lt brachial Position Sitting Pulse 60 Pulse Source Pulse Oximeter Pulse Oximetry (%) 98 Oxygen Delivery Method Room Air Intake Visit Reasons: ILD Intake Note: pt is here as a new patient, and states persistent cough Relay Repairer Required: No Welding Machine Operator Ultrasonic: Welding Machine Operator Ultrasonic offered & declined Allergies No Known Allergies Allergy (Unknown, Verified 09/07/25 16:44) Medication List - Last Reconciled 09/07/25 by Talita Soriano MD amlodipine 2.5 mg PO DAILY cholecalciferol (vitamin D3) 125 mcg PO DAILY diclofenac sodium 1% (Voltaren Arthritis Pain) 4 grams topical QID losartan 100 mg PO DAILY mycophenolate mofetil 500 mg PO BID simvastatin 20 mg PO DAILY Do you need a note to return to daycare/school/sports/work: No HPI HPI ILD: Details: This 75 years old gentleman, very pleasant, is being seen for the 1st time because he has ongoing cough for about 1 year. He had mild intermittent cough for many years but since about 1 year ago it has become more frequent. He states that the cough is a minor. Problem and he is not worried about this However his daughter is more concerned and she states that his cough is more, than he describes it is quite frequent during the day and as well as at night. He has had no history of any respiratory infection that he can recall, he denies wheezing, and has no significant shortness of breath on exertion. Back in early s he was treated for question of TB ( probably a primary complex) and after that there was no residual prominent. He smoked for 15 to 20 years and quit in 1986. He has not been exposed to any chemical dust or fumes. 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 He is being followed by nephrology service, has had a few flare ups. And his the renal disease has been controlled with use of immunosuppressant agents, in the beginning he had a few courses of prednisone as well. Currently he is on mycophenolate 500 mg b.i.d.. He has mild hypertension controlled with losartan and small dose of amlodipine also has mild hyperlipidemia which is controlled with simvastatin. [facility] Medical History Peripheral neuropathy Mild depression Hearing deficit FSGS (focal segmental glomerulosclerosis) Chronic renal insufficiency Hypercholesterolemia Alcohol intoxication Hypertension Surgical History History of hemorrhoidectomy H/O colonoscopy Hx of hand surgery Social History Housing: House Are you a primary day care home mother to a significant other at home: No Do you presently have visiting nurse or other home services: No Alcohol intake: current Alcohol intake frequency: holidays/special occasions only Comment: once a month 1 drinks Patient Tobacco Use Status: Former Tobacco user Tobacco use type: Cigarette Years Smoked: 1986 e-Cigarette/Vaping Use: Never Used Advance Directives Date on File: 01/24/22 service: No Current occupational status: retired Cognitive needs: No Hearing needs: No Vision needs: Yes Review of Systems Const All systems reviewed & are unremarkable except as noted in HPI and below Eyes Reports no additional complaints ENT Reports no additional complaints Card Denies chest pain, Denies irregular heart rhythm and Denies leg edema Resp Reports as per HPI GI Reports no additional complaints Reports no additional complaints Musc Reports no additional complaints Skin/Breast Reports system reviewed and no additional complaints, except as documented Neuro Reports no additional complaints Psych Reports no additional complaints Endo Reports no additional complaints Rory/Lymph Reports no additional complaints Aller/Immun Reports no additional complaints Physical Exam Vital Signs: Last Vital Signs Pulse 60 09/07/25 15:34 BP 150/72 H 09/07/25 15:34 Pulse Ox 98 09/07/25 15:34 Oxygen Delivery Method Room Air 09/07/25 15:34 BMI result Body Mass Index 23.4 Const General: healthy appearing, comfortable, no acute distress, alert and awake Orientation/consciousness: patient oriented x3 HEENT Head: Yes normal to inspection General nose exam: No nasal polyps present and No nasal discharge present Face and sinus: Yes sinuses nontender Mouth: oropharynx normal Throat: Yes posterior oropharynx normal Eyes General: appearance normal, both eyes and all related structures Neck Neck: Yes normal visual inspection, Yes no lymphadenopathy, Yes trachea midline and Yes no JVD Thyroid: Thyroid normal Chest Chest palpation & inspection: normal inspection of the chest, normal palpation of entire chest wall and no tenderness Resp Effort & Inspection: normal respiratory effort Auscultation: clear to auscultation bilaterally, crackles (He does have faint inspiratory crackles over both lower lobes posteriorly), no rhonchi and no wheezes Cardio Palpation: normal PMI Rate: regular rate Rhythm: regular rhythm Heart sounds: no gallops and no murmurs Peripheral pulses: Peripheral pulses 2+ throughout GI Palpation (GI): Soft to palpation, nontender, No hepatosplenomegaly present and no masses Auscultation: normal bowel sounds Back/Spine/Pelvis Thoracic/Lumbar Spine: thoracic and lumbar spine normal to inspection Skin General skin exam: no rashes or lesions noted Neuro General: patient oriented x3 and no focal motor deficits Cranial nerves: Yes CN's II-XII intact bilaterally Extrem General: Yes normal to inspection, Yes no clubbing, cyanosis or edema and Yes no calf tenderness Psych Appearance: grossly normal and well kempt Speech and movement: Normal speech and movement present Results Reviewed Results Reviewed: CHEST XRAY 07/05/25 Chronic interstitial lung disease. Atherosclerosis, thoracic aorta. Multilevel thoracolumbar spondylosis. Assessment & Plan Assessment & Plan (1) Cough: Comment: CHRONIC COUGH, MILD, INTERMITTENT, MORE FREQUENT IN THE PAST 1 YEAR. It is most likely due to interstitial lung disease as indicated on the chest x-ray. It may flare up to some extent during the year due to mild viral infections. At present it is mild and patient is not concerned about these symptoms. Actually it is the family members who are more concerned and want to know the exact cause and possible treatment for this. Code(s): R05.9 - Cough, unspecified Category: Medical Plan: I explained that the cough is most likely due to interstitial lung disease which itself is mild. (2) Interstitial lung disease: Comment: Chest x-ray in June 2025, does show changes of mild chronic interstitial lung disease/pulmonary fibrosis. Code(s): J84.9 - Interstitial pulmonary disease, unspecified Category: Medical Plan: I have ordered CT scan of the chest for detailed findings I explained to the patient and especially to his daughter that may need to confirm the presence and severity of the interstitial lung disease. Also ordered pulmonary function test. At present he does not need any active treatment. If needed he can symptomatic treatment to control the cough. Coding Level of Care Code New Pt Level 3 (89836) Diagnoses Cough R05.9 Interstitial lung disease J84.9
[2025-09-07 15:34] VITALS: BP 150/72; PULSE 60; O2SAT 98; BMI 23.4
--- OUTSIDE RECORDS SUMMARY | 2025-09-07 19:49 | XMS_ITS | Patient Health Record ---
Author Organization [facility] Address [address] [place] [address] Care Team Providers Care Pad Making Machine Operator Name Role Phone Edilberto Scherer MD Primary Care Provider Paul Soto [phone] Reason For Referral No Information Medications Medication SIG (Take, Route, Frequency, Duration) Notes Start Date End Date Status Vitamin C Active Simvastatin 20 MG Oral; Duration: 30 Active Losartan Potassium 100 MG Oral; Duration: 90 Active Immunizations Vaccine Route Administration Date [...] Problem Status W/U Status Risk Notes Problem Screening for malignant neoplasm of colon (550580829) Encounter for screening for malignant neoplasm of colon (Z12.11) Active confirmed Problem Preprocedural examination (612998536117837) Preprocedural examination (Z01.818) Active confirmed Problem Diverticulosis of colon (104581164) Diverticulosis of colon (K57.30) Active confirmed Plan Of Treatment Pending Test Test Name Order Date Pathology 01/23/2022 Future Test Test Name Order Date COLONOSCOPY 12/11/2021 Insurance Providers Payer Name Payer Address Payer Phone Subscriber Number Group Number Insured Name Patient Relationship to Insured Coverage Start Date Coverage End Date [facility] [address] [place] [address] [phone] [id number] EMELI LOVE Self - patient is the insured Medical (General) History Medical History History ICD Code Hypertension Kidney disease stage 2- Dr. Quintero-nephrotic syndrome-approx 2004--treated with prednisone---stable as of the 12/11/2021 OV Denies RI,DM,CVA,Lung disease Hyperlipidemia Surgical History Surgery Date(Month/Year)
--- OUTSIDE RECORDS SUMMARY | 2025-09-07 19:49 | XMS_ITS | Clinical Summary ---
Author Organization [facility] Address [address] [place] [address] Phone Care Team Providers Care Print Designer Name Role Phone Edilberto Scherer MD Primary Care Provider [phone] Allergies No known active allergies Medications cholecalciferol [...] patient's age to complete this topic Insurance [facility] Care Teams Print Designer Relationship Specialty Start Date End Date Edilberto Scherer MD [facility] [address] [place], [place] PCP - General Internal Medicine 07/30/21
--- OUTSIDE RECORDS SUMMARY | 2025-09-07 19:49 | XMS_ITS | Encounter Summary ---
Author Organization [facility] Address [address] [place] [address] Phone Care Team Providers Care Commercial Sales Consultant Name Role Phone Edilberto Scherer MD Primary Care Provider [phone] Encounter Details Date Type Department Care Team (Late st Contact Info) Description 02/27/2023 Telephone [facility] [address] [place] [address] Iesha Spann Social History Tobacco [...] on filedocumented in this encounter Care Teams Commercial Sales Consultant Relationship Specialty Start Date End Date Edilberto Scherer MD [facility] [address] [place] PCP - General Internal Medicine 07/30/21 documented as of this encounter
== END 2025-09-07 16:05 | disposition home or self-care (01) ==
LOC: HO.HPS 15:29
PROVIDERS: PCP Internal Medicine; Visit Provider Internal Medicine
DX: R05.9 Cough, unspecified (principal); J84.9 Interstitial pulmonary disease, unspecified
CPT/HCPCS: 99203

== ENCOUNTER → 2025-09-07 15:28 | Outpatient (BNVA) | payer MEDICARE, SELFPAY | PROVIDERS: PCP Internal Medicine; Visit Provider Internal Medicine | DX: J84.9 Interstitial pulmonary disease, unspecified (principal); R05.9 Cough, unspecified | CPT/HCPCS: 99202 ==

== ENCOUNTER 2025-09-10 08:11 | Outpatient (REF) | payer MEDICARE, SELFPAY ==
--- OUTSIDE RECORDS SUMMARY | 2025-09-10 08:15 | XMS_ITS | Clinical Summary ---
Author Organization [facility] Address [address] [place] [address] Phone Care Team Providers Care Tv News Director Name Role Phone Edilberto Scherer MD Primary Care Provider [phone] Allergies No known active allergies Medications cholecalciferol [...] patient's age to complete this topic Insurance [facility] Care Teams Tv News Director Relationship Specialty Start Date End Date Edilberto Scherer MD [facility] [address] [place], [place] PCP - General Internal Medicine 07/30/21
--- OUTSIDE RECORDS SUMMARY | 2025-09-10 08:15 | XMS_ITS | Patient Health Record ---
Author Organization [facility] Address [address] [place] [address] Care Team Providers Care Perfect Binder Setter Name Role Phone Edilberto Scherer MD Primary Care Provider Paul Soto [phone] Reason For Referral No Information Medications Medication [...] Problem Screening for malignant neoplasm of colon (842354615) Encounter for screening for malignant neoplasm of colon (Z12.11) Active confirmed Problem Preprocedural examination (762366629296997) Preprocedural examination (Z01.818) Active confirmed Problem Diverticulosis of colon (588666511) Diverticulosis of colon (K57.30) Active confirmed Plan Of Treatment Pending Test Test Name Order Date Pathology 01/23/2022 Future Test Test Name Order Date COLONOSCOPY 12/11/2021 Insurance Providers Payer Name Payer Address Payer Phone Subscriber Number Group Number Insured Name Patient Relationship to Insured Coverage Start Date Coverage End Date [facility] [address] [place] [address] [phone] [id number] EMELI LOVE Self - patient is the insured Medical (General) History Medical History History ICD Code Hypertension Kidney disease stage 2- Dr. Quintero-nephrotic syndrome-approx 2004--treated with prednisone---stable as of the 12/11/2021 OV Denies GA,DM,CVA,Lung disease Hyperlipidemia Surgical History Surgery Date(Month/Year)
--- OUTSIDE RECORDS SUMMARY | 2025-09-10 08:15 | XMS_ITS | Encounter Summary ---
Author Organization [facility] Address [address] [place] [address] Phone Care Team Providers Care Project Control Manager Name Role Phone Edilberto Scherer MD Primary Care Provider [phone] Encounter Details Date Type Department Care Team (Late st Contact Info) Description 02/27/2023 Telephone [facility] [address] [place] [address] Iesha Spann Social History Tobacco [...] on filedocumented in this encounter Care Teams Project Control Manager Relationship Specialty Start Date End Date Edilberto Scherer MD [facility] [address] [place] PCP - General Internal Medicine 07/30/21 documented as of this encounter
[2025-09-10 11:40] LABS: Appearance Urine Clear; Glucose Urine UA Negative (Negative); PH 7.0 (5.0-9.0); Specific Gravity - Urine 1.015 (1.005-1.025)
[2025-09-10 11:55] LABS: Anion Gap 9 (12-20); Blood Urea Nitrogen 16 mg/dL (9-16); Calcium 9.6 mg/dL (8.4-10.2); Carbon Dioxide 29 mmol/L (22-29); Chloride 107 mmol/L (96-108); Estimated Glomerular Filt Rate > 60; Potassium 4.1 mmol/L (3.3-5.1); Sodium 141 mmol/L (135-145)
== END 2025-09-10 08:12 | disposition home or self-care (01) ==
LOC: HO.HMGCLDS 08:11
PROVIDERS: PCP Internal Medicine; Visit Provider Internal Medicine Hypertension Specialist
DX: N18.9 Chronic kidney disease, unspecified (principal)
CPT/HCPCS: 36415; 80048; 81003

== ENCOUNTER 2025-09-15 10:09 | Outpatient (AMB) | payer MEDICARE, SELFPAY ==
[2025-09-15 10:18] VITALS: BP 130/74; PULSE 62; O2SAT 98; BMI 23.2
--- NOTE | 2025-09-15 10:18 | HO.NEPHOV ---
Vital Signs 09/15/25 10:18 Height 5 ft 2.5 in Weight 129 lb BMI 23.2 BP 130/74 Blood Pressure Location Rt brachial Position Sitting Pulse 62 Pulse Source Pulse Oximeter Pulse Oximetry (%) 98 Oxygen Delivery Method Room Air Intake Visit Reasons: 6 MO FU lvm Butane Compressor Operator Required: No Accompanied by: Self / Same As Patient Allergies No Known Allergies Allergy (Unknown, Verified 09/15/25 10:19) Medication List - Last Reconciled 09/15/25 by Jaylan Quintero MD amlodipine 2.5 mg PO DAILY cholecalciferol (vitamin D3) 125 mcg PO DAILY diclofenac sodium 1% (Voltaren Arthritis Pain) 4 grams topical QID losartan 100 mg PO DAILY mycophenolate mofetil 500 mg PO BID simvastatin 20 mg PO DAILY HPI Comments Details: 73 yr old man with FSGS Treated with immunosuppresants and currently in remission h/o 3 episodes of relapse h/o HTN and dyslipidemia No new issues today 03/17/2025 Overall doing well no specific complaints. He has a skin lesion on the right lower extremity which is hyperpigmented 09/15/25 The patient is a 75-year-old male for follow up regarding FSGS . His kidney function was last assessed on September 10, showing stable results with no protein detected in the urine, indicating effective management of his condition. The patient reports experiencing weakness, which has become more pronounced recently. He denies any swelling, and his blood pressure has been stable. The patient also mentions constipation, which he describes as not currently problematic. [facility] Medical History Peripheral neuropathy Mild depression Hearing deficit FSGS (focal segmental glomerulosclerosis) Chronic renal insufficiency Hypercholesterolemia Alcohol intoxication Hypertension Surgical History History of hemorrhoidectomy H/O colonoscopy Hx of hand surgery Social History Housing: House Are you a primary care team coordinator scheduler to a significant other at home: No Do you presently have visiting nurse or other home services: No Alcohol intake: current Alcohol intake frequency: holidays/special occasions only Comment: once a month 1 drinks Patient Tobacco Use Status: Former Tobacco user Tobacco use type: Cigarette Years Smoked: quit 1986 e-Cigarette/Vaping Use: Never Used Advance Directives Date on File: 01/24/22 service: No Current occupational status: retired Cognitive needs: No Hearing needs: No Vision needs: Yes Physical Exam Vital Signs: Last Vital Signs Pulse 62 09/15/25 10:18 BP 130/74 09/15/25 10:18 Pulse Ox 98 09/15/25 10:18 Oxygen Delivery Method Room Air 09/15/25 10:18 BMI result Body Mass Index 23.2 Results Reviewed Nephrology Results: Hgb, (14.0-18.0) 12.8 g/dl L 03/09/25 WBC, (4.8-10.8) 4.6 X10*3/uL L 03/09/25 Plt Count, (160-400) 196 X10*3/uL 03/09/25 Sodium, (135-145) 141 mmol/L 09/10/25 Potassium, (3.3-5.1) 4.1 mmol/L 09/10/25 Chloride, (96-108) 107 mmol/L 09/10/25 Carbon Dioxide, (22-29) 29 mmol/L 09/10/25 BUN, (9-16) 16 mg/dL 09/10/25 Creatinine, (0.5-1.4) 0.85 mg/dL 09/10/25 Calcium, (8.4-10.2) 9.6 mg/dL 09/10/25 Urine Protein, (Neg-Trace) Negative mg/dL 09/10/25 Urine Creatinine 125.04 mg/dL 03/09/25 Assessment & Plan Assessment & Plan (1) CKD (chronic kidney disease): Code(s): N18.9 - Chronic kidney disease, unspecified Category: Medical Qualifiers: Chronic kidney disease stage: unspecified stage Qualified Code(s): N18.9 - Chronic kidney disease, unspecified (2) FSGS (focal segmental glomerulosclerosis): Code(s): N05.1 - Unspecified nephritic syndrome with focal and segmental glomerular lesions Category: Medical (3) Hypertension: Code(s): I10 - Essential (primary) hypertension Category: Medical Qualifiers: Hypertension type: primary hypertension Qualified Code(s): I10 - Essential (primary) hypertension Plan 75 yr old man with FSGS in remission No significant proteinuria Creatinine is stable in the normal range Continue Mycophenalate Volume status is normal BP well controlled Continue with ARB for protection Avoid nephrotoxins including NSAIDS Orders: Orders Creatinine Urine 6 Months N04.9 - Nephrotic syndrome with unspecified morphologic changes, N18.9 - Chronic kidney disease, unspecified Total Protein Urine Random 6 Months N04.9 - Nephrotic syndrome with unspecified morphologic changes, N18.9 - Chronic kidney disease, unspecified Basic Metabolic Panel 6 Months N04.9 - Nephrotic syndrome with unspecified morphologic changes, N18.9 - Chronic kidney disease, unspecified UA and rflx microscopic 6 Months N04.9 - Nephrotic syndrome with unspecified morphologic changes, N18.9 - Chronic kidney disease, unspecified Complete Blood Count Auto Diff 6 Months N04.9 - Nephrotic syndrome with unspecified morphologic changes, N18.9 - Chronic kidney disease, unspecified Coding Level of Care Code Est Pt Level 4 (92422) Diagnoses Chronic kidney disease, unspecified CKD stage N18.9 Chronic kidney disease stage: unspecified stage FSGS (focal segmental glomerulosclerosis) N05.1 Primary hypertension I10 Hypertension type: primary hypertension
--- OUTSIDE RECORDS SUMMARY | 2025-09-15 11:51 | XMS_ITS | Encounter Summary ---
Author Organization [facility] Address [address] [place] [address] Phone Care Team Providers Care Metal Trim Erector Name Role Phone Edilberto Scherer MD Primary Care Provider [phone] Encounter Details Date Type Department Care Team (Late st Contact Info) Description 02/27/2023 Telephone [facility] [address] [place] [address] Iesha Spann Social History Tobacco [...] on filedocumented in this encounter Care Teams Metal Trim Erector Relationship Specialty Start Date End Date Edilberto Scherer MD [facility] [address] [place] PCP - General Internal Medicine 07/30/21 documented as of this encounter
--- OUTSIDE RECORDS SUMMARY | 2025-09-15 11:51 | XMS_ITS | Patient Health Record ---
Author Organization [facility] Address [address] [place] [address] Care Team Providers Care It Telecom Technician Name Role Phone Edilberto Scherer MD Primary Care Provider Paul Soto [phone] Reason For Referral No Information Medications Medication [...] Problem Screening for malignant neoplasm of colon (445153176) Encounter for screening for malignant neoplasm of colon (Z12.11) Active confirmed Problem Preprocedural examination (198198642562933) Preprocedural examination (Z01.818) Active confirmed Problem Diverticulosis of colon (003967150) Diverticulosis of colon (K57.30) Active confirmed Plan Of Treatment Pending Test Test Name Order Date Pathology 01/23/2022 Future Test Test Name Order Date COLONOSCOPY 12/11/2021 Insurance Providers Payer Name Payer Address Payer Phone Subscriber Number Group Number Insured Name Patient Relationship to Insured Coverage Start Date Coverage End Date [facility] [address] [place] [address] [id number] EMELI LOVE Self - patient is the insured Medical (General) History Medical History History ICD Code Hypertension Kidney disease stage 2- Dr. Quintero-nephrotic syndrome-approx 2004--treated with prednisone---stable as of the 12/11/2021 OV Denies MO,DM,CVA,Lung disease Hyperlipidemia Surgical History Surgery Date(Month/Year)
--- OUTSIDE RECORDS SUMMARY | 2025-09-15 11:51 | XMS_ITS | Clinical Summary ---
Author Organization [facility] Address [address] [place] [address] Phone Care Team Providers Care Cosmetic Consultant Name Role Phone Edilberto Scherer MD Primary Care Provider [phone] Allergies No known active allergies Medications cholecalciferol [...] patient's age to complete this topic Insurance [facility] Care Teams Cosmetic Consultant Relationship Specialty Start Date End Date Edliberto Scherer MD [facility] [address] [place], [place] PCP - General Internal Medicine 07/30/21
== END 2025-09-15 10:33 | disposition home or self-care (01) ==
PROVIDERS: PCP Internal Medicine; Visit Provider Internal Medicine Hypertension Specialist
DX: I12.9 Hypertensive chronic kidney disease with stage 1 through stage 4 chronic kidney disease, or unspecified chronic kidney disease (principal); N18.9 Chronic kidney disease, unspecified; N05.1 Unspecified nephritic syndrome with focal and segmental glomerular lesions
CPT/HCPCS: 99214

== ENCOUNTER → 2025-09-15 10:09 | Outpatient (BNVA) | payer MEDICARE, SELFPAY | PROVIDERS: PCP Internal Medicine; Visit Provider Internal Medicine Hypertension Specialist | DX: I10 Essential (primary) hypertension (principal); N05.1 Unspecified nephritic syndrome with focal and segmental glomerular lesions; N18.9 Chronic kidney disease, unspecified; R53.1 Weakness; K59.00 Constipation, unspecified | CPT/HCPCS: 99212 ==